=== PATIENT | male | born 1950 | race Caucasian/White ===

== ENCOUNTER 2016-09-11 19:50 | Inpatient (IN) | payer MEDICARE, OTHER ==
[~2016-09-11] VITALS: Ht 177.8 cm; Wt 114.9 kg
[2016-09-11] VITALS (10 sets, daily range): BP systolic 75–98; BP diastolic 39–83; PULSE 71–92; RESP 11–33; O2SAT 93–100
[2016-09-11] MEDS ORDERED: Heparin 1,000 Unit/mL 10 mL Inj ONE (20:04)
[2016-09-11] MEDS ORDERED: Nitroglycerin 50,000 mcg/250 mL D5W Premix IV ONE (20:04)
[2016-09-11] MEDS ORDERED: 0.9% Sodium Chloride 500 ML IV ONE ×2 (20:05→20:10)
[2016-09-11] MEDS ORDERED: Atropine 1 mg/10 mL (Code) Syringe ONE (20:05)
[2016-09-11] MEDS ORDERED: 0.9% Sodium Chloride 2,000 ML ONE (20:05)
[2016-09-11 20:18] LABS: Mean Corpuscular Hemoglobin 27.8 pg (27.0-35.0); Mean Corpuscular Volume 92.4 fL (81-100); Platelet Count 131 bil/L (150-400)
--- NOTE | 2016-09-11 20:25 | DRSVH ---
PROCEDURE: X-RAY CHEST ONE VIEW, PORTABLE ([id number]) INDICATIONS: intubated TECHNIQUE: One view of the chest was acquired. COMPARISON: None. FINDINGS: Surgical changes and devices: Pacemaker is present. Endotracheal tube is noted approximately 4.1 cm s uperior to the arash. Lungs and pleura: Increased pulmonary vascularity is present as well as increased retrocardiac opacit y. Mediastinum: Mediastinal contours appear normal. Heart size is enlarged. Bones and chest wall: No suspicious bony lesions. Overlying soft tissues appear unremarkable. IMPRESSION: Cardiomegaly with increased pulmonary vascularity suggestive of edema. In addition, there is increased retrocardiac opacity which could be represent a focal edema, atelectasis or potentially developing pneumonia. Dictated by: Leeanna Kruse M.D. on 09/11/2016 at 20:22 Approved by: Leeanna Kruse M.D. on 09/11/2016 at 20:23
--- NOTE | 2016-09-11 20:26 | ED.REPORT ---
HPI-General Illness Date of Service Sep 11, 2016 ED Provider: Dr. Christiano Bhagat M.D. A 66 year old male with a history of CHF, COPD, and multiple MIs s/p pacemaker placement presents to the ED via EMS intubated after having developed severe shortness of breath this evening. The patient's friend called EMS after he became short of breath and began to complain of left-sided chest pain. EMS found the patient tripoding and hypertensive. He was given Nitro x2 and placed on CPAP before eventually being intubated in the field. The patient was given Ketamine, Rocuronium, Morphine (10mg), and Valium (10mg) en route. There was no report of abdominal pain, nausea, vomiting, or fever. The patient has been intubated previously. Nursing Notes Stated Complaint: STEMI Chief Complaint: Critical Care/Intubated Nursing Notes Reviewed: Yes Allergies: Uncoded Allergies: SULFA (Allergy, Unknown, 09/11/16) General Time Seen by MD: 19:49 Chief Complaint Other (Shortness of Breath, Intubated) Hx Obtained From: EMS Unable to Obtain Hx: Patient condition (Intubated) Arrived By: Ambulance Sudden in Onset?: No Onset Occurred: 1 - 4 hours ago Symptom Duration: Since onset Associated with: Reports: Chest pain Pertinent Negative: Relieved by nothing Context Related History: Reports COPD Recent Healthcare: No recent doctor visit Similar Sx Previous: Yes Past Medical History Past Medical History Notes: Discharge diagnoses [facility] 08[facility]16: Dyspnea on exertion CHF Severe mitral regurgitation Recent syncopal event with ventricular tachycardia and ICD defibrillator firing Dilated non-ischemic CHrEF last EF 30-35% also with severe mitral regurgitation Nonobstructing disease on angiograph 2010 Patient is FULL CODE Past Medical History CHF COPD Multiple [place] Past Surgical History Pacemaker placement Smoking History Unknown if Ever Smoker Social History Other Social History: Good social support Review of Systems Unable to Obtain ROS Patient condition, Intubated Physical Exam Vital Signs Vital Signs Date Time Temp Pulse Resp B/P Pulse Ox O2 Delivery O2 Flow Rate FiO2 09/11/16 22:29 94 09/11/16 21:57 77 26 85/44 95 Mechanical Ventilator 09/11/16 21:18 92 33 94/73 97 Mechanical Ventilator 09/11/16 20:52 75 20 91/69 95 Mechanical Ventilator 09/11/16 20:42 75 20 84/63 100 Mechanical Ventilator 09/11/16 20:23 73 80/55 99 Mechanical Ventilator 09/11/16 20:03 73 19 76/39 09/11/16 19:57 71 11 90/66 100 Mechanical Ventilator 09/11/16 19:50 36.0 74 20 75/52 100 Mechanical Ventilator Initial VS: Reviewed ENT: Conjunctiva normal, No scleral icterus Skin: Warm, Dry, No cyanosis Alertness: Positive: Unresponsive Intubated Head / Eyes: Atraumatic, Normocephalic Pupil size 2mm, fixed Respiratory / Chest: Breath sounds = bilat Cardiovascular: Heart rate NL, Regular rhythm, No murmurs Heart Sounds / Murmur: Positive: Heart sounds diminished CARDIOVASCULAR: Pacemaker implant noted Abdomen: Soft No organomegaly Interpretation & Diagnostics Interpretation & Diagnostics: Initial K 6.2 with bicarb of 176 and lactate of 8.9 BLOOD GAS REPORT: Time: 20:22 pH 7.137 pCO2 49 pO2 98.9 cHCO3 16.5 cBase(B) -11.8 US ABDOMEN-LIMITED: IMPRESSION: Gallbladder wall thickening and slight pericholecystic fluid. This appearance could be due to acute or chronic cholecystitis or hepatocellular dysfunction. No gallstones identified. Nonvisualized pancreas. Transmitted to ED by radiologist Adamaris Conde M.D. at 09/12/2016 - 12:00:40 AM PDT Lab Results Interpretation Result Diagram: 09/11/162 09/11/16 2252 Test 09/11/16 20:00 09/11/16 22:22 White Blood Count 16.5th/mm3 (3.8-10.1) Red Blood Count 4.90mil/mm3 (4.40-5.80) Mean Corpuscular Volume 92.4fL (81-100) Mean Corpuscular Hemoglobin 27.8pg (27.0-35.0) Mean Corpuscular Hemoglobin Concent 30.0% (32.0-37.0) Red Cell Distribution Width 17.2% (12.3-15.4) Platelet Count 131bil/L (150-400) Neutrophils (%) (Auto) 57% (40-74) Lymphocytes (%) (Auto) 11% (14-46) Monocytes (%) (Auto) 25% (4-12) Eosinophils (%) (Auto) 0% (0-5) Basophils (%) (Auto) 0% (0-3) Band Neutrophils % 7% (1-5) Nucleated Red Blood Cells 3/100 WBC (0-24) Prothrombin Time 16.5sec (8.1-12.5) Prothromb Time International Ratio 1.53ratio D-Dimer 3.20mg/L FEU (<0.50) Magnesium Level 2.7mg/dL (1.6-2.6) Troponin T 0.068ug/L (0.0-0.011) Pro-B-Type Natriuretic Peptide 46430wd/mL (0-376) Lipase 75U/L (13-60) Hold Flores Top Tube Received (Received) Digoxin Level < 0.3nG/mL (0.9-2.0) Urine Color Dark yellow (YELLOW) Urine Appearance Slightly cloudy Urine pH 5.5 (5.0-8.0) Urine Specific Thorp 1.021 (1.003-1.035) Urine Protein >300mg/dL (NEG,TRACE) Urine Glucose (UA) 100mg/dL (NEGATIVE) Urine Ketones Negativemg/dL (NEGATIVE) Urine Occult Blood Large (NEGATIVE) Urine Nitrite Negative (NEGATIVE) Urine Bilirubin Moderate (NEGATIVE) Urine Ictotest Positive (Negative) Urine Urobilinogen 2.0mg/dL (NORMAL) Urine Leukocyte Esterase Trace (NEGATIVE) Urine RBC 11-50/hpf (0-2) Urine WBC 11-50/hpf (0-5) Urine Epithelial Cells Few/hpf (NONE-MOD) Urine Crystals Amorphous urates (NONE Urine Bacteria Moderate/hpf (NONE-FEW) Urine Hyaline Casts None/lpf (NONE) Urine Granular Casts None seen (NONE SEEN) Urine Waxy Casts None seen (NONE SEEN) Urine Red Blood Cell Casts None seen (NONE SEEN) Urine White Blood Cell Casts None seen (NONE SEEN) Urine Mucus None seen (None Seen) Urine Trichomonas None seen (NONE SEEN) Urine Yeast None (NONE SEEN) Urinalysis Comment None Urine Culture Reflexed Indicated ECG Interpretation ECG Interpretation: Regular wide-complex rhythm rate 75 No pacer spikes seen Time: 19:54 Interpreted by: ED physician X-Ray Chest Interpretation Chest Xray Interpretation: IMPRESSION: Cardiomegaly with increased pulmonary vascularity suggestive of edema. In addition, there is increased retrocardiac opacity which could be represent a focal edema, atelectasis or potentially developing pneumonia. Dictated by: Leeanna Kruse M.D. on 09/11/2016 at 20:22 View: Portable, 1 view Interpretation / Wet Read by: Interpret - Radiologist Chest Xray Interpretation: Surgical changes and devices: Pacemaker and endotracheal tube are unchanged. Right central venous catheters present the tip overlying the distal SVC. Nasogastric tube is present with distal tip projecting below the left hemidiaphragm. IMPRESSION: Interval support lines as above. Persistent bilateral patchy opacities as noted. Dictated by: Leeanna Kruse M.D. on 09/11/2016 at 22:08 View: Portable, 1 view Interpretation / Wet Read by: Interpret - Radiologist CT Head Interpretation CONCLUSION: No acute intracranial abnormality. Mild chronic changes. Transmitted to ED by Adamaris Conde M.D. at 09/12/2016 - 12:07:24 AM PDT Study: Head CT no contrast Interpretation / Wet Read by: Interpret - Radiologist CT Abd / Pelvis Interpretation CONCLUSION: Cardiomegaly. Pacemaker leads. Moderate dependent consolidation with air bronchograms in the lung bases. Small right pleural effusion. Coronary artery calcifications. Mild perihepatic and lower bowel fluid. Thickwalled appearance of the gallbladder is minimally distended. It contains mildly dense material suggesting vicarious contrast excretion, correlate with any prior angiogram or enhanced study. No evidence of bowel obstruction. Mild distal diverticulosis. Degenerative spine changes. Gonzalez catheter in the bladder. Mild fat-containing inguinal hernias. Transmitted to ED by Adamaris Conde M.D at 09/12/2016 - 12:07:24 AM PDT Study type: Abdominal CT no contrast Interpretation / Wet Read by: Interpret - Radiologist Procedures Central Line Placement Time: 21:13 Procedure Performed by: ED physician Consent / Setup / Site Prep: No consent - emergent, Time-out performed, Oxygen administered, Pulse oximeter applied, surveillance system monitor applied, Hand hygiene observed, Standard surgical scrub, Max barrier precaution, Sterile drapes applied, Position Trendelenburg Skin Preparation Agent: Hibiclens - Chlorhexidine Local Anesthesia: Lidocaine 1% Side / Location / Ultrasound: Internal jugular right, Ultrasound assisted Catheter / Lumen / Technique: Catheter size (7 German), Triple lumen, Seldinger technique, Good blood return, Secured w catheter device Post-Procedure / Complications: Dressing placed, CXR neg for pneumothorax, Condition improved, Tolerated procedure well, Patient stable Re-Eval/Medical Decision Med Decision/Clinical Course 65-year-old male presents critically ill after being intubated in the field. EMS report was of a STEMI, on my review of field tracings and our tracing here I did not agree. STEMI activation was canceled. The patient was hypotensive on arrival, he was given cautious fluid resuscitation based on concern for congestive heart failure. Though not febrile and although he had received steroids in the field so could possibly have had a leukocytosis on that basis, there was concern for pneumonia on the chest x-ray findings and he was initially treated with ICU/healthcare associated pneumonia coverage. When the transaminitis and elevated bilirubin and alkaline phosphatase were noted, a abdominal ultrasound was obtained and this was compatible with cholecystitis, coverage was provided with meropenem and surgery was consulted. Patient was hyperkalemic, this was treated with calcium gluconate, insulin and dextrose. He remained persistently hypotensive and was started on Levophed. Given his critical illness and anticipation of need for monitoring central venous pressures repleted repeat blood draws and multiple medications including vasoactive agents a central line was placed. No acute findings on plain CT, noncontrast CT abdomen did demonstrate the same findings as ultrasound had concern for possible cholecystitis. Source of Hx: Old records Time of Eval: 20:32 Patient Status: Condition unchanged Re-Evaluation/Progress Note: Patient rechecked. Time of Eval: 20:45 Patient Status: Condition unchanged Re-Evaluation/Progress Note: Patient rechecked. Plan for central line placement. Time of Eval: 21:04 Patient Status: Condition unchanged Re-Evaluation/Progress Note: Patient rechecked. Discussed patient's case and plan for central line placement with his close friend, who called EMS. Time of Eval: 22:03 Patient Status: Condition unchanged Re-Evaluation/Progress Note: Patient rechecked. Time of Eval: 22:20 Patient Status: Condition unchanged Re-Evaluation/Progress Note: Discussed central line placement, x-ray, and lab results with patient's close friend. She is trying to contract family. Time of Eval: 22:30 Re-Evaluation/Progress Note: Discussed plan for CT with patient's close friend. Also discussed x-ray and lab results, diagnosis, and plan for admit. Patient's friend agrees with plan for care and all questions were addressed. Time of Eval: 22:44 Patient Status: Condition improved Re-Evaluation/Progress Note: Patient is opening his eyes and able to shake his head in response to questions. Consultation #1: Referral / Consult Name: Cresencio Pendleton MD Consulted With: Cardiology Requested Call at: 20:00 Call Returned at: 20:06 Character Actor: Agrees with eval, Agrees with plan Note: Dr. Pendleton reviewed patient's ECG and agrees it does not indicate an acute STEMI. Consultation #2: Referral / Consult Name: Fide Connell MD Consulted With: Cardiology Call Returned at: 20:35 Character Actor: Agrees with eval, Agrees with plan Consultation #3: Call Returned at: 21:00 Character Actor: Agrees with eval, Agrees with plan Note: Nursing air crew supervisor Kaylynn from [facility]: Patient is too unstable to transfer. Consultation #4: Referral / Consult Name: Isidro Lazaro MD Consulted With: Surgeon Call Returned at: 22:23 Character Actor: Agrees with eval, Agrees with plan Note: Will consult Consultation #5: Referral / Consult Name: Annie Hutchinson DO Consulted With: Hospitalist Call Returned at: 22:32 Character Actor: Agrees with eval, Agrees with plan, Accepts admit Counseled Regarding: Diagnosis, Lab results, Need for admission Discharge & Departure Primary Impression: Severe sepsis Additional Impressions: Respiratory failure Chronicity: acute Respiratory failure complication: unspecified whether with hypoxia or hypercapnia Qualified Code: J96.00 - Acute respiratory failure , unspecified whether with hypoxia or hypercapnia CHF (congestive heart failure) Congestive heart failure type: unspecified congestive heart failure type Congestive heart failure chronicity: acute on chronic Qualified Code: I50.9 - Heart failure, unspecified Hyperkalemia Acute renal failure Acute renal failure type: unspecified Qualified Code: N17.9 - Acute kidney failure, unspecified Septic shock Disposition: ADMITTED TO HOSPITAL Discharge Condition All VS Reviewed: Yes Condition: Improved Crit Care Except Billable Proc Time Spent: 75-104 minutes Services Performed: Patient management by me, Time spent at bedside, Reviewing test results, Reviewing imaging, Discussing patient care, Documentation in record, Time with fam/surrogate Critical Care Notes: Multiple re-evaluations and prolonged time at the bedside Scribe Attestation Portions of this note were transcribed by Clara Christopher. IDr. Bhagat, personally performed the history, physical exam, and medical decision-making; I reviewed and confirmed the accuracy of the information in the transcribed note. Signed by: Analia Pfeifefr, 09/12/2016, 00:20 Christiano Bhagat MD Sep 11, 2016 20:26 CLARA CHRISTOPHER Sep 11, 2016 20:30
[2016-09-11 20:34] LABS: BASOPHILS % (AUTO) 0 % (0-3); D-Dimer 3.2 mg/L FEU (<0.50); EOSINOPHILS % (AUTO) 0 % (0-5); INR 1.53 ratio; MONOCYTES % (AUTO) 25 % (4-12); NEUTROPHILS % (AUTO) 57 % (40-74)
--- NOTE | 2016-09-11 20:34 | ABG ---
DateTimeAnalyzed 20:26:30 -_ pH ____7.137 - pCO2 ___48.8__ -mmHg pO2 ___98.9__ -mmHg HCO3- ___16.5__ -mmol/L ABE __-11.8__ -mmol/L tHb ___12.4__ -g/dL O2Hb ___92.8__ -% COHb ____2.4__ -% MetHb ___-0.1__ -% sO2 ___95.0__ -% FIO2 __100.0__ -% Drawn By LT - Date/Time Notified____ 20:33:00 -_ Notified By LT - Notified Whom _DR SLACK - B 762 -mmHg K+ ____5.7__ -mmol/L tO2 ___16.3__ -Vol% Randall test _Positive -
[2016-09-11] MEDS ORDERED: Norepineph 8,000 mCg/250 mL NS 8,000 MCG in IV Premix 1 EACH IV SCH (20:37)
[2016-09-11] MEDS ORDERED: Norepinephrine 8,000 mCg/250 mL NS Premix IV ONE (20:40)
[2016-09-11 20:47] LABS: Magnesium 2.7 mg/dL (1.6-2.6)
[2016-09-11 20:48] LABS: TROPONIN T 0.068 ug/L (0.0-0.011)
[2016-09-11] MEDS ORDERED: Calcium GLUCOnate 10% (Gm) 1 Gm/10 mL Inj IVPUSH PRN (21:15)
[2016-09-11] MEDS ORDERED: Insulin Human REGular-Omnicell 100 Unit/mL IV ONE (21:15)
[2016-09-11] MEDS ORDERED: levoFLOXacin Inj 750 MG in IV Premix 1 EACH IV ONE (21:45)
[2016-09-11] MEDS ORDERED: Piperacillin-Tazo 3.375 Gm Inj 3.375 GM in Dextrose 5% Minibag Plus 50 ML IV ONE (21:45)
--- NOTE | 2016-09-11 22:10 | DRSVH ---
PROCEDURE: X-RAY CHEST ONE VIEW, PORTABLE ([id number]) INDICATIONS: post central line insertion TECHNIQUE: One view of the chest was acquired. COMPARISON: [facility], CR, XR CHEST 1VW (PORTABLE), 09/11/2016, 19:51. FINDINGS: Surgical changes and devices: Pacemaker and endotracheal tube are unchanged. Right central venous cat heters present the tip overlying the distal SVC. Nasogastric tube is present with distal tip projecti ng below the left hemidiaphragm. Lungs and pleura: Bilateral patchy opacities are present with slight increased prominence in the left upper lobe compared to prior exam. Mediastinum: Mediastinal contours appear normal. Heart size is enlarged. Bones and chest wall: No suspicious bony lesions. Overlying soft tissues appear unremarkable. IMPRESSION: Interval support lines as above. Persistent bilateral patchy opacities as noted. Dictated by: Leeanna Kruse M.D. on 09/11/2016 at 22:08 Approved by: Leeanna Kruse M.D. on 09/11/2016 at 22:09
[2016-09-11] MEDS ORDERED: Furosemide 10 mg/mL 10 mL Inj IVPUSH ONE (22:15)
[2016-09-11] MEDS ORDERED: Meropenem Inj 1,000 MG in IV Premix 1 EACH IV ONE (22:25)
[2016-09-11 22:29] LABS: APPEARANCE,URINE SLIGHTLY CLOUDY (CLEAR,HAZY); COLOR,URINE DARK YELLOW (YELLOW); OCCULT BLOOD,URINE LARGE (NEGATIVE); PH,URINE 5.5 (5.0-8.0)
[2016-09-11 22:34] LABS: ICTOTEST,URINE POSITIVE (Negative)
--- NOTE | 2016-09-11 23:39 | ABG ---
DateTimeAnalyzed 23:34:07 -_ pH ____7.268 - 7.350 7.450 pCO2 ___29.4__ -mmHg 35.0 45.0 pO2 ___94.8__ -mmHg 70.0 100 HCO3- ___13.4__ -mmol/L 22.0 26.0 ABE __-12.3__ -mmol/L -2.0 2.0 tHb ___13.6__ -g/dL 12.0 18.0 O2Hb ___95.0__ -% 95.0 COHb ____2.4__ -% 1.5 MetHb ___-0.3__ -% 0.4 1.5 sO2 ___97.0__ -% 25.0 FIO2 ___60.0__ -% Drawn By LT - Date/Time Notified____ 23:38:00 -_ Notified By LT - Notified Whom DR SULLENBERGER - B 761 -mmHg K+ ____5.9__ -mmol/L tO2 ___18.2__ -Vol% Randall test _Positive -
[2016-09-11] MEDS ORDERED: Ondansetron 2 mg/mL 2 mL Inj IVPUSH PRN (23:40)
[2016-09-11] MEDS ORDERED: Alum-Mag Hydrox-Simeth 30 mL Suspension PO PRN (23:40)
[2016-09-11] MEDS ORDERED: Polyethylene Glycol (PEG) 17 Gm Powder PO PRN (23:40)
[2016-09-11] MEDS ORDERED: Propofol 10,000 mCg/mL 100 mL Inj ONE (23:41)
[2016-09-12] VITALS (13 sets, daily range): BP systolic 88–136; BP diastolic 49–74; PULSE 64–72; RESP 14–22; O2SAT 96–100
--- NOTE | 2016-09-12 00:03 | PCM.HPMED ---
Subjective Date of Service Sep 11, 2016 Primary Provider: Admitting Physician: Annie Hutchinson DO Primary Care Physician: Trey Attending Physician: Annie Hutchinson DO Admit Status: From the Emergency Department Chief Complaint: respiratory distress History of Present Illness: 65yoM with past medical history of COPD, CAD, LBBB, HFrEF (30-35%), VT s/p AICD placement, severe mitral regurgitation with recent admission to [place] admitted following episode of respiratory distress while at home. History is limited and obtained from caregiver and roommate who came with patient from home. As per caregiver. Patient with recent admission to [place] in [place] for a "heart issue" and pneumonia. His medications had been adjusted and an increase was made in furosemide. Since discharge patient has been fatigued with episodes of increased fatigue. He has been spending a good amount of time in his recliner due to fatigue and orthopnea. Over the past three days he has been mobile however increased fatigue the day of admission. Inability to sleep has also been noted with patient stating "something doesn't feel right". The day of admission patient was at baseline with fatigue. His caregiver left for a short trip to [place] and returned upon request of her who was concerned for Mr. Quigley's wellbeing. On arrival patient was short of breath with an ashen tone to his skin. EMS was called and while as per report patient was hypertensive in field after intubation and arrival to [facility] ED he was markedly hypotensive. No complaints have been noted by roommate regarding fevers, chills , nausea, vomiting, changes in bowel movements or urination. After arrival to CCU patient began opening eyes and endorsed having abdominal pain prior to admission but did shake his head answering no to new onset diarrhea. Mr. Quigley's most recent admission was at the [place] in [place] (documentation reviewed and in paper chart). Date of admission 08/06/2016 with discharge 2016. Patient presented with acute dyspnea on exertion without hypoxia. Due to a history of VT his ICD was interrogated and found to have VT associated with a syncopal episode 08/01/2016. Some concerns were expressed about medication optimization and upgrade of pacemaker to a dual chamber. Repeat ECHO was planned for 10/2016. Discharge weight 242lbs. (Admit at [facility] 252.56lbs). Review of Systems: unable to obtain review of systems as patient is sedated and intubated Allergies Uncoded Allergies: SULFA (Allergy, Unknown, 09/11/16) Home Medications med list as per paper chart received from [place]. Will need to verify with pharmacy. Losartan Metoprolol Melatonin Zolpidem Albuterol Guaifenesin Furosemide (recently increased to 120mg BID) Amiodarone Omeprazole Polyethylene glycol Pravastatin Sertraline Spironolactone Prazosin Clotrimazole Urea 10% lotion Prednisone PRN gout Finasteride Tiotropium Co-enzyme 10 Ginseng Psyllium Ranitidine Loratadine Multivitamin ASA PMH GERD Constipation COPD PTSD Prostate Cancer DAVIS on CPAP DM2, diet controlled, last A1c 5.7% CAD Atrial fibrillation, terminal system operator use of anticoagulation (as per documentation) HFrEF, EF 30% 10/13-16, AICD in place Peripheral neuropathy Spinal stenosis "gout" with atypical presentation of diffuse lower body weakness Colon polyps Carpal tunnel Depression Peripheral neuropathy HTN HLD Chronic pain Surgical History ICD placement Additional information unable to obtain as patient is sedated and intubated Family History Unable to obtain family history. Patient is intubated and sedated. Social History Occupation: lives with friend / caregiver Smoking Status: Unknown if Ever Smoker Living Arrangement: with Friends/Roommate Exam Vital Signs Vital Sign - Last Date Time Temp Pulse Resp B/P Pulse Ox O2 Delivery O2 Flow Rate FiO2 09/11/16 23:25 79 32 98/83 93 Room Air Mechanical Ventilator 09/11/16 19:50 36.0 Exam General: intubated, sedated, no acute distress Eyes: PERRLA, Scleral Anicteric Mouth: Mouth Normal, Mucous Membranes Dry/[place] Neck: Supple, no Thyromegaly, trachea central. unable to assess JVD. right IJ in place, dressing CDI Chest & Lungs: course rhonchi, anterior exam Cardiovascular: Normal S1, Normal S2, No Murmurs/Rubs/Gallops, Regular Rate/ Rhythm Pulses: Radial (present and equal), Dorsalis Pedi (present and equal) Abdomen: Soft, tenderness RUQ, distended, hypoactive bowel tones. Musculoskeletal: Unremarkable. no swollen or erythematous joints Extremities: 0-1+ pedal edema, no cyanosis, no clubbing. dressing over RLE CDI Skin: no rashes, ecchymosis Neurological: unable to assess Lymphatic: Lymph nodes Cervical and Axillary not palpable. Psych: unable to assess Lab and Diagnostics Result Diagram: 09/11/16225109/11/162251 X-Rays, CTs and MRIs Patient Name: CALLIE MERCADO MR#: [id number] [place] [facility] [place] Phys: Christiano Bhagat MD Date of Service: 09/11/161956 PROCEDURE: X-RAY CHEST ONE VIEW, PORTABLE ([id number]) INDICATIONS: intubated TECHNIQUE: One view of the chest was acquired. COMPARISON: None. FINDINGS: Surgical changes and devices: Pacemaker is present. Endotracheal tube is noted approximately 4.1 cm superior to the arash. Lungs and pleura: Increased pulmonary vascularity is present as well as increased retrocardiac opacity. Mediastinum: Mediastinal contours appear normal. Heart size is enlarged. Bones and chest wall: No suspicious bony lesions. Overlying soft tissues appear unremarkable. IMPRESSION: Cardiomegaly with increased pulmonary vascularity suggestive of edema. In addition, there is increased retrocardiac opacity which could be represent a focal edema, atelectasis or potentially developing pneumonia. Dictated by: Leeanna Kruse M.D. on 09/11/2016 at 20:22 Approved by: Leeanna Kruse M.D. on 09/11/2016 at 20:23 Assessment & Plan 65yoM with past medical history of COPD, CAD, LBBB, HFrEF (30-35%), VT s/p AICD placement, severe mitral regurgitation with [facility] following episode of respiratory distress while at home. Hypoxic hypercapneic respiratory failure, acute, POA -respiratory failure prior to presentation with intubation in the field -cont vent management -consult pulmonology in AM. Order placed Shock, septic vs cardiogenic -pressors, norepinephrine and dobutamine -goal MAP >65 -treatment as below Sepsis -likely septic shock, cholecystitis vs UTI vs SBP (less likely) vs PNA (HCAP), no new diarrhea imaging with no mention of colitis +risk factors for c. diff -CT concerning for cholecystitis -meropenem, vanc (pharmacy to dose) -surgery consulted in ED. Not currently a surgical candidate -may discuss in AM once stable, may require IR perc drain if cholecystitis -US results pending -procal pending -ID consult entered in CPOE, AM team to contact Acute on chronic heart failure (HFrEF), acute, POA -recent EF 30-35% -optimization of medications at discharge from [place] 08/11/2016 -ECHO ordered -fluid and lasix given in ED. Will hold further diuresis at this time and reassess in am COPD exacerbation, acute -presentation concerning for COPD exacerbation -distant h/o tobacco use, none current -cont albuterol q2PRN, albuterol ipratropium q4HR scheduled -125 methylpred q6hr x3. Metabolic gap acidosis, acute, POA -secondary to lactic acid and renal failure -1amp bicarb given, bicarb gtt started, vent adjusted -repeat ABG prn Acute renal failure, POA -multifactorial, pre-renal vs intrarenal (ATN vs AIN) -avoid nephrotoxic medications, hold ARB -nephrology consult in am, AM team to contact CHFrEF, acute exacerbation, POA -CHF exacerbation, last noted EF 30-35% with severe mitral regurgitation -increase weight gain of 10lbs over the last months, unknown if immediately prior to admission -recent increase in medications as per direct care staffer. -as per documentation patient takes lasix 120mg BID, increased metoprolol succinate dose 50mg BID, spironolactone 25mg daily, losartan increased to 50mg BID Hepatic failure, acute POA -shock liver from hypoperfusion possible congestive hepatopathy, distant history of ETOH use, mild LFT elevation as per PCP record, likely NAFLD -possible biliary obstruction - CT scan and US pending Abdominal pain, acute -patient able to answer yes to RUQ pain, tenderness on PE -labs suggest biliary obstruction, no comment regarding biliary tree, US pending Elevated troponin, acute -mildly elevated in the setting of renal failure however patient does have a history of CAD, HF and AICD placement -cardiology was consulted and EKG reviewed prior to admission -treatment as above Hyperkalemia, acute, POA -secondary to renal failure -monitor closely -calcium gluconate given in ED -kayexlate, albuterol, insulin and glucose given Hematuria, unknown chronicity, POA -continue to monitor -no nephrolithiasis seen on CT Elevated D-dimer, acute, POA -likely a/w chronic illness -PE not ruled out -VQ scan in am -chronically anticoagulated as per paper chart - INR subtherapeutic on admit Elevated glucose, acute, POA -history of diabetes -most recent hgba1c 5.7 as per paper record, unclear when this was complete -repeat hgb A1c pending Atrial fibrillation, chronic -reported to be on chronic anticoagulation however not documented on discharge summary from [facility] rec will require confirmation from pharmacy -repeat INR in am Pain Evaluation: Adequate Pain Control GI Prophylaxis: H2 kaleigh VTE Prophylaxis: Sub-Q Heparin (Unfractionated) Resuscitation Status: CPR: Attempt Resuscitation Time spent 60 minutes critical care time spent Annie Hutchinson DO Sep 12, 2016 00:03
[2016-09-12] MEDS ORDERED: Albuterol 0.5% (5mg/mL) 20 mL Inhalation Solution NEB ONE (00:20)
[2016-09-12] MEDS ORDERED: Sodium Polystyrene Sulfonate 0.25 Gm/mL 500 mL Suspension PO ONE (00:20)
[2016-09-12] MEDS ORDERED: Insulin Human REGular-Omnicell 100 Unit/mL IV ONE (00:20)
[2016-09-12] MEDS: Sodium Bicarb(50 mEq) 8.4% Inj 150 MEQ in Dextrose 5% 1,000 ML IV SCH ×3 (00:29→14:12)
[2016-09-12] MEDS: Chlorhexidine 0.12% 15 mL Oral Solution MT SCH ×7 (00:41→23:57)
[2016-09-12] MEDS: DOBUTamine 500 mg/250 D5W 500,000 MCG in IV Premix 1 EACH IV SCH ×2 (00:45→14:12)
--- NOTE | 2016-09-12 01:36 | ABG ---
DateTimeAnalyzed 01:30:43 -_ pH ____7.464 - pCO2 ___23.9__ -mmHg pO2 189 -mmHg HCO3- ___17.1__ -mmol/L ABE ___-5.8__ -mmol/L tHb ___11.9__ -g/dL O2Hb ___98.5__ -% COHb ____1.8__ -% MetHb ___-0.3__ -% sO2 __100.0__ -% FIO2 ___60.0__ -% PRVC 22 - PEEP ____5.0__ -cmH2O Drawn By RB - Date/Time Notified____ 01:35:00 -_ Spontaneous_RR 22 -b/min Oxygen Device 1 VENTILATOR - Notified By RB - Notified Whom JAZZY R, RN - B 760 -mmHg K+ ____4.5__ -mmol/L tO2 ___16.9__ -Vol% Randall test _Positive -
--- NOTE | 2016-09-12 02:16 | NUR ---
Admit to CCU Pt admitted to CCU room 2018 from ED. He was A&O x 3 and able to follow commands and answer yes/no questions, even while being on vent. Tele shows SR with IVCD and 1st degree AVB. SpO2 high 90s on Vent settings 60%/5/600/22. ABG and labs drawn and to lab. at bedside informing pt of status. Remains on norepi gtt and will start dobutamine as well as bicarb gtt. Propofol for sedation. Pt does report mild pain in abdomen, especially when touched. MD aware. Awaiting CT scans. OG to LIWS. WIll continue to follow labs and pt closely. Care ongoing
[2016-09-12 02:51] LABS: Mean Corpuscular Hemoglobin 27.8 pg (27.0-35.0); Mean Corpuscular Volume 90.3 fL (81-100)
[2016-09-12 03:05] LABS: INR 2.22 ratio
[2016-09-12 03:12] LABS: BASOPHILS % (AUTO) 0 % (0-3); EOSINOPHILS % (AUTO) 0 % (0-5); MONOCYTES % (AUTO) 11 % (4-12); NEUTROPHILS % (AUTO) 75 % (40-74); Platelet Count 122 bil/L (150-400)
[2016-09-12 03:19] LABS: TROPONIN T 0.057 ug/L (0.0-0.011)
--- NOTE | 2016-09-12 03:41 | PCM.CONPHA ---
Subjective Date of Service: Sep 12, 2016 Requesting Provider: Annie Hutchinson DO respiratory distress History of Present Illness severe septic shock (cholecystitis) vs UTI vs HCAP (recent hospitalized in Jul) vs SBP (less likely) Reason for Pharmacy Consult: Vancomycin Dosing Objective Vital Signs Date Time Temp Pulse Resp B/P Pulse Ox O2 Delivery O2 Flow Rate FiO2 09/12/16 02:23 67 96/74 100 40 09/12/16 00:35 Ventilator 09/12/16 00:00 36.5 72 22 88/60 100 Mechanical Ventilator 60 09/11/16 23:25 79 32 98/83 93 Room Air Mechanical Ventilator 09/11/16 22:29 94 09/11/16 21:57 77 26 85/44 95 Mechanical Ventilator 09/11/16 21:18 92 33 94/73 97 Mechanical Ventilator 09/11/16 20:52 75 20 91/69 95 Mechanical Ventilator 09/11/16 20:42 75 20 84/63 100 Mechanical Ventilator 09/11/16 20:23 73 80/55 99 Mechanical Ventilator 09/11/16 20:03 73 19 76/39 09/11/16 19:57 71 11 90/66 100 Mechanical Ventilator 09/11/16 19:50 36.0 74 20 75/52 100 Mechanical Ventilator Intake and Output 09/10/16 09/11/16 09/12/16 00:00 00:00 00:00 Intake Total 1500 ml Balance 1500 ml Weight (Kilograms): 114.800 Height (Feet): 5 Height (Inches): 10.00 Test 09/11/16 20:00 09/11/16 22:22 09/12/16 02:35 Band Neutrophils % 7% (1-5) Nucleated Red Blood Cells 3/100 WBC (0-24) D-Dimer 3.20mg/L FEU (<0.50) Magnesium Level 2.7mg/dL (1.6-2.6) Pro-B-Type Natriuretic Peptide 45036wl/mL (0-376) Lipase 75U/L (13-60) Procalcitonin 0.18ng/mL (0.00-0.08) Hold Flores Top Tube Received (Received) Digoxin Level < 0.3nG/mL (0.9-2.0) Urine Color Dark yellow (YELLOW) Urine Appearance Slightly cloudy Urine pH 5.5 (5.0-8.0) Urine Specific [place] 1.021 (1.003-1.035) Urine Protein >300mg/dL (NEG,TRACE) Urine Glucose (UA) 100mg/dL (NEGATIVE) Urine Ketones Negativemg/dL (NEGATIVE) Urine Occult Blood Large (NEGATIVE) Urine Nitrite Negative (NEGATIVE) Urine Bilirubin Moderate (NEGATIVE) Urine Ictotest Positive (Negative) Urine Urobilinogen 2.0mg/dL (NORMAL) Urine Leukocyte Esterase Trace (NEGATIVE) Urine RBC 11-50/hpf (0-2) Urine WBC 11-50/hpf (0-5) Urine Epithelial Cells Few/hpf (NONE-MOD) Urine Crystals Amorphous urates (NONE Urine Bacteria Moderate/hpf (NONE-FEW) Urine Hyaline Casts None/lpf (NONE) Urine Granular Casts None seen (NONE SEEN) Urine Waxy Casts None seen (NONE SEEN) Urine Red Blood Cell Casts None seen (NONE SEEN) Urine White Blood Cell Casts None seen (NONE SEEN) Urine Mucus None seen (None Seen) Urine Trichomonas None seen (NONE SEEN) Urine Yeast None (NONE SEEN) Urinalysis Comment None Urine Culture Reflexed Indicated Red Blood Count 4.13mil/mm3 (4.40-5.80) Hemoglobin 11.5g/dL (13.8-17.2) Hematocrit 37.3% (41.0-50.0) Mean Corpuscular Volume 90.3fL (81-100) Mean Corpuscular Hemoglobin 27.8pg (27.0-35.0) Mean Corpuscular Hemoglobin Concent 30.8% (32.0-37.0) Red Cell Distribution Width 16.7% (12.3-15.4) Assessment/Plan Assessment/Plan A/ - 65 y/o male patient brought in ED intubated en route by EMS for severe septic shock which suspected cholecystitis vs UTI vs HCAP vs SBP, and needed Vancomycin therapy as empirical coverage - In ED, one time dose of following: Zosyn, Levaquin, Meropenem, Vancomycin 2G were given; Meropenem, doxycycline, and Vancomycin to be continued - WBC; 16.5, lactic acid: 6.8, urine and blood cultures (x2) are pending - Weight: 114.8 kg, ht: 177.8 cm, SCr: 2.59 mg/dL (acute renal failure), est. clearance ~ 33 ml/min, t1/2 ~21 hrs - As mentioned above, patient is currently intubated and on norephinephrine and dobutamine P/ - Recommend Vancomycin 1250 mg iv q24h; however due to unstable renal function and complexity of the case, day team pharmacists are going to re- evaluate and order the regimen depending on patient's clinical responses. Thank you for consulting clinical pharmacy in the care of this patient Miguel Angel Siddiqi PharmD, [facility] Luciana Siddiqi Sep 12, 2016 03:41
[2016-09-12] MEDS: Insulin Human REGular 100 Units/100 mL NS IV SCH ×4 (05:56→23:23)
--- NOTE | 2016-09-12 06:02 | ABG ---
DateTimeAnalyzed 05:56:46 -_ pH ____7.473 - pCO2 ___25.8__ -mmHg pO2 ___82.5__ -mmHg HCO3- ___18.9__ -mmol/L ABE ___-4.1__ -mmol/L tHb ___11.4__ -g/dL O2Hb ___95.2__ -% COHb ____1.8__ -% MetHb ___-0.3__ -% sO2 ___96.7__ -% FIO2 ___40.0__ -% PRVC 18 - PEEP ____5.0__ -cmH2O Vt __600.0__ -L Drawn By RB - Spontaneous_RR 18 -b/min Oxygen Device 1 VENTILATOR - Notified By RB - Notified Whom JAZZY R, RN - B 759 -mmHg K+ ____4.5__ -mmol/L tO2 ___15.3__ -Vol% Randall test _Positive -
[2016-09-12] MEDS: fentaNYL 2,500 mCg/250 mL IV Premix IV SCH ×2 (06:15→23:57)
[2016-09-12] MEDS: Propofol Inj 1,000,000 MCG in IV Premix 1 EACH IV SCH ×2 (06:39→15:56)
[2016-09-12] MEDS ORDERED: Albuterol HFA 200 Puff Inhaler (Vent Pts Only) VENTILATOR PRN (07:05)
--- NOTE | 2016-09-12 07:08 | DRSVH ---
PROCEDURE: US ABDOMEN ([id number]) INDICATIONS: 65-year-old nonresponsive male. TECHNIQUE: Real-time scanning was performed of the abdominal and retroperitoneal organs, with image documentatio n. COMPARISON: None. FINDINGS: Preliminary interpretation rendered by [facility]. Liver: Liver is normal in size and homogeneous in echotexture. Gallbladder: There is diffuse gallbladder wall thickening up to 6.7 mm. No gallstones or gallbladde r sludge. Pericholecystic fluid is present. Biliary ducts: Intrahepatic bile ducts are non-dilated. Extrahepatic bile duct caliber measures 4.0 mm. Normal is 6-7 mm or less in diameter, or 10 mm or less post-cholecystectomy. Pancreas: Obscured by bowel gas. Spleen: Spleen is normal in size , with several echogenic calcified splenic granulomas. Kidneys: Kidneys are normal in size and echotexture. Right kidney measures 10.5 cm long; left kidne y measures 9.5 cm long. No hydronephrosis or nephrolithiasis. No solid masses. Aorta: Visualized aorta is normal in caliber at less than 3 cm. Iliacs: Proximal common iliac arteries are normal in caliber at less than 2.5 cm. IVC: Intrahepatic inferior vena cava is patent. Miscellaneous: No free abdominal fluid. IMPRESSION: 1. Diffuse gallbladder wall thickening would be worrisome for acalculous cholecystitis in the [facility] clinical setting. Other differential diagnoses may include sequelae of acute hepatitis, conges tive heart failure, underlying chronic liver disease, hypoproteinemia, or pancreatitis. 2. Splenic remote granulomatous disease. No significant discrepancy with preliminary [facility] report. Dictated by: Gadiel Will M.D. on 09/12/2016 at 6:58 Approved by: Gadiel Will M.D. on 09/12/2016 at 7:07
--- NOTE | 2016-09-12 07:43 | DRSVH ---
PROCEDURE: CT BRAIN WITHOUT CONTRAST ([id number]) INDICATIONS: 65-year-old unresponsive intubated male. TECHNIQUE: Noncontrast 4.5 mm thick angled axial sections acquired from the foramen magnum to the vertex, with c oronal reformats. COMPARISON: None. FINDINGS: Preliminary interpretation rendered by [employer] [facility]. Image quality: Excellent. CSF spaces: Basal cisterns are patent. No extra-axial fluid collections. Ventricles are normal in size and shape. Brain: No midline shift. No intracranial masses or hemorrhage. [place]-white matter interface is norm al. There is patchy intracranial internal carotid artery atherosclerosis. Skull and face: Calvarium and visualized facial bones are intact, without suspicious lesions. Endot juliet tube is present. Sinuses: Visualized sinuses and mastoids are clear. IMPRESSION: No acute intracranial abnormalities. [facility] Dictated by: Gadiel Will M.D. on 09/12/2016 at 7:40 Approved by: Gadiel Will M.D. on 09/12/2016 at 7:42
[2016-09-12 08:29] LABS: Bilirubin, Direct 1.6 mg/dL (0.0-0.3)
[2016-09-12] MEDS: Vancomycin Dose per Pharmacist XX SCH ×2 (08:30→08:38)
[2016-09-12] MEDS: Famotidine Inj 20 MG in IV Premix 1 EACH IV SCH (08:37)
[2016-09-12] MEDS: Heparin 5,000 Unit/mL Inj SUBQ SCH ×3 (08:38→23:57)
--- NOTE | 2016-09-12 09:00 | DRSVH ---
PROCEDURE: CT ABDOMEN AND PELVIS WITHOUT CONTRAST ([id number]) INDICATIONS: 65-year-old unresponsive male. TECHNIQUE: Noncontrast 5 mm thick sections acquired from the diaphragms to the symphysis. 5 mm coronal and sagi ttal reformats were then performed. For radiation dose reduction, the following was used: automated exposure control, adjustment of mA and/or kV according to patient size. COMPARISON: [facility], , US ABDOMEN, 09/11/2016, 21:59. FINDINGS: Preliminary interpretation rendered by [employer] [facility]. Image quality: Excellent. ABDOMEN: Lung bases: There is moderate cardiomegaly; pacemaker wires are present. There is bibasilar atelect asis, as well as trace basal right pleural effusion. Solid organs: Liver and spleen are normal in size. Gallbladder demonstrates circumferential wall th ickening, with hyperdense internal gallbladder sludge . Pancreas is normal in contours, without neeraj pancreatic inflammatory fat stranding. No adrenal nodules. Kidneys are normal in size, without hydr onephrosis or nephrolithiasis. Peritoneum and bowel: Nasogastric tube is in expected position. Unenhanced bowel loops demonstrate normal wall thickness and caliber. The appendix is normal in caliber. There is mild sigmoid colon d iverticulosis. No free fluid or air. Nodes and vessels: No retroperitoneal or mesenteric adenopathy by size criteria. Aorta and inferior vena cava are normal in caliber, with aortoiliac atherosclerosis. Miscellaneous: No ventral hernias. PELVIS: Genitourinary: Bladder is decompressed by a Gonzalez catheter. Miscellaneous: Small bilateral fat containing inguinal hernias are present. No inguinal adenopathy by CT size criteria. Bones: No suspicious bony lesions. No vertebral body compression fractures. There is grade 1 L4-L5 spondylolisthesis from facet joint arthropathy. IMPRESSION: 1. Constellation of findings suspicious for acalculous cholecystitis. 2. Moderate cardiomegaly, as well as trace basal right pleural effusion. 3. Mild sigmoid colon diverticulosis. 4. Small bilateral fat containing inguinal hernias. [facility]. Dictated by: Gadiel Will M.D. on 09/12/2016 at 8:50 Approved by: Gadiel Will M.D. on 09/12/2016 at 8:59
[2016-09-12] MEDS: Doxycycline Inj 100 MG in Dextrose 5% Minibag Plus 100 ML IV SCH ×2 (09:21→19:39)
--- NOTE | 2016-09-12 10:14 | DRSVH ---
PROCEDURE: US VENOUS LEG DUPLEX BILATERAL INDICATIONS: 65-year-old male with possible deep venous thrombosis. TECHNIQUE: Real-time imaging, as well as color and pulse Doppler interrogation, were performed of the deep veins of both legs from the inguinal ligament to the popliteal fossa. COMPARISON: None. FINDINGS: The deep veins are normally compressible, and free of intraluminal thrombus. Color and pu lse Doppler demonstrate normal phasic intravascular flow. There is normal augmentation response to d istal compression maneuver. IMPRESSION: No sonographic evidence for lower extremity deep venous thrombosis. Dictated by: Gadiel Will M.D. on 09/12/2016 at 10:11 Approved by: Gadiel Will M.D. on 09/12/2016 at 10:13
--- NOTE | 2016-09-12 10:49 | CONS ---
[address] [address] CONSULTATION REPORT PATIENT: LUIS LEON : 1950 MR#: [id number] ADMIT: 09/11/2016 JOB ID: [id number] DATE OF SERVICE: 09/12/2016 SURGICAL CONSULTATION: IDENTIFICATION: The hospitalist service and Dr. Washington of the emergency department have asked General Surgery to consult on this 65-year-old man in the ICU regarding possible cholecystitis. HISTORY OF PRESENT ILLNESS: The patient was admitted late last night, either seen or discussed with Dr. Lazaro of the General Surgery service. The patient is currently intubated but the history I can obtain from the chart is that he had a recent admission to the [facility] for heart issues and pneumonia, and after discharge he has had continued fatigue and orthopnea with marked increase in the three days prior to admission. The patient then developed shortness of breath and was noted in the field to be hypertensive immediately after intubation. However, when he arrived at [facility], he was markedly hypotensive. He is now in the ICU intubated. PAST MEDICAL HISTORY: 1. Heart failure. 2. History of atrial fibrillation, on anticoagulation. 3. Pacemaker and ICD placement in the past. 4. Diabetes. 5. Obstructive sleep apnea. 6. History of prostate cancer. 7. History of gout. 8. History of depression. 9. Hypertension. 10. Hyperlipidemia. MEDICATIONS: Per medication list which I have reviewed. SOCIAL HISTORY, FAMILY HISTORY, REVIEW OF SYSTEMS: Per admission history and physical as well as Dr. Bhagat's emergency department note. PHYSICAL EXAMINATION: The patient is in the ICU intubated though he is able to nod yes and no appropriately to my questions. He is afebrile. His pulse is in the 60s. His blood pressure is last recorded at 102/60. He is on 40% FiO2 with 97% oxygen saturation. Sclerae are clear. His abdomen is protuberant but nontender. It is not tense. He does not have any right upper quadrant tenderness. Rectal is not performed. LABORATORIES: His admission white count was 16.5 with a followup 41.5. Just six hours later, his hematocrit dropped from 45 to 37 during that time period. He does have a marked left shift. Chemistries on admission demonstrated a low bicarbonate and a potassium of 6 and follow up labs show a potassium of 4.7, but still with a low bicarbonate of 16 and an anion gap of 24. His creatinine is elevated at 2.59 with follow up to 2.62. Glucose was 166 on admission, is now 262. Lactic acid was 6.8 on admission and has come down to 6.0, then bumped back up to 6.5. Initial bilirubin was 3.5, and it seems to have peaked at 3.9 and is now at 3.3, although his transaminases continue to trend up from 700 and 800 range on admission to current and 4000 range early this morning. IMAGING: Abdominal and pelvis CT demonstrated a thickened gallbladder, no other intra-abdominal pathology other than a little bit of free fluid and some fat-containing groin hernias, but with notable cardiomegaly and right pleural effusion. IMPRESSION/PLAN: A 65-year-old man who presents with unexplained hypotension after pulmonary deterioration now has a rising white count and rising liver function tests. The degree of elevation of his transaminases is relatively atypical for acalculous cholecystitis. Regarding further workup for that diagnosis given his rising LFTs, I am not sure that a HIDA scan would necessarily show visual excretion of the dye, and as well, one could simply consider an empiric percutaneous drainage of his gallbladder. I think it will be important to sort out whether his shock is primarily cardiogenic or primarily septic, however. At this point, I have a low index of suspicion for intra-abdominal catastrophe that would require an operation. If he does have acalculous cholecystitis, the recommendation would be for a percutaneous drain rather than an excision of his gallbladder given his critical nature. General Surgery will continue to follow along with the hospitalist and ICU service.
[2016-09-12] MEDS: Albuterol-Ipratropium 3 mL Inhalation Solution NEB SCH ×3 (10:56→19:47)
[2016-09-12] MEDS ORDERED: Phytonadione (Adult) 10 MG in Dextrose 5%-Pha MIX 50 ML IV ONE (11:00)
[2016-09-12] MEDS ORDERED: 0.9% Sodium Chloride 250 ML IV PRN (11:00)
[2016-09-12 11:18] LABS: D-Dimer 8.77 mg/L FEU (<0.50)
[2016-09-12] MEDS: Dextrose 5% 0.9% NaCl 1,000 ML IV SCH (11:47)
--- NOTE | 2016-09-12 12:52 | NUR ---
NUTRITION ASSESSMENT: ASSESS:65 YO male admitted to CCU following respiratory distress at home, intubated in the field for hypoxic, hypercapnic respiratory failure and shock (sepsis vs. cardiogenic). Patient with recent admission to [facility] in [place] for cardiac issues and pneumonia. His medications were adjusted with an increase in furosemide. Since discharge patient has been fatigued. Surgery consult initiated due to rising white count and liver function tests. Per surgery, the degree of elevation of his transaminases is relatively atypical for acalculous cholecystitis, and surgery has a low index of suspicion for intra-abdominal catastrophe that would require surgery. Once etiology of shock determined, surgery will consider percutaneous drain rather than excision of gallbladder, given patient's critical status. Code status: full. PMHx:GERD, constipation, COPD, PTSD, prostate cancer, DAVIS on CPAP, DM2, CAD, A-fib, CHF, peripheral neuropathy, spinal stenosis. gout, colon polyps, carpal tunnel, depression, HTN, HLD, chronic pain. DIET:NPO. LABS: Chloride 94, CO2 16, BUN 47, Cr 2.62, Glucose 262, A1c pending, Lactic Acid 6.5, Ca 8.2, Total Bili 3.3, AST 6967, ALT 4154, Alk Phos 327, Alb 3.1. MEDICATIONS: Insulin, fentanyl, propofol. NUTRITION FOCUSED PHYSICAL ASSESSMENT: GI symptoms / stool: No stool reported.Leoncio: 9. Skin Integrity: No issues reported. ANTHROPOMETRICS: Current Wt: 114.8 kgBMI: 36.0 kg/m2. IBW: 75.45 kg (152% IBW) ESTIMATED NEEDS (CLASS II OBESITY, VENT) Calories: 1660 - 1886 kcal (22 - 25 kcal / kg IBW) Protein: 136 - 151 g protein (1.8 - 2.0 g / kg IBW) Fluid: Approx. 2870 mL (25 mL / kg BW) NUTRITION DIAGNOSIS: 1)Inadequate oral intake related to inability to consume sufficient energy, as evidenced by NPO / vent status. 2)Altered GI function related to potential acalculous cholecystitis, as evidenced by significantly elevated LFT's, bili, alk phos. INTERVENTION: 1) In the event pt. unable to be extubated over weekend and cholecystitis ruled out, recommend initiate enteral feeding. Formula selection dependent on GI status. MONITOR/EVALUATE: NPO / vent status, labs, GI/nutrition status. Follow up per high nutrition risk guidelines.
--- NOTE | 2016-09-12 13:12 | ABG ---
DateTimeAnalyzed 13:08:00 -_ pH ____7.397 - pCO2 ___40.0__ -mmHg pO2 ___38.6__ -mmHg HCO3- ___24.1__ -mmol/L ABE ___-0.2__ -mmol/L tHb ___10.6__ -g/dL O2Hb ___66.2__ -% COHb ____1.5__ -% MetHb ____1.0__ -% sO2 ___67.9__ -% FIO2 ___40.0__ -% PRVC 510 - PEEP ____5.0__ -cmH2O Set_RR ___14.0__ -b/min Vt __578.0__ -L Drawn By jmw - Date/Time Notified____ 13:12:00 -_ Spontaneous_RR ___18.0__ -b/min Oxygen Device 1 VENTILATOR - Notified By JMW - Notified Whom DR PARIMI - B 763 -mmHg tO2 ____9.8__ -Vol% Randall test N/A -
--- NOTE | 2016-09-12 13:24 | CONS ---
[address] [address] CONSULTATION REPORT PATIENT: LUIS LEON : 1950 MR#: [id number] ADMIT: 09/11/2016 JOB ID: [id number] DATE OF SERVICE: 09/12/2016 PULMONARY CRITICAL CARE CONSULTATION NOTE: The patient is a 65-year-old man seen in consultation at the request of Dr. Dione Soto for acute respiratory failure and septic shock. HISTORY OF PRESENT ILLNESS: The patient was intubated when I met him so most of the history is obtained from review of medical records. The patient has a history of coronary artery disease, diabetes, ischemic cardiomyopathy, severe mitral regurgitation for which he was hospitalized in July at the [facility] in [place]. He was treated for decompensated heart failure. Per ED records, history prior to coming to the hospital was limited but the patient had been feeling poorly and his power of real estate attorney/caregiver found him extremely fatigued, with severe shortness of breath. He was brought into the emergency department and was severely hypotensive and intubated. He is currently in the ICU on dobutamine, norepinephrine infusions on the ventilator at 50% FiO2. Imaging of the abdomen and brain was performed. He had some basilar atelectasis on chest CT and evidence of gallbladder wall thickening suggesting acalculous cholecystitis on abdomen CT. Past medical history, social history, family history, and review of systems could not be obtained directly from the patient because he was intubated. Based on review of records, the following information is available. PAST MEDICAL HISTORY: 1. Ventricular tachycardia with AICD. 2. Ischemic cardiomyopathy with EF around 25%-30%. 3. Severe mitral regurgitation. 4. Type 2 diabetes. SOCIAL HISTORY: He is a . PHYSICAL EXAMINATION: Vital signs reviewed. Temperature 36.2, pulse 67, respirations 18, BP 100/67, sats 98% on 40% FiO2. General: Intubated, sedated, but he does nod in response to questions appropriately. Chest: Clear to auscultation. Heart: Regular rate and rhythm. HEENT: ET tube in place. No scleral icterus. Abdomen: Distended, tender on deep palpation to the right upper quadrant. Skin: No rashes. Extremities: No cyanosis, clubbing or edema. LABORATORIES: Reviewed. Notable for WBC up to 41 from 16.5, hemoglobin 11.5, platelets 122. Coags notable for INR up to 2.2 from 1.5. Chemistry reviewed and shows sodium 134, potassium 4.7, chloride 94, bicarbonate 16, BUN 47, creatinine of 2.6. Lactate is 6.8 at last check which has been unchanged for many hours. When he came in the lactate was 8.9. LFTs are notable for AST of 6900, ALT of 4000, alk phos of 300. Troponin is 0.05. Bilirubin is 3.3. Procalcitonin is 0.18. Cultures: No growth on blood cultures so far. IMAGING: Chest x-ray reviewed and shows massive cardiomegaly and a small patchy infiltrate in the left upper lobe but otherwise clear. CT of the abdomen and pelvis reviewed and shows bilateral basilar consolidation/atelectasis with trace right pleural effusion. Venous duplex from this morning shows no DVT. Abdominal ultrasound from this morning shows diffuse gallbladder wall thickening which could be worrisome for acalculous cholecystitis. Differential includes congestive heart failure, chronic liver disease, etc. Abdominal CT also shows circumferential gallbladder wall thickening with internal gallbladder sludge. Arterial blood gas shows pH of 7.47, pCO2 of 25, pO2 of 82, bicarbonate of 18. ASSESSMENT AND RECOMMENDATIONS: 1. Septic shock. 2. Acute hypoxic respiratory failure. 3. Shock liver. 4. Coagulopathy-DIC versus liver failure. 5. Severe lactic and metabolic acidosis. 6. Acute kidney injury. 7. Suspected acalculous cholecystitis. 8. Ischemic cardiomyopathy. Ejection fraction around 25%. 9. Known severe mitral regurgitation. The patient is a 65-year-old man who has not previously been seen at [facility], presenting in septic shock, respiratory failure, with multiorgan dysfunction including hepatic failure, renal failure. Regarding source of this problem, differential would include pneumonia, acalculous cholecystitis, cardiogenic shock or PE. With regard to pneumonia, his procalcitonin is low and his chest CT is not very impressive with regards to his pulmonary infiltrates which seem like basilar atelectasis to me. He had a stat repeat echo this morning and on brief discussion with Dr. Nogueira with Cardiology, all of the findings on echo seem stable compared to his known previous baseline of EF 25% and severe mitral regurgitation. There are no visible new wall motion abnormalities on echo either. RV function appears normal on echo also. Lower extremity duplex is negative and this makes PE unlikely in combination with a normal appearing right ventricle. Finally that leaves us the possibility of a gallbladder problem such as gangrenous cholecystitis. Dr. Gordon with surgery has seen the patient and is going to speak with Dr. Gamino in Interventional Radiology regarding whether a percutaneous tube is a better option. Regarding the coagulopathy, there are two possible etiologies-consumption due to DIC versus shock liver and hepatic dysfunction. We are going to check a DIC panel to see what the likelier explanation is. In the meantime, I am going to give him 2 units of FFP to correct this in the event of any procedure. For antibiotics, he is on meropenem, got one dose of vancomycin in the emergency department and is also getting doxycycline for atypical coverage. He is currently on dobutamine and norepinephrine. I think we can continue these. He is a FULL CODE per discussion with his power of real estate attorney, Taylor. CRITICAL CARE TIME: 60 minutes.
[2016-09-12] MEDS: Meropenem Inj 1,000 MG in IV Premix 1 EACH IV SCH ×2 (13:51→23:56)
[2016-09-12 15:08] LABS: INR 2.08 ratio
--- NOTE | 2016-09-12 15:09 | DRSVH ---
[facility] [address] [place] [address] Echocardiogram Report Name: LUIS LEON LStudy Date: 09/12/2016 Height: 70 in Hospital Exam Location: [facility] Weight: 253 lb Gender: Male BSA: 2.3 m2 : 1950 Age: 65 yrs BP: 93/59 mmHg Reason For Study: HEART/RESPIRATORY FAILURE Ordering Physician: Performed By: Raza Wright Interpretation Summary 1. Markedly dilated left ventricle with upper limits of normal wall thickness and globally reduced systolic function with an estimated EF of 25 to 30% 2. Mildly dilated right ventricle with low normal systolic function. 3. Severe mitral regurgitation into a dilated left atrium There is no old study for comparison Procedure: A two-dimensional transthoracic echocardiogram with color flow and Doppler was performed. The study quality was technically adequate. There is no prior echocardiogram noted for this patient. A contrast injection of Definity was performed to improve assessment of LV function. The patient was supine and on a ventilator during the exam. Left Ventricle: The left ventricle is markedly dilated. The measured end diastolic dimension is 8.2 cm. Left ventricular wall thickness is at the upper limits of normal. The ejection fraction is estimated to be 25-30%. Right Ventricle: The right ventricle is mildly dilated. There is a pacemaker lead in the right ventricle. Right ventricular systolic function is borderline reduced. Atria: There is severe biatrial enlargement. No color doppler evidence for an ASD. Mitral Valve: The mitral valve does not coapt properly. There is severe mitral regurgitation. Flow reversal noted in pulmonary veins consistent with significant mitral regurgitation. Aortic Valve: The aortic valve is trileaflet. The aortic valve opens well. No aortic regurgitation is present. Tricuspid Valve: The tricuspid valve is normal in structure and function. There is mild tricuspid regurgitation. Right ventricular systolic pressure is estimated to be 23 mmHg plus the clinically estimated CVP which cannot be estimated on this exam. Pulmonic Valve: The pulmonic valve is not well seen, but is grossly normal. There is trace pulmonic regurgitation. Great Vessels: The aortic root is normal size. The dimensions of the ascending aorta are normal. The pulmonary artery is normal size. Inspiratory collapse cannot be assessed because of mechanical ventilation, thus CVP cannot be estimated.. The IVC has a measurement of 25 mm. Pericardium/ Pleura There is no pericardial effusion. There is no pleural effusion. MMode/2D Measurements & Calculations LVIDd: 8.2 cm LA dimension: 5.9 cm RA long axis: 6.5 cm Ao root diam LVIDs: 7.0 cm FS: 14.5 % LA A2 area: 41.5 cm RA area: 29.6 cm Aortic Jxn EPSS: 2.9 cm LA A4 area: 40.3 cm RA vol: 115.0 ml IVSd: 0.84 cm LA length (vol): 7.7 cm RA : 49.8 ml/m2 asc Aorta LVPWd: 1.2 cm LA vol: 183.3 ml Diam: 3.4 cm LA vol index IVC diam: 2.5 cm EDV(MOD-sp2) LV lima. diameter/BSA LV sys. diameter/BSA RVD1 (basal) : 264.9 ml (cm/m^2): 3.6 (cm/m^2): 3.0 : 4.6 cm RVD2 (mid) : 4.0 cm Doppler Measurements & Calculations Ao V2 max MV E max eric MV E/A: 1.4 TR max eric : 135.7 cm/sec : 92.8 cm/sec Med Peak E' Eric : 237.0 cm/sec Ao max PG MV A max eric TR max PG : 7.4 mmHg : 66.3 cm/sec E/E' med: 21.9 : 22.5 mmHg Ao mean PG MV A dur: 0.15 sec PA V2 max : 4.5 mmHg : 94.5 cm/sec PA mean PG PA Accel Time : 0.07 sec MV dec time Ao V2 mean MR PISA radius PA V2 mean : 0.15 sec : 103.4 cm/sec : 65.5 cm/sec Ao V2 VTI: 29.2 cm PA pr(Accel) : 41.6 mmHg Reading Physician:03:08 PM
[2016-09-12 15:33] LABS: BASOPHILS % (AUTO) 0 % (0-3); EOSINOPHILS % (AUTO) 0 % (0-5); Mean Corpuscular Volume 88.9 fL (81-100)
[2016-09-12 15:38] LABS: Mean Corpuscular Hemoglobin 27.4 pg (27.0-35.0); Platelet Count 101 bil/L (150-400)
[2016-09-12 15:57] LABS: MONOCYTES % (AUTO) 9 % (4-12); NEUTROPHILS % (AUTO) 77 % (40-74)
--- NOTE | 2016-09-12 16:17 | NUR ---
Social Work-initial assessment: Data & Assessment: See initial assessment. EMR review. Pt is a 65 y/o male who was admitted on 09/11/16 for Resp. failure per H&P. Pt's insurance is [id number] and PCP is at [facility]. Patient is 60 % service connected per his friend Jesus Dumont. Pt does not have a readmission score. Patient is vented. SW spoke with patient's NOK, Jesus Dumont, , to discuss discharge planning, SW role explained and initial assessment complete. Pt resides at home with friend in a single level home with four steps to enter where pt remained independent with basic ADLs prior to admission. Pt uses a cane at baseline and does drive. Pt has no HH or SNF history. Pt's NOK states that patient completed DPOA/ advanced directive and DPOA is Taylor [place] [phone]. Pt has no [facility] care benefits. Pt's friend has been assisting him at home. SW provided phone number and plan on white board in room. SW will continue to follow ad assist patient with discharge planning needs. Plan: Pt's family is supportive. SW will continue to follow and assist patient with discharge planning needs. Mayela Maddox LMSW, ALIVIA Addendum: 09/12/16 at 1628 by MAYELA MADDOX Amended: Links added.
[2016-09-12] MEDS ORDERED: CLOT21CR7 TOPICAL (18:04)
[2016-09-12] MEDS ORDERED: AMIO200T PO (18:04)
[2016-09-12] MEDS ORDERED: ALBU90AE IH (18:04)
[2016-09-12] MEDS ORDERED: EPIN0.3P2 IJ (18:05)
[2016-09-12] MEDS ORDERED: FURO40TA4 PO (18:05)
[2016-09-12] MEDS ORDERED: GUAI600T86 PO (18:06)
[2016-09-12] MEDS ORDERED: MELA3TAB35 PO (18:08)
[2016-09-12] MEDS ORDERED: METO-272 PO (18:08)
[2016-09-12] MEDS ORDERED: OMEP20TA86 PO (18:09)
[2016-09-12] MEDS ORDERED: POLY17PO6 PO (18:09)
[2016-09-12] MEDS ORDERED: PRAV40TA PO (18:09)
[2016-09-12] MEDS ORDERED: PRAZ1CAP2 PO (18:10)
[2016-09-12] MEDS ORDERED: SERT50TA9 PO (18:10)
[2016-09-12] MEDS ORDERED: SPIR25TA3 PO (18:11)
[2016-09-12] MEDS ORDERED: ZOLP5TAB6 PO (18:12)
--- NOTE | 2016-09-12 18:34 | PCM.PNMED ---
Subjective Date of Service Sep 12, 2016 Subjective overnight: Patient admitted to CCU overnight due to pressor requirements including norepinephrine with additional inotropic support with dobutamine. Patient initially acidotic prior to intubation and bicarbonate drip with subsequent development of metabolic and respiratory alkalosis. Bicarbonate drip was stopped and vent settings adjusted with decreased tidal volume and decrease ventilatory rate to increase CO2 retention. Today: Patient seen in the a.m. able to respond appropriately wall intubated following all commands. Patient indicates some right sided abdominal complaints on palpation. General Surgery and interventional radiology were consulted to discuss the possibility of acalculous cholecystitis. It was determined that given the patient's recent hospitalization for cardiac complaints including acute CHF exacerbation that the elevated liver enzymes were likely more secondary to a shock liver. The patient's caregiver was contacted and stated that the patient has had several days of abdominal complaints with anorexia only able to ingest fruit. The caregiver also mentions that he has had significant weakness and shortness of breath since his last hospitalization for acute CHF exacerbation. The [facility] from [place] has recently called the most significant amount of diuretics to help get excess fluid expelled. Exam Vital Signs Vital Sign - Last Date Time Temp Pulse Resp B/P Pulse Ox O2 Delivery O2 Flow Rate FiO2 09/12/16 06:21 66 106/71 99 40 09/12/16 00:35 Ventilator 09/12/16 00:00 36.5 22 Intake and Output 09/11/16 09/11/16 09/12/16 Cumulative From/Thru 15:00 23:00 07:00 09/11/16 19:50 - 09/12/16 00:00 Intake Total 1500 ml 1500 ml Balance 1500 ml 1500 ml Intake IV Total 1500 ml 1500 ml Exam General: Moderately obese male appearing stated age intubated and sedated Eyes: PERRLA, Scleral Anicteric, noninjected conjunctiva HENT: Normocephalic atraumatic, intubated with ET tube, external ears without defect, nares without drainage Neck: Supple, no Thyromegaly, trachea central. right IJ in place Cardiovascular: Normal S1, Normal S2, No Murmurs/Rubs/Gallops, Regular Rate/ Rhythm Chest & Lungs: Mild coarse breath sounds noted in the right axillary base Abdomen: Soft, tenderness RUQ more flank than subchondral, negative Crespo's, normal active bowel tones, nondistended Musculoskeletal: Unremarkable. no swollen or erythematous joints Extremities: 0-1+ pedal edema, no cyanosis, no clubbing. Left radial line in place, pulses intact at radial and dorsalis pedis bilaterally Skin: Warm and dry no rashes, ecchymosis Neurological: Patient is able to follow some commands even though intubated and mildly sedated, able to move all extremities spontaneously Lymphatic: Lymph nodes Cervical and Axillary not palpable. Psych: unable to assess : Gonzalez in place IVs and Medications Medications Reviewed: Medications were reviewed in detail Lab and Diagnostics Result Diagram: 09/12/165 09/12/16234 X-Rays, CTs and MRIs X-RAY CHEST ONE VIEW, PORTABLE IMPRESSION: Cardiomegaly with increased pulmonary vascularity suggestive of edema. In addition, there is increased retrocardiac opacity which could be represent a focal edema, atelectasis or potentially developing pneumonia. Dictated by: Leeanna Kruse M.D. on 09/11/2016 at 20:22 Approved by: Leeanna Kruse M.D. on 09/11/2016 at 20:23 CT ABDOMEN AND PELVIS WITHOUT CONTRAST IMPRESSION: 1. Constellation of findings suspicious for acalculous cholecystitis. 2. Moderate cardiomegaly, as well as trace basal right pleural effusion. 3. Mild sigmoid colon diverticulosis. 4. Small bilateral fat containing inguinal hernias. No significant discrepancy with [facility]. Dictated by: Gadiel Will M.D. on 09/12/2016 at 8:50 Approved by: Gadiel Will M.D. on 09/12/2016 at 8:59 CT BRAIN WITHOUT CONTRAST IMPRESSION: No acute intracranial abnormalities. Dictated by: Gadiel Will M.D. on 09/12/2016 at 7:40 Approved by: Gadiel Will M.D. on 09/12/2016 at 7:42 US ABDOMEN IMPRESSION: 1. Diffuse gallbladder wall thickening would be worrisome for acalculous cholecystitis in the appropriate clinical setting. Other differential diagnoses may include sequelae of acute hepatitis, congestive heart failure, underlying chronic liver disease, hypoproteinemia, or pancreatitis. 2. Splenic remote granulomatous disease. Dictated by: Gadiel Will M.D. on 09/12/2016 at 6:58 Approved by: Gadiel Will M.D. on 09/12/2016 at 7:07 Cardiac Echo Impressions Echocardiogram Report Interpretation Summary 1. Markedly dilated left ventricle with upper limits of normal wall thickness and globally reduced systolic function with an estimated EF of 25 to 30% 2. Mildly dilated right ventricle with low normal systolic function. 3. Severe mitral regurgitation into a dilated left atrium There is no old study for comparison Reading Physician:03:08 PM Additional Diagnostics US VENOUS LEG DUPLEX BILATERAL IMPRESSION: No sonographic evidence for lower extremity deep venous thrombosis. Dictated by: Gadiel Will M.D. on 09/12/2016 at 10:11 Approved by: Gadiel Will M.D. on 09/12/2016 at 10:13 Assessment & Plan 65yoM with past medical history of COPD, CAD, LBBB, HFrEF (30-35%), VT s/p AICD placement, severe mitral regurgitation, noted severe bradycardia into the 30s, with recent admission to [place] for acute CHF exacerbation admitted following episode of respiratory distress while at home. Hospital day 1 1. Acute Hypoxic hypercapnic respiratory failure, present on admission, stable -respiratory failure prior to presentation at [facility] with intubation in the field by EMS -ABG on presentation showed a pH 7.14, CO2 50, O2 100, calculated bicarbonate 17 -Subsequent ABG shows pH of 7.47, CO2 25, O2 82, calculated bicarbonate of 19 -Ventilator settings were adjusted in the a.m. for increased CO2 retention due to alkalosis with ventilator rate changed from 16 to 12 and tidal volume changed from 600 to 500 -Pulmonary consulted for ventilator management patient currently managed with propofol and fentanyl drips 2. Shock, present on admission, stable -Likely is septic given white cell count at admission was 16,000 which dramatically worsened over hours to 41,000 and then improved with antibiotics to 27,000 with antibiotics -Differential diagnosis includes cardiogenic shock given a known diagnosis of systolic congestive heart failure with likely sick sinus syndrome severe bradycardia -Patient initially required pressor support with norepinephrine and inotropic support with dobutamine, the patient has been able to be titrated off norepinephrine support and titrated down on dobutamine -Blood pressure monitoring has been significantly lower than the blood pressure monitored through the arterial line -Limit IV fluids given discussed below in #4 due to significant systolic congestive heart failure with goal MAP >65 -Echocardiogram shows mildly reduced ejection fraction compared to [place] records with EF of 20-25% 3. Severe sepsis, present on admission, acute -Patient does not meet SIRS criteria however significant leukocytosis described above in #2 as well as severe lactic acidosis is consistent with infection -likely septic shock described above secondary to acalculous cholecystitis less likely UTI, SBP, PNA (HCAP), no new diarrhea consistent with C. difficile -CT concerning for acalculous cholecystitis with significantly thickened gallbladder wall but no distention -Continue meropenem IV and doxycycline IV for likely cholecystitis -surgery consulted in ED, we appreciate surgery's recommendations -Interventional radiology consulted for possible percutaneous drain, not likely a candidate given significant elevation in INR without gallbladder distention 4. Acute on chronic systolic heart failure (HFrEF), present on admission -Records from [facility] show recent echo results with EF 30-35% -optimization of medications at discharge from [place] 08/11/2016 -Echo ordered today shows EF of 20-25% -IV fluids continued at approximately 80 mL/h through combined multiple drips for medication but limited given mild signs of hypervolemia -as per documentation patient takes lasix 120mg BID, increased metoprolol succinate dose 50mg BID, spironolactone 25mg daily, losartan increased to 50 milligrams twice a day 5. Acute exacerbation of chronic obstructive pulmonary disease, reservoir admission -Patient intubated in field however presentation in [facility] concerning for COPD exacerbation -cont albuterol q2PRN, albuterol ipratropium q4HR scheduled -125 methylpred q6hr x3. 6. Anion gap Metabolic acidosis, acute, present on admission -secondary to lactic acid and renal failure -1amp bicarb given, bicarb gtt started by admitting team and discontinued within hours - Fluids urine as described above in CHF -repeat ABG prn 7. Acute renal failure, present on admission -Likely multifactorial with dehydration versus perceived prerenal given low cardiac output -avoid nephrotoxic medications, hold ARB -nephrology consult in am, AM team to contact 8 Hepatic failure, acute, present on admission -Elevated transaminitis, PT/INR, alkaline phosphatase and elevated bilirubin with elevated direct bilirubin consistent with hepatocellular injury more than biliary obstruction -Differential diagnosis includes shock liver from hypoperfusion versus possible toxic acalculous cholecystitis, distant history of ETOH use, history of mild elevation [facility] -Surgery and IR consulted for possible cholecystectomy none surgical candidate at this time 9 Right upper quadrant Abdominal pain, acute, present on admission -patient able to confirm RUQ pain, tenderness on PE -Patient Admitting Clerk phoned on September 12 noted recent complaints of ongoing abdominal pain with anorexia only able to eat fruit -labs suggest possible biliary obstruction more likely hepatocellular injury -Imaging is consistent with thickened gallbladder wall of acalculous cholecystitis on both CT and abdominal ultrasound -Surgery and IR consultation and patient is not a surgical candidate at this time 10. Elevated troponin of unknown significance, acute, present on admission -mildly elevated and trended down in the setting of renal failure however patient does have a history of CAD, CHF, Sick Sinus Syndrome and AICD placement -cardiology was consulted and EKG reviewed prior to admission -Continue to monitor and treatment as above 12 Hyperkalemia, acute, present on admission -secondary to renal failure -calcium gluconate, Kayexalate, and albuterol given -D10 drip and insulin drip started, D10 converted to D5 normal saline given mild hyponatremia -monitor closely 13 Hematuria, unknown chronicity, present on admission -continue to monitor -no nephrolithiasis seen on CT 14 possible disseminated intravascular coagulopathy, acute, present on admission -likely secondary to severe sepsis -Elevated d-dimer increased on subsequent draws with negative ultrasound for DVT however pulmonary embolus has not been ruled out, CT PE not possible given acute kidney injury -Elevated INR consistent with liver failure, no records of chronic anticoagulation from [place] -Fibrinogen and PTT normal -Haptoglobin pending -Peripheral smear shows some schistocytes however not a significant number -Fresh frozen plasma considered and not given 15 Elevated glucose, acute, present on admission -Reported history of diabetes -most recent hgba1c 5.7 as per paper record, unclear when this was complete -repeat hgb A1c pending 16 history of severe bradycardia, unknown chronicity, present on admission -Patient's caregiver notes history of severe bradycardia down into the 30s [facility] -Records indicate that the patient was considered for a possible pacemaker to replace his AICD -Likely sick sinus syndrome -Avoid beta blockers Bowel regimen available when necessary The patient will likely remain inpatient for several more days given the current list of diagnoses and the likely complications possible. Case was discussed with Dr. Gordon (Gen Surg) and Dr. Rivera (CCU) extensively today. Pain Evaluation: Adequate Pain Control GI Prophylaxis: H2 kaleigh VTE Prophylaxis: Sub-Q Heparin (Unfractionated) Resuscitation Status: CPR: Attempt Resuscitation Time spent 40 minutes Attending Statement The patient was seen and examined together with Dr. Castano on 09/12/16 and I have added additional information to the note above. Thomas Grigsby DO Sep 12, 2016 07:07 Dione Soto DO Sep 13, 2016 15:47
--- NOTE | 2016-09-12 18:55 | PCM.PROC ---
Procedure Note Date of Service: Sep 12, 2016 Pre Procedure Diagnosis: Severe Hypotension/Shock requiring pressor support Post Procedure Diagnosis: Severe Hypotension/Shock requiring pressor support Procedure: left radial arterial line placement Provider and Barrel Stave Inspector: Thomas Rivera M.D. Indication for Procedure: Blood pressure monitoring in a critically ill patient requiring pressor and ionotropic support Procedural Analgesia: none Procedure Details: The Randall test was performed to ensure adequate perfusion to the hand through the ulnar artery. The patients left wrist was prepped with chlorhexidine and draped in sterile fashion. A one piece [employer] 20G arterial line with was introduced into the radial artery under sterile ultrasound guidance monitoring for bright arterial blood flash. The wire was threaded into the lumen of the artery and catheter was threaded over the guide wire and the needle was removed with appropriate pulsatile blood return. The catheter was then secured in place to the skin with a sterile Tegaderm dressing applied by the certified medical technician. Perfusion to the extremity distal to the point of catheter insertion was checked and found to be adequate. Dr. Rivera was present for the entire procedure. Estimated Blood Loss: 10mL The patient tolerated the procedure well and there were no complications. Post Procedure Plan: Titrate off pressure support as blood pressure allows Attending Statement Procedure: Left radial arterial catheter placement under ultrasound guidance Indication: Hypotension I was present for and supervised the entire procedure. Date of service: 09/12/16 Dian Rivera M.D. Pulmonary and Critical Care medicine Pager [phone] Thomas Grigsby DO Sep 12, 2016 18:55 Dian Rivera MD Sep 16, 2016 17:48
[2016-09-13] VITALS (14 sets, daily range): BP systolic 94–135; BP diastolic 46–75; PULSE 66–85; RESP 14–21; O2SAT 95–99
[2016-09-13] MEDS: DOBUTamine 500 mg/250 D5W 500,000 MCG in IV Premix 1 EACH IV SCH (02:32)
[2016-09-13 03:57] LABS: EOSINOPHILS % (AUTO) 0 % (0-5); Platelet Count 100 bil/L (150-400)
[2016-09-13] MEDS: Chlorhexidine 0.12% 15 mL Oral Solution MT SCH ×6 (03:58→23:55)
[2016-09-13 03:59] LABS: Mean Corpuscular Hemoglobin 27.7 pg (27.0-35.0); Mean Corpuscular Volume 87.2 fL (81-100)
[2016-09-13 04:14] LABS: INR 1.8 ratio
[2016-09-13 04:18] LABS: BASOPHILS % (AUTO) 0 % (0-3); MONOCYTES % (AUTO) 8 % (4-12); NEUTROPHILS % (AUTO) 81 % (40-74)
--- NOTE | 2016-09-13 04:43 | ABG ---
DateTimeAnalyzed 04:38:29 -_ pH ____7.494 - pCO2 ___33.1__ -mmHg pO2 112 -mmHg HCO3- ___25.4__ -mmol/L ABE ____2.1__ -mmol/L tHb ___10.7__ -g/dL O2Hb ___97.8__ -% COHb ____1.8__ -% MetHb ___-0.5__ -% sO2 ___99.1__ -% FIO2 ___40.0__ -% PRVC 510 - PEEP ____5.0__ -cmH2O Set_RR 14 -b/min Vt __549.0__ -L Drawn By RB - Date/Time Notified____ 04:43:00 -_ Spontaneous_RR 20 -b/min Oxygen Device 1 VENTILATOR - Notified By RB - Notified Whom andrzej s, rn - B 763 -mmHg K+ ____3.5__ -mmol/L tO2 ___14.9__ -Vol% Randall test N/A -
[2016-09-13] MEDS ORDERED: Vancomycin Serum Trough XX ONE (05:00)
[2016-09-13 05:02] LABS: Magnesium 2.2 mg/dL (1.6-2.6); Phosphorus 4.4 mg/dL (2.5-4.9)
[2016-09-13 06:08] LABS: Hepatitis A Antibody IgM Negative (Negative); Hepatitis B Core Antibody IgM Negative (Negative)
[2016-09-13] MEDS: Propofol Inj 1,000,000 MCG in IV Premix 1 EACH IV SCH (06:24)
--- NOTE | 2016-09-13 06:28 | NUR ---
Sedation / mentation Patient calm and oriented, able to write questions for the nurse, answer yes or no questions with nodding, and follow directions appropriately. He is able to turn himself independently requiring only assistance with the pillow positioning. Around 0400 patient expressed discomfort of the tube through using hand motions but denies pain. Offered to increase his sedation and he nodded. RASS -2 following this increase. Patient continues to wake easily and move independently.
[2016-09-13] MEDS: Albuterol-Ipratropium 3 mL Inhalation Solution NEB SCH ×4 (07:40→20:24)
--- NOTE | 2016-09-13 07:46 | DRSVH ---
PROCEDURE: X-RAY CHEST ONE VIEW, PORTABLE ([id number]) INDICATIONS: acute respiratory failure TECHNIQUE: One view of the chest was acquired. COMPARISON: None. FINDINGS: Surgical changes and devices: Tubes and catheters are in stable and expected positions. Left-sided pa cer is present. Lungs and pleura: No pleural effusions or pneumothorax. No change in left greater than right basilar airspace opacity. Mediastinum: Mediastinal contours appear normal. Heart size is normal. Bones and chest wall: No suspicious bony lesions. Overlying soft tissues appear unremarkable. IMPRESSION: No change in bibasilar pneumonia. Dictated by: Austin Schmitz M.D. on 09/13/2016 at 7:44 Approved by: Austin Schmitz M.D. on 09/13/2016 at 7:44
[2016-09-13] MEDS: Vancomycin Dose per Pharmacist XX SCH (08:41)
[2016-09-13] MEDS: Famotidine Inj 20 MG in IV Premix 1 EACH IV SCH (08:51)
[2016-09-13] MEDS: Heparin 5,000 Unit/mL Inj SUBQ SCH ×3 (08:52→23:53)
[2016-09-13] MEDS: Doxycycline Inj 100 MG in Dextrose 5% Minibag Plus 100 ML IV SCH ×2 (08:52→19:37)
--- NOTE | 2016-09-13 09:30 | PCM.PNMED ---
Subjective Date of Service Sep 13, 2016 Subjective Patient intubated and mildly sedated. Able to obtain some ROS - patient denies generalized pain, he nods that he is comfortable. He denies fever, chills. He is not nauseated and has no abdominal pain. He would prefer to be extubated but is tolerating the tube ok. Overnight, patient follows commands and is helpful with his care. He was able to write sentences to answer nursing questions. Exam Vital Signs Vital Sign - Last Date Time Temp Pulse Resp B/P Pulse Ox O2 Delivery O2 Flow Rate FiO2 09/13/16 07:41 72 100/55 97 40 09/13/16 04:00 Ventilator 09/13/16 03:56 35.8 14 Intake and Output 09/12/16 09/12/16 09/13/16 Cumulative From/Thru 15:00 23:00 07:00 09/11/16 19:50 - 09/13/16 06:21 Intake Total 1063 ml 1182 ml 3745 ml Output Total 1200 ml 1200 ml Balance -137 ml 1182 ml 2545 ml Intake Oral 0 ml 0 ml IV Total 1063 ml 1182 ml 3745 ml Output Urine Total 1200 ml 1200 ml Exam General: Moderately obese male appearing stated age intubated and sedated in ICU bed. Eyes: PERRLA, EOMI, Scleral Anicteric, noninjected conjunctiva HENT: Normocephalic atraumatic, intubated with ET tube, external ears without defect, nares without drainage. No oral thrush noted. Neck: Supple, no Thyromegaly, trachea central, right IJ in place, no JVD noted. Cardiovascular: Normal S1, Normal S2, No Murmurs/Rubs/Gallops, Regular Rate/ Rhythm Chest & Lungs: Expiratory wheezes noted in the lower lung garner, otherwise CTAB anteriorly Abdomen: Soft, non-tender, normal active bowel tones, nondistended Musculoskeletal: Unremarkable. no swollen or erythematous joints Extremities: Moderate pitting edema up to the knee bilaterally, no cyanosis, no clubbing. Left radial line in place. Pulses intact at radial and dorsalis pedis bilaterally Skin: Warm and dry no rashes, ecchymosis noted on the lower extremities Neurological: Patient is able to follow commands, able to move all extremities spontaneously Psych: appropriate mood and affect : Gonzalez in place Vent settings: FiO2 .40, PEEP 5, Rate 14, TV 500 IVs and Medications Medications Reviewed: Medications were reviewed in detail Lab and Diagnostics Result Diagram: 09/13/16 0350 09/13/16 0350 X-Rays, CTs and MRIs X-RAY CHEST ONE VIEW, PORTABLE IMPRESSION: Cardiomegaly with increased pulmonary vascularity suggestive of edema. In addition, there is increased retrocardiac opacity which could be represent a focal edema, atelectasis or potentially developing pneumonia. Dictated by: Leeanna Krsue M.D. on 09/11/2016 at 20:22 Approved by: Leeanna Kruse M.D. on 09/11/2016 at 20:23 CT ABDOMEN AND PELVIS WITHOUT CONTRAST IMPRESSION: 1. Constellation of findings suspicious for acalculous cholecystitis. 2. Moderate cardiomegaly, as well as trace basal right pleural effusion. 3. Mild sigmoid colon diverticulosis. 4. Small bilateral fat containing inguinal hernias. No significant discrepancy with preliminary [employer] report. Dictated by: Gadiel Will M.D. on 09/12/2016 at 8:50 Approved by: Gadiel Will M.D. on 09/12/2016 at 8:59 CT BRAIN WITHOUT CONTRAST IMPRESSION: No acute intracranial abnormalities. Dictated by: Gadiel Will M.D. on 09/12/2016 at 7:40 Approved by: Gadiel Will M.D. on 09/12/2016 at 7:42 US ABDOMEN IMPRESSION: 1. Diffuse gallbladder wall thickening would be worrisome for acalculous cholecystitis in the appropriate clinical setting. Other differential diagnoses may include sequelae of acute hepatitis, congestive heart failure, underlying chronic liver disease, hypoproteinemia, or pancreatitis. 2. Splenic remote granulomatous disease. Dictated by: Gadiel Will M.D. on 09/12/2016 at 6:58 Approved by: Gadiel Will M.D. on 09/12/2016 at 7:07 Cardiac Echo Impressions Echocardiogram Report Interpretation Summary 1. Markedly dilated left ventricle with upper limits of normal wall thickness and globally reduced systolic function with an estimated EF of 25 to 30% 2. Mildly dilated right ventricle with low normal systolic function. 3. Severe mitral regurgitation into a dilated left atrium There is no old study for comparison Reading Physician:03:08 PM Additional Diagnostics US VENOUS LEG DUPLEX BILATERAL IMPRESSION: No sonographic evidence for lower extremity deep venous thrombosis. Dictated by: Gadiel Will M.D. on 09/12/2016 at 10:11 Approved by: Gadiel Will M.D. on 09/12/2016 at 10:13 Assessment & Plan 65yoM with past medical history of COPD, CAD, LBBB, HFrEF (30-35%), VT s/p AICD placement, severe mitral regurgitation, noted severe bradycardia into the 30s, with recent admission to [facility] for acute CHF exacerbation admitted following episode of respiratory distress while at home. Hospital day 2. 1. Acute hypoxic hypercapnic respiratory failure, present on admission, improving. - Respiratory failure prior to presentation at [facility] with intubation in the field by EMS on 09/11/16. - Continue mechanical ventilation at this time. Pressure support trials as tolerated by the patient. - Propofol for sedation. Minimize dosing as tolerated. Sedation vacation as tolerated. - ABG each AM and as needed for vent management. - Pulmonary consulted for ventilator management and we appreciate their expertise. 2. Shock, acute, present on admission, improving. - Likely is septic given leukocytosis. Differential diagnosis includes cardiogenic shock given a known diagnosis of systolic congestive heart failure with likely sick sinus syndrome severe bradycardia. - Patient initially required pressor support with norepinephrine and inotropic support with dobutamine, the patient has been able to be titrated off norepinephrine. Continue dobutamine and titrate as tolerated. - Limit IV fluids given discussed below in #4 due to significant systolic congestive heart failure with goal MAP >65. - Continue Cheetah monitoring at this time and arterial line pressure monitoring. 3. Severe sepsis, acute, present on admission, ongoing. - Criteria met: leukocytosis (16.5 and rising), low temp (36 and below) as well as severe lactic acidosis (8.9). Presumed GI source. - CT concerning for acalculous cholecystitis with significantly thickened gallbladder wall but no distention. - Continue meropenem IV and doxycycline IV for likely cholecystitis (day 2). - Surgery consulted in ED and we appreciate their recommendations. - Interventional radiology consulted for possible percutaneous drain, not likely a candidate given significant elevation in INR without gallbladder distention. 4. Acute on chronic systolic heart failure, present on admission, ongoing. - Records from [facility] show recent echo results with EF 30-35%. Echo from 09/12/16 shows EF of 20-25%. - Optimization of medications at discharge from ID 08/11/2016 - At this time will minimize IV fluids as much as possible. - Holding home furosemide 120 mg BID, metoprolol succinate 50 mg BID, spironolactone 25 mg daily, and losartan 50 mg BID as patient has been hypotensive. May slowly consider adding one med back at a time. May start with Lasix today. 5. Acute exacerbation of chronic obstructive pulmonary disease, present on admission, improving. - Patient intubated in field however presentation in [facility] concerning for COPD exacerbation. - Continue albuterol q2PRN, DuoNeb QID scheduled. - Patient completed short course of Solu-medrol 125 mg IV. 6. Anion gap Metabolic acidosis, acute, present on admission, improving. - Secondary to lactic acid and KARELY. - Lactic acidosis resolved with KARELY improving. - Continue to monitor BMP, ABG. 7. Acute renal failure, present on admission, improving. - Likely multifactorial with dehydration versus perceived prerenal given low cardiac output. - Avoid nephrotoxic medications, hold ARB. - Continue to monitor BMP. 8. Hepatic failure, acute, present on admission, improving. - Elevated transaminases, PT/INR, alkaline phosphatase and elevated bilirubin with elevated direct bilirubin consistent with hepatocellular injury more than biliary obstruction. - Differential diagnosis includes shock liver from hypoperfusion versus possible toxic acalculous cholecystitis, distant history of ETOH use, history of mild elevation in transaminases noted in [facility] records - Surgery and IR consulted for possible cholecystectomy - not surgical candidate at this time. - Continue to monitor CMP, PT/INR. 9. Right upper quadrant abdominal pain, acute, present on admission,improving. - Taxation Inspector phoned on September 12 noted recent complaints of ongoing abdominal pain with anorexia. Labs suggest possible biliary obstruction more likely hepatocellular injury. - Imaging is consistent with thickened gallbladder wall of acalculous cholecystitis on both CT and abdominal ultrasound - Surgery and IR consultation and patient is not a surgical candidate at this time. - Continue to monitor closely. 10. Elevated troponin of unknown significance, acute, present on admission, improving. - Mildly elevated and trended down in the setting of renal failure however patient does have a history of CAD, CHF, Sick Sinus Syndrome and AICD placement. - Continue to monitor and treat other conditions as above. 11. Hyperkalemia, acute, present on admission, improved. - Secondary to renal failure. - Treated with Kayexalate, calcium gluconate, bicarb, insulin/D10. - Hold spironolactone at this time. - Continue to monitor BMP. 12. Hematuria, unknown chronicity, present on admission. - Etiology unknown with no nephrolithiasis seen on imaging. Some evidence of possible UTI. - Gonzalez catheter currently in place - continue to monitor. 13. Possible disseminated intravascular coagulopathy, acute, present on admission - Likely secondary to severe sepsis. - Elevated d-dimer increased on subsequent draws with negative ultrasound for DVT however pulmonary embolus has not been ruled out, CT PE not possible given acute kidney injury. - Elevated INR consistent with liver failure, no records of chronic anticoagulation from [facility]. - Haptoglobin pending. 14. Hyperglycemia, acute, present on admission, improving. - A1c 6.3. - Continue insulin drip per non-DKA protocol. 15. History of severe bradycardia, chronic, present on admission. - Likely sick sinus syndrome. Records indicate that the patient was considered for a possible pacemaker to replace his AICD. - Will avoid beta blockers at this time. - Continue telemetry. - Antiemetic available PRN. - Antacid available PRN. - Bowel regimen available PRN. Disposition: The patient will likely remain inpatient for several more days given the current list of diagnoses and the likely complications possible. GI Prophylaxis: H2 kaleigh VTE Prophylaxis: Sub-Q Heparin (Unfractionated) Resuscitation Status: CPR: Attempt Resuscitation Time spent 35 minutes Attending Statement The patient was seen and examined together with Dr. Jaramillo on 09/13/16 and I agree with the history, exam and plan as outlined in the note above. Madiha Jaramillo DO Sep 13, 2016 08:46 Dione Soto DO Sep 13, 2016 15:41
[2016-09-13] MEDS ORDERED: Sodium Chloride LOK Flush 10 mL Syringe IVFLUSH PRN ×2 (09:45)
[2016-09-13] MEDS ORDERED: Furosemide 10 mg/mL 2 mL Inj IVPUSH ONE (10:55)
[2016-09-13] MEDS: Dextrose 5% 0.9% NaCl 1,000 ML IV SCH (11:02)
[2016-09-13] MEDS: Meropenem Inj 1,000 MG in IV Premix 1 EACH IV SCH (12:07)
--- NOTE | 2016-09-13 14:10 | PROG NOTE ---
[address] [address] PROGRESS NOTE PATIENT: LUIS LEON : 1950 MR#: [id number] ADMIT: 09/11/2016 JOB ID: [id number] DATE: 09/13/2016 PULMONARY CRITICAL CARE PROGRESS NOTE: The patient is a 65-year-old man with history of ischemic cardiomyopathy, severe mitral regurgitation, admitted with shock--? septic versus cardiogenic and acute respiratory failure requiring mechanical ventilation. INTERVAL HISTORY: He is doing fine from a hemodynamic standpoint, although he remains on dobutamine. He is making urine and doing well on a pressure support trial this morning. No fevers. REVIEW OF SYSTEMS: Unable to obtain since patient is intubated. PHYSICAL EXAMINATION: Vital signs reviewed. T-max of 36.7, pulse 85, respirations 14, BP 110/55, sats 98% on 40% FiO2. General: Intubated, on propofol, but opens eyes and tries to follow commands. Chest: Clear to auscultation. Abdomen slightly distended but nontender to deep palpation. Extremities: He does have diffuse anasarca. LABORATORIES: Reviewed and WBC is down from 41 yesterday to 28 this morning. Hemoglobin is stable. Platelets are on the low side, 100. Chemistry reviewed. Electrolytes are okay except for potassium slightly high at 5. Creatinine is down significantly from 2.6 at peak yesterday to 1.74 today. Lactate is also down significantly, 2, from 8.9 on admission. AST and ALT are trending in the right direction from over 6000 yesterday to the 3000 range today. Alk phos and bili are also slightly elevated. BNP on admission was 11,000 and is now down to 2000. Procalcitonin is up slightly from 0.18 to 0.95. Coags are also improving. INR is 1.8 from 2.2 yesterday. Cultures: No growth to date on blood, urine, sputum, and respiratory viral PCR is negative as well. Chest x-ray today shows a worsening infiltrate at the left base compared to yesterday. This could be effusion or consolidation. ASSESSMENT AND RECOMMENDATIONS: 1. Shock--septic versus cardiogenic. 2. Acute hypoxic respiratory failure on mechanical ventilation since September 11. 3. Acute kidney injury--improving. 4. Shock liver--improving. 5. Coagulopathy--due to shock liver plus DIC. 6. Severe lactic acidosis--improving. 7. Ischemic cardiomyopathy with known EF around 25% and severe mitral regurg. 8. Suspected acalculous cholecystitis ? A 65-year-old man with known ischemic cardiomyopathy. Not previously seen at [facility] but recently admitted at [facility] in [place] in July for decompensated heart failure. He presented to our emergency department with shortness of breath, severe hypotension, and was intubated, started on pressors, but quickly weaned off of the norepinephrine over a matter of hours overnight. He had a high white count though, as high as 41,000, and the only potential source identified on abdominal CT, albeit noncontrast, was a gallbladder which had wall thickening that could be acalculous cholecystitis. Since he was doing so well yesterday, off all pressors, and only on low-dose dobutamine, we decided to hold off and continue antibiotics and watch him. Echo showed that his heart function seemed to be stable compared to prior records from [facility] with no acute event. Lower extremity duplex showed no evidence of DVT and right ventricle on echo did not look significantly under strain. All of this made PE less likely as well and we were reluctant to anticoagulate this gentleman with severe coagulopathy without a stronger indication. Our working theory is still septic shock but source is not yet clearly defined. I spoke with Dr. Buckley today who kindly agreed to see him and is considering recommending a HIDA scan, which Dr. Gordon from General Surgery also brought up yesterday. In the meantime, he is on meropenem, doxycycline. He got one dose of vanc on admission but his MRSA nasal swab is negative so we could stop this. He is on dobutamine still at 6 mcg but we are going to wean this off and he is tolerating this well so far. I am also going to give him one dose of Lasix IV because he is doing so well on a spontaneous breathing trial that I think we can extubate him. If he has any difficulty we should try BiPAP. Critical care time [address] Guadarrama takes over the pulmonary service tomorrow.
[2016-09-13] MEDS ORDERED: Insulin Human REGular 300 Unit/3 mL Inj SUBQ SCH (14:30)
--- NOTE | 2016-09-13 15:24 | NUR ---
P: Respiratory Distress I: Pt extubated at 1130 with good sats on 3L/NC. Speech evaluation done and pt taking regular diet and thin fluids without difficulty. NS TKO with meds. RIJ TLC with one port that does not flush well, otherwise patent. Gonzalez patent with good urine output after 20mg Lasix IV given. Left arterial line left in for BP. Cheetah dc'd. Alert and oriented and uses call light appropriately. E: Stable. S: Frequent rounding.
--- NOTE | 2016-09-13 15:54 | CONS ---
[address] [address] CONSULTATION REPORT PATIENT: LUIS LEON : 1950 MR#: [id number] ADMIT: 09/11/2016 JOB ID: [id number] DATE OF SERVICE: 09/13/2016 REASON FOR CONSULT: Septic shock. HISTORY OF PRESENT ILLNESS: The patient is a 65-year-old gentleman with an extensive past medical history including severe organic heart disease, as well as some COPD, recurrent pneumonias, and diabetes. He was admitted in May to [facility] apparently with pneumonia, as well as in July to [facility] with CHF exacerbation and possible COPD-related issues. He was then back at home and seemed to be doing reasonably okay, though he has chronic shortness of breath and limited exercise capacity due to his underlying heart and lung disease. It is unclear exactly what precipitated his admission through the emergency department late on the , but apparently, his caregiver and others found him increasingly weak and short of breath. He was found to be profoundly tachypneic and hypotensive, and in the ER, was noted to be in respiratory failure requiring intubation, as well as ongoing renal failure with severe hepatic injury, profound leukocytosis, and severe lactic acidosis. He was critically ill upon admission in the freight sorter hours, right around midnight, September 11September 12. Initially it was felt he likely had septic shock of unknown source superimposed upon his underlying heart and lung disease and he was aggressively treated with broad-spectrum antibiotics including azithromycin, ertapenem and a single dose of vancomycin. He has had a rapid improvement over the past 36 hours, which is really quite surprising in that he is now being rapidly weaned, though he remains on the ventilator, and his hypotension has completely vanished, and this morning, the last of pressor agents were successfully stopped without any untoward effect. I reviewed extensive notes from the [facility] and discussed this case in person with Dr. Rivera on the hogan this morning, as well as respiratory therapy and nursing. The patient is awake enough, though he is still intubated, to actually obtain some yes and no question history. The patient tells me that in the couple days leading up to his admission back on Wednesday, he was not having any headache, visual change or sore throat. He also states that he did not have any cough that he can recall nor did he have any fever or chills before he came in. He specifically denies having any abdominal pain whatsoever and also denies nausea, vomiting, or diarrhea prior to admission. Somewhat surprisingly, he tells me he was having severe dysuria prior to admission, though this has not figured much in the differential diagnosis since admission, perhaps because he had a negative urine culture. He says this morning he is feeling much improved and would like to be extubated. Beyond that, I cannot get too much history as we are just asking yes and no questions. PAST MEDICAL HISTORY: 1. COPD. 2. Organic heart disease. a. Coronary artery disease. b. Left bundle branch block. c. Congestive heart failure with ejection fraction about 25%. d. AICD placed and occasionally fires. e. Severe mitral regurgitation on the basis of dilated cardiomyopathy. 3. History of recent pneumonia in May. 4. PTSD. 5. Prostate cancer. 6. Diabetes mellitus. 7. Peripheral neuropathy and it is unknown to me, based on chart review, whether this is due to diabetes or something else. 8. Hypertension. 9. Hyperlipidemia. SOCIAL HISTORY: The patient lives with a caregiver. He tells me he was a smoker, though I cannot ask him exactly when because he is intubated, but apparently he has quit and he apparently does not drink, though I cannot figure out because of the difficulties in speaking to him whether he is an ex- drinker or not. He did serve in the [employer] and that was clear. FAMILY HISTORY: Cannot be obtained as he is intubated, sedated, and really having some trouble communicating. REVIEW OF SYSTEMS: Was done to the degree it was possible and those positives and negatives are included in the history of the present illness above. Otherwise, we are not able to go into too much detail because the patient is intubated, still a bit sedated and not able to supply much more data other than he did tell me that he can walk short distances with a walker. PHYSICAL EXAMINATION: Reveals a seriously ill gentleman lying supine in the ICU. When he first came in, he was afebrile and he remains that way. Temp 36.7, pulse currently around 80, regular, with some PVCs shown on the monitor. Blood pressure 101/57, and he is off all vasopressor agents as well as dobutamine, saturating 95% on 40 of FiO2, 5 of PEEP, and he is currently undergoing a pressure support trial and doing pretty well. He is awake and able to respond somewhat to questions. His head is without trauma. Eyes without conjunctivitis or scleral icterus. Nose appears normal. Oral endotracheal tube, oral gastric tube in good position. His neck is supple without adenopathy. He has many lines including a right IJ CVP, bilateral antecubital fossa, peripheral IVs, a left radial A-line, and a Gonzalez catheter. The patient's lungs are notable for some scattered rales and rhonchi, especially rhonchi and especially at the left base. Cardiac tones regular rate and rhythm with a 2/6 systolic murmur. The abdomen is soft and nontender. There is no appreciable organomegaly and no tenderness. I put tremendous pressure in the right upper quadrant and the patient absolutely states there is no tenderness there, nor has there been in recent days, according to the patient. He has no suprapubic fullness. He has a Gonzalez catheter present. Penis and scrotum appear normal. No inguinal adenopathy. His joints are without any evidence of synovitis. He has about 2+ edema below the knees, some venous stasis changes bilaterally, but no overt skin breakdown or cellulitis on the extremities. Neurologically, the patient can move everything and he seems to respond appropriately to questions, though it is difficult to tell, of course, with him still intubated but does seem intact. LABORATORIES: Include a white count which was a striking 41,000, with left shift, when he came in. It is now down to 28,000 after a day and a half with 9% bands, which is actually slowly improving. His platelet count is 100,000. When he came in, it was 131. The patient's creatinine, when he started a day and a half ago, 2.45. It is now down a full point, to 1.74. Bicarb was as low was 15 on admission, now 21. Lactic acid 2. Total bilirubin 2.5. AST 3800 and that is improved over 6967 when he came in. His alk phos 287. It was as high as 433 when he came in. BNP 2528. It was 11,800 when he came in, day and a half ago. Procalcitonin 0.18 on admission; now 0.95. Urinalysis on admission: 11-50 white cells, 11-50 red cells. Hep C antibody negative. Micro studies include negative blood cultures on admission, negative urine culture, negative MRSA screen, negative respiratory culture with basically rare polys and no growth actually on his respiratory culture, and his nasopharyngeal PCR for virus is negative. IMAGING: From admission, includes a chest x-ray which showed cardiomegaly and what appears to be a possible retrocardiac infiltrate, though it is difficult to tell as he likely has some CHF. Today's chest x-ray continues to show left greater than right bibasilar opacities. Abdominal pelvic CT scan was done, suspicious for acalculous cholecystitis, as the gallbladder has increased wall thickening and some sludge. The abdominal ultrasound is interesting in that it shows diffuse gallbladder wall thickening, which the radiologist opines could also be due to acute hepatitis or CHF. There is also evidence of granulomatous disease, within the spleen, which is likely old. IMPRESSION: It seems clear that the decline which occurred on September 10 and resulting in profound shock, lactic acidosis, and profound leukocytosis in this patient with attendant renal and hepatic injury was due to sepsis. At this point, however, I am uncertain as to the source. Being able to get some history from the patient today is very helpful and he specifically denies any abdominal pain, nausea, vomiting, or diarrhea prior to admission, and his physical exam reveals a completely benign abdomen with absolutely no right upper quadrant tenderness. This would be odd in terms of acalculous cholecystitis and I also wonder if whether the gallbladder wall thickness we see on the ultrasound and CT of the abdomen is just due to heart failure and/or his acute hepatic injury due to his shock. Interestingly, the patient readily answers questions about his urinary tract in a positive way and states that he had severe dysuria just prior to admission, raising the possibility of urosepsis. His urinalysis on admission was certainly not normal with pyuria and hematuria, but the confusing fact there is that his urine culture has been negative, and his CT scan did not show any changes consistent with hydronephrosis or pyelonephritis. Overall, I think this patient had septic shock, perhaps of a urinary source, and I am not convinced that he has acalculous cholecystitis. He is rapidly improving on a combination of azithromycin and meropenem, and I would be inclined to continue those antibiotics. Meropenem is certainly our broadest spectrum antibiotic and I do not like to use it too much empirically, but here we have a patient who has been admitted at least twice in the last three months to neighboring hospitals and I think it is probably reasonable as broad-spectrum coverage. RECOMMENDATIONS: 1. Hopefully, the patient will be extubated later today and this was discussed with Respiratory Therapy. 2. I would continue with azithromycin and meropenem, planning for a total course of seven days or so, if we do not find any positive cultures or obvious explanations for this apparent septic shock. 3. If we continue to pursue the gallbladder pathology angle, I think it would be reasonable to get a HIDA scan tomorrow as the dust settles and hopefully he will be extubated. 4. Will continue to monitor many parameters including procalcitonin, LFTs, and renal function in this obviously critically ill gentleman. 5. This case discussed in detail with the ICU team, including Dr. Rivera in person.
--- NOTE | 2016-09-13 16:53 | PROG NOTE ---
[address] [address] PROGRESS NOTE PATIENT: LUIS LEON : 1950 MR#: [id number] ADMIT: 09/11/2016 JOB ID: [id number] DATE: 09/13/2016 The patient is doing remarkably well, was extubated this morning. He has been hemodynamically stable. He tells me that he has no abdominal pain. PHYSICAL EXAMINATION: On physical examination, he has no right upper quadrant tenderness, normal bowel tones. His white count remains elevated at 28.2, his hematocrit is 33.4. He still has 9% band neutrophils. Chemistries show that his creatinine is trending down to 1.74. His lactate is back in the normal range this morning at 2. His liver function tests continue to be abnormal though transaminases are trending down in the 3000s today. His bilirubin is 2.5, having peaked at 3.9 two days ago. BNP remains elevated at 2528, down from admission of 11,000. His chest x-ray this morning was consistent with bibasilar pneumonia. IMPRESSION AND PLAN: A 65-year-old man who is doing remarkably well whose critical situation over the past 48 hours is improving but remains of unclear etiology. I have discussed the case with Dr. Rivera. It is unclear whether the primary event was primarily respiratory or cardiogenic or somehow related to an intra-abdominal infection. I think it is unlikely that acalculous cholecystitis led to his sudden decompensation. He continues on intravenous antibiotics with improvement. With his creatinine improving, some consideration could be given to CT scan with intravenous and oral contrast looking for some sort of infectious etiology such as intra-abdominal abscess or diverticulitis, but given his tremendous response to antibiotics and the fact that we are not planning to stop antibiotics, the question of whether the risk of intravenous contrast outweighs the benefits has to be considered. In terms of other diagnostic studies, a HIDA scan would effectively either rule in or rule out acalculous cholecystitis, and if the patient did demonstrate nonvisualization of his gallbladder with good visualization of the duodenum, I would recommend that he have a percutaneous cholecystostomy tube placed by Interventional Radiology rather than take him to the operating room for an intervention. I will discuss the case once again with Dr. Rivera including the role that General Surgery will play in continuing to follow this patient.
[2016-09-13] MEDS: Insulin LISPRO 300 Unit/3 mL Inj SUBQ SCH ×2 (16:56→21:07)
[2016-09-14] VITALS (11 sets, daily range): BP systolic 98–122; BP diastolic 60–72; PULSE 69–85; RESP 13–22; O2SAT 95–99
[2016-09-14] MEDS ORDERED: Meropenem 1 Gm/100 mL NS Minibag Plus IV SCH ×2
[2016-09-14 05:40] LABS: Mean Corpuscular Hemoglobin 27.4 pg (27.0-35.0); Mean Corpuscular Volume 88.3 fL (81-100); Platelet Count 84 bil/L (150-400)
[2016-09-14 05:55] LABS: BASOPHILS % (AUTO) 0 % (0-3); EOSINOPHILS % (AUTO) 0 % (0-5); MONOCYTES % (AUTO) 17.6 % (4-12); NEUTROPHILS % (AUTO) 77.4 % (40-74)
[2016-09-14 06:01] LABS: Magnesium 2.1 mg/dL (1.6-2.6); Phosphorus 4.2 mg/dL (2.5-4.9)
[2016-09-14 06:04] LABS: INR 1.46 ratio
--- NOTE | 2016-09-14 06:09 | NUR ---
Resp / Sleep SpO2 upper 90s on RA while patient is awake. When sleeping his SpO2 drops to the high 80s a few times and and the low 80s once, 2L NC is placed. and O2 levels improve. Patient complaining of having a difficult time sleeping. MD notified and Temazepam is ordered. Given and not effective. MD notified again and Xanax is ordered and given. Patent appeared to be sleeping for most of the rest of the night.
[2016-09-14] MEDS: Albuterol-Ipratropium 3 mL Inhalation Solution NEB SCH ×4 (07:38→19:58)
[2016-09-14] MEDS: Insulin LISPRO 300 Unit/3 mL Inj SUBQ SCH ×4 (08:00→21:58)
[2016-09-14] MEDS: Doxycycline Inj 100 MG in Dextrose 5% Minibag Plus 100 ML IV SCH ×2 (08:19→20:45)
[2016-09-14] MEDS: Famotidine Inj 20 MG in IV Premix 1 EACH IV SCH (08:19)
[2016-09-14] MEDS: Heparin 5,000 Unit/mL Inj SUBQ SCH ×2 (08:20→16:01)
[2016-09-14] MEDS: Meropenem Inj 1,000 MG in 0.9% Sodium Chloride 100 ML IV SCH ×2 (09:19→16:02)
--- NOTE | 2016-09-14 09:47 | PROG NOTE ---
[address] [address] PROGRESS NOTE PATIENT: LUIS LEON : 1950 MR#: [id number] ADMIT: 09/11/2016 JOB ID: [id number] DATE: 09/14/2016 REASON FOR FOLLOWUP: Septic shock of unknown etiology. INTERVAL HISTORY: In the past 24 hours since I last saw the patient, he has dramatically improved. He has been extubated. He is now awake, alert and able to give me a lucid history about the events leading up to his admission with the septic shock back on the night of September 11. He tells me that up until the point he developed the shock, hypotension and respiratory failure, he had been feeling reasonably well. He denies any preceding fevers or chills. He states he had no sore throat. He absolutely denies any increasing cough or shortness of breath. He says he had no significant abdominal pain, nausea or vomiting. Yesterday while he was still on the ventilator and very hard to get a history from, he told me that he had some dysuria, but today he is able to clarify and says he has dysuria occasionally on an ongoing basis. This is longstanding and did not change prior to admission. Today, the patient says he feels fine basically. He has been extubated. He has no fevers, no chills. No sore throat. No cough. No nausea, vomiting, or diarrhea. He says he has some very mild right lower quadrant pain but absolutely nothing in the right upper quadrant. He does not have any urinary complaints, though he still has a Gonzalez this morning. No specific complaints of pain in the extremities either. PHYSICAL EXAMINATION: Reveals an afebrile gentleman, he has been afebrile since admission now, 36.1, pulse 69, respiratory rate is 18. He is breathing on 2 L very comfortably. Blood pressure 116/68, saturating 99%. He is on no vasopressors. The patient is awake, alert, lucid. Oral cavity unremarkable. Eyes without conjunctivitis or scleral icterus. Lungs fairly clear. A few crackles at the bases. Cardiac tones regular rate and rhythm. The abdomen is soft and nontender. He says there is some very mild right lower quadrant tenderness but even with extreme deep palpation the patient does not even flinch or appear to be in any pain whatsoever. Certainly no peritoneal signs. No skin rash compatible with cellulitic process. LABORATORIES: Include a white count which has dropped to 21,000. The bandemia has resolved, however. His creatinine is dropping steadily from a high of 2.6 now down to 1.5, so his creatinine clearance is undoubtedly approaching normal. Lactic acid is finally gone. Bilirubin is still 2.8, moderately elevated. His AST, though, is rapidly improving. It peaked at 5700, is now down to 1350. ALT likewise peaked at 4150, it is now down to 2450. Procalcitonin was 0.95 yesterday. Micro studies remain entirely unhelpful. Blood, urine, MRSA, PCR, sputum studies and a PCR on respiratory secretions are all completely negative. We do not have a chest x-ray from today but yesterday's was unimpressive with some subtle bibasilar infiltrates. IMPRESSION: This patient suffered septic shock with multiorgan system failure on September 10 and , resulting in his ICU admission, the use of vasopressors, and intubation. He suffered severe hepatic and renal injury. He is now getting better almost as fast as he got sick, and it remains unclear where the source was. I am still skeptical about acalculous cholecystitis, though the CT and the ultrasound suggested this as a possibility, as the patient has absolutely no right upper quadrant tenderness. The only complaint he has today is the mild right lower quadrant tenderness, but nothing really of interest was seen on the CT scan. My best estimation at this point might be that the patient suffered a life-threatening transient infection related to some intra-abdominal process, but at this point it remains unclear to me what it is. Given his rapid improvement, we will try to confine our antibiotics to seven day course or so. Given that we do not have any positive cultures or data, we are really at a loss to narrow our antibiotics very much. RECOMMENDATIONS: 1. Will continue with the doxycycline and meropenem. Note that yesterday I was under the impression he was on azithromycin, which is not correct. 2. I would anticipate giving these antibiotics for a total of seven days or so, but we might be able to narrow a little bit as we continue to have negative cultures. 3. There is a plan underway for a HIDA scan which I think is reasonable to help in exonerate the gallbladder, but given his rapid improvement, I am not sure that any intervention would be indicated at this point. 4. Will continue to closely follow this complex patient with you. 5. This case was discussed with the ICU team during rounds as well as respiratory therapy and nursing at the bedside.
--- NOTE | 2016-09-14 10:18 | PCM.PNMED ---
Subjective Date of Service Sep 14, 2016 Subjective Pulmonary/Critical care Patient is a 65yom with MHx significant for obesity, hypertension, DMII, COPD with sequela of DAVIS, CAD, HFrEF, afib and mitral valve regurgitation presented sedated/intubated for acute respiratory failure in the filed and transferred to CCU due to sepsis shock. Since admission, CT-scan showed thicken gallbladder, possible acalculous cholecystitis. He was placed on meropenem and azithromycin. Infectious Disease, Dr. Buckley has since d/c azithromycin for doxycycline. He was weened off pressor and dobutamine drip, then extubated on 09/13. Patient has no new complaints today. Denies any SOB, chest pain, abdominal pain , or dysuria. No fever, chills, or night sweats. No nausea, vomiting, or diarrhea. Exam Vital Signs Vital Sign - Last Date Time Temp Pulse Resp B/P Pulse Ox O2 Delivery O2 Flow Rate FiO2 09/14/16 08:30 Supplement Oxygen 09/14/16 08:30 36.4 70 13 122/72 99 2.00 09/13/16 11:30 40 Intake and Output 09/13/16 09/13/16 09/14/16 Cumulative From/Thru 15:00 23:00 07:00 09/11/16 19:50 - 09/14/16 05:13 Intake Total 624 ml 501 ml 4870 ml Output Total 1800 ml 950 ml 3950 ml Balance -1176 ml -449 ml 920 ml Intake Oral 460 ml 200 ml 660 ml IV Total 164 ml 301 ml 4210 ml Output Urine Total 1800 ml 950 ml 3950 ml Lab and Diagnostics Result Diagram: 09/14/16 0505 09/14/16 0505 X-Rays, CTs and MRIs X-RAY CHEST ONE VIEW, PORTABLE IMPRESSION: Cardiomegaly with increased pulmonary vascularity suggestive of edema. In addition, there is increased retrocardiac opacity which could be represent a focal edema, atelectasis or potentially developing pneumonia. Dictated by: Leeanna Kruse M.D. on 09/11/2016 at 20:22 Approved by: Leeanna Kruse M.D. on 09/11/2016 at 20:23 CT ABDOMEN AND PELVIS WITHOUT CONTRAST IMPRESSION: 1. Constellation of findings suspicious for acalculous cholecystitis. 2. Moderate cardiomegaly, as well as trace basal right pleural effusion. 3. Mild sigmoid colon diverticulosis. 4. Small bilateral fat containing inguinal hernias. No significant discrepancy with preliminary [facility] report. Dictated by: Gadiel Will M.D. on 09/12/2016 at 8:50 Approved by: Gadiel Will M.D. on 09/12/2016 at 8:59 CT BRAIN WITHOUT CONTRAST IMPRESSION: No acute intracranial abnormalities. Dictated by: Gadiel Will M.D. on 09/12/2016 at 7:40 Approved by: Gadiel Will M.D. on 09/12/2016 at 7:42 US ABDOMEN IMPRESSION: 1. Diffuse gallbladder wall thickening would be worrisome for acalculous cholecystitis in the appropriate clinical setting. Other differential diagnoses may include sequelae of acute hepatitis, congestive heart failure, underlying chronic liver disease, hypoproteinemia, or pancreatitis. 2. Splenic remote granulomatous disease. Dictated by: Gadiel Will M.D. on 09/12/2016 at 6:58 Approved by: Gadiel Will M.D. on 09/12/2016 at 7:07 Cardiac Echo Impressions Echocardiogram Report Interpretation Summary 1. Markedly dilated left ventricle with upper limits of normal wall thickness and globally reduced systolic function with an estimated EF of 25 to 30% 2. Mildly dilated right ventricle with low normal systolic function. 3. Severe mitral regurgitation into a dilated left atrium There is no old study for comparison Reading Physician:03:08 PM Additional Diagnostics US VENOUS LEG DUPLEX BILATERAL IMPRESSION: No sonographic evidence for lower extremity deep venous thrombosis. Dictated by: Gadiel Will M.D. on 09/12/2016 at 10:11 Approved by: Gadiel Will M.D. on 09/12/2016 at 10:13 Assessment & Plan Patient is a 65yom with MHx significant for obesity, hypertension, DMII, COPD with sequela of DAVIS, CAD, HFrEF, afib and mitral valve regurgitation presented sedated/intubated for acute respiratory failure in the filed and transferred to CCU due to sepsis shock. Sepsis shock since, resolved. He was down grade to PCU status. Questionable source of infection, given high WBC. Respiratory Hypoxic respiratory failure, resolved - initially sedated/intubated for 2days, now extubated - Cont NC to maintain O2 >92% sat COPD - Duoneb Q4HWA Infectious Possible acalculous cholecystitis - WBC continue trending downward on broad spectrum meropenem and doxycycline - HIDA scan ordered - Appreciate ID Dr. Buckley continue following Cardiovascular HFrEF (25-30%) - home dosed is Lasix 120mg TID - Hold off diurese overnight for renal function to recover. Hematology Thrombocytopenia - platelets 100's, high D-dimers, few schizocytes - platelet stable, showing giant platelets however. - likely DIC, in the setting of giant platelets, this may be hereditary related and therefore chronic - Cont to trend, CBC daily Metabolic KARELY - Likely from shock, slowly resolving Alimentary Transaminitis - shock liver vs acalculous cholecystis, slowly improving - HIDA scan today - Appreciate Surgery continue following GI Prophylaxis: H2 kaleigh VTE Prophylaxis: Sub-Q Heparin (Unfractionated) Resuscitation Status: CPR: Attempt Resuscitation Shola Maier DO Sep 14, 2016 10:18 Shola Maier DO Sep 14, 2016 10:18 -Patient intubated in field however presentation in [facility] concerning for COPD exacerbation -cont albuterol q2PRN, albuterol ipratropium q4HR scheduled -125 methylpred q6hr x3. 6. Anion gap Metabolic acidosis, acute, present on admission -secondary to lactic acid and renal failure -1amp bicarb given, bicarb gtt started by admitting team and discontinued within hours - Fluids urine as described above in CHF -repeat ABG prn 7. Acute renal failure, present on admission -Likely multifactorial with dehydration versus perceived prerenal given low cardiac output -avoid nephrotoxic medications, hold ARB -nephrology consult in am, AM team to contact 8 Hepatic failure, acute, present on admission -Elevated transaminitis, PT/INR, alkaline phosphatase and elevated bilirubin with elevated direct bilirubin consistent with hepatocellular injury more than biliary obstruction -Differential diagnosis includes shock liver from hypoperfusion versus possible toxic acalculous cholecystitis, distant history of ETOH use, history of mild [facility] -Surgery and IR consulted for possible cholecystectomy none surgical candidate at this time 9 Right upper quadrant Abdominal pain, acute, present on admission -patient able to confirm RUQ pain, tenderness on PE -Continuous Improvement Manager phoned on September 12 noted recent complaints of ongoing abdominal pain with anorexia only able to eat fruit -labs suggest possible biliary obstruction more likely hepatocellular injury -Imaging is consistent with thickened gallbladder wall of acalculous cholecystitis on both CT and abdominal ultrasound -Surgery and IR consultation and patient is not a surgical candidate at this time 10. Elevated troponin of unknown significance, acute, present on admission -mildly elevated and trended down in the setting of renal failure however patient does have a history of CAD, CHF, Sick Sinus Syndrome and AICD placement -cardiology was consulted and EKG reviewed prior to admission -Continue to monitor and treatment as above 12 Hyperkalemia, acute, present on admission -secondary to renal failure -calcium gluconate, Kayexalate, and albuterol given -D10 drip and insulin drip started, D10 converted to D5 normal saline given mild hyponatremia -monitor closely 13 Hematuria, unknown chronicity, present on admission -continue to monitor -no nephrolithiasis seen on CT 14 possible disseminated intravascular coagulopathy, acute, present on admission -likely secondary to severe sepsis -Elevated d-dimer increased on subsequent draws with negative ultrasound for DVT however pulmonary embolus has not been ruled out, CT PE not possible given acute kidney injury -Elevated INR consistent with liver failure, no records of chronic anticoagulation from [place] -Fibrinogen and PTT normal -Haptoglobin pending -Peripheral smear shows some schistocytes however not a significant number -Fresh frozen plasma considered and not given 15 Elevated glucose, acute, present on admission -Reported history of diabetes -most recent hgba1c 5.7 as per paper record, unclear when this was complete -repeat hgb A1c pending 16 history of severe bradycardia, unknown chronicity, present on admission -Patient's caregiver notes history of severe bradycardia down into the 30s [facility] -Records indicate that the patient was considered for a possible pacemaker to replace his AICD -Likely sick sinus syndrome -Avoid beta blockers Bowel regimen available when necessary The patient will likely remain inpatient for several more days given the current list of diagnoses and the likely complications possible. Case was discussed with Dr. Gordon (Gen Surg) and Dr. Rivera (CCU) extensively today. GI Prophylaxis: H2 kaleigh VTE Prophylaxis: Sub-Q Heparin (Unfractionated) Resuscitation Status: CPR: Attempt Resuscitation Shola Maier DO Sep 14, 2016 10:18
--- NOTE | 2016-09-14 11:03 | NUR ---
NUTRITION FOLLOW UP: ASSESS: 65 YO male admitted for severe sepsis, respiratory failure. Pt extubated 09/13. Diet advanced to consistent carb with good PO intake. PMHx: GERD, constipation, COPD, PTSD, prostate cancer, DAVIS on CPAP, DM2, CAD, A-fib, CHF, peripheral neuropathy, spinal stenosis. gout, colon polyps, carpal tunnel, depression, HTN, HLD, chronic pain. DIET: Consistent Carb. PO intake 100%. LABS: BUN 35, Cr 1.47, Glu 112, Ca 8.4, AST 1352, ALT 2458, Alb 3.0 MEDICATIONS: Pressor. GI: No stool noted. SKIN: No issues reported. ANTHROPOMETRICS: Current Wt: 114.5 kg, BMI: 36.2 kg/m2. IBW:75.45 kg (152% IBW), Admit wt: 114.8 kg. ESTIMATED NEEDS (BMI) Calories: 9322-8948 kcal/day (20- 22 kcal/kg BW) Protein: 91-113 g/day (1.2-1.5 g/kg IBW) Fluid: Approx. 2870 mL (25 mL/kg BW) NUTRITION DIAGNOSIS: 1) Inadequate oral intake related to inability to consume sufficient energy, as evidenced by NPO/vent status.-IMPROVED. 2) Altered GI function related to potential acalculous cholecystitis, as evidenced by significantly elevated LFT's, bili, alk phos.-IMPROVING. INTERVENTION: 1) Continue current diet as ordered MONITOR/EVALUATE: Diet tolerance, labs, PO intake, GI/nutrition status. Follow per high nutrition risk guidelines. Addendum: 09/14/16 at [address] Correction: Toni d/c'd. Follow per low nutrition risk guidelines.
--- NOTE | 2016-09-14 14:04 | NUR ---
P: Respiratory Distress I: Pt states he has no SOB or pain. 2L/NC with sats stable. Asked pt about home CPAP but he really doesn't wear it. He uses home O2 for sleep. RIJ TLC patent. Left wrist arterial line dc'd without difficulty. Bilateral saline locks dc'd with catheters intact. Taking diet and fluids well. NPO for a couple hours for hiata scan. NS TKO for meds. Gonzalez patent and draining light neema urine. Blood sugars stable and no sliding scale coverage needed. NSR with 1st degree heart block and PVC's. Afebrile. E: Stable S: Alert and oriented. Uses call light appropriately. Frequent rounding.
--- NOTE | 2016-09-14 16:10 | NUR ---
Spoke with Simin at patient access [facility]. Patient is 60% service connected, patient also has [employer] and SHANELL Recinos. He has two providers at [facility] Dr. Luís Bautista [phone] Dr.Nicholas Allen [phone] Updated HEAD TRIMMER
--- NOTE | 2016-09-14 16:22 | PCM.PNMED ---
Subjective Date of Service Sep 14, 2016 Subjective Mr. Quigley is a 65-year-old male with past medical history significant for obesity, hypertension, diabetes mellitus type II, chronic obstructive pulmonary disease, coronary artery disease, congestive heart failure, atrial fibrillation , mitral regurgitation, who is admitted to the CCU status post intubation due to septic shock. Patient was successfully extubated yesterday without complication. Overnight: Patient's oxygen saturation fell with resolution of hypoxia with 2 L O2 nasal cannula in place. Patient required temazepam and Xanax for sleep Today: Patient has no complaints, states he feels almost all better. Denies chest pain, shortness of breath, abdominal pain, headache, visual changes, nausea/vomiting or GI/ symptoms. Exam Vital Signs Vital Sign - Last Date Time Temp Pulse Resp B/P Pulse Ox O2 Delivery O2 Flow Rate FiO2 09/14/16 12:30 36.4 74 18 101/63 97 Nasal Cannula 2.00 09/13/16 11:30 40 Intake and Output 09/13/16 09/13/16 09/14/16 Cumulative From/Thru 15:00 23:00 07:00 09/11/16 19:50 - 09/14/16 05:13 Intake Total 624 ml 501 ml 4870 ml Output Total 1800 ml 950 ml 3950 ml Balance -1176 ml -449 ml 920 ml Intake Oral 460 ml 200 ml 660 ml IV Total 164 ml 301 ml 4210 ml Output Urine Total 1800 ml 950 ml 3950 ml Exam General: Obese male Sitting up in bed in no acute distress, awake and alert answering questions appropriately well-developed, well-nourished, appropriately interactive HEENT: Normocephalic, atraumatic. External ears without defect. Pupils equal, round, and reactive to light and accommodation. Anicteric sclerae, moist conjunctivae, and no lid lag. Oropharynx free of erythema and cobble stoning with moist mucosa. Neck: Supple with full range of motion. No jugular venous distension. Cardiovascular: Regular rate and rhythm with no murmurs appreciated. Pulmonary: Clear to auscultation bilaterally upper anterior and posterior lobes. Slight crackles heard at lung bases bilaterally. Normal respiratory effort with no use of accessory muscles. Abdomen: Bowel tones present. Soft, nontender to palpation 4 quadrants. Crespo sign negative. No guarding no rebound tenderness. Extremities: Mild lower extremity edema bilaterally Skin: Normal temperature, turgor, and texture Neurological: Cranial nerves grossly intact. Psychiatric: Normal mood and affect. Alert and oriented to person, place, and time. IVs and Medications Medications Reviewed: Medications were reviewed in detail Lab and Diagnostics Result Diagram: 09/14/16 0505 09/14/16 0505 Microbiology Nasopharyngeal PCR negative, sputum culture negative, MRSA negative, urine culture negative, but culture 2 no growth to date. X-Rays, CTs and MRIs . X-RAY CHEST ONE VIEW, PORTABLE IMPRESSION: Cardiomegaly with increased pulmonary vascularity suggestive of edema. In addition, there is increased retrocardiac opacity which could be represent a focal edema, atelectasis or potentially developing pneumonia. Dictated by: Leeanna Kruse M.D. on 09/11/2016 at 20:22 X-RAY CHEST ONE VIEW, PORTABLE IMPRESSION: Interval support lines as above. Persistent bilateral patchy opacities as noted. Dictated by: Leeanna Kruse M.D. on 09/11/2016 at 22:08 X-RAY CHEST ONE VIEW, PORTABLE IMPRESSION: No change in bibasilar pneumonia. Dictated by: Austin Schmitz M.D. on 09/13/2016 at 7:44 US ABDOMEN IMPRESSION: 1. Diffuse gallbladder wall thickening would be worrisome for acalculous cholecystitis in the appropriate clinical setting. Other differential diagnoses may include sequelae of acute hepatitis, congestive heart failure, underlying chronic liver disease, hypoproteinemia, or pancreatitis. 2. Splenic remote granulomatous disease. No significant discrepancy with preliminary [facility] report. Dictated by: Gadiel Will M.D. on 09/12/2016 at 6:58 US VENOUS LEG DUPLEX BILATERAL IMPRESSION: No sonographic evidence for lower extremity deep venous thrombosis. Dictated by: Gadiel Will M.D. on 09/12/2016 at 10:11 CT BRAIN WITHOUT CONTRAST IMPRESSION: No acute intracranial abnormalities. No significant discrepancy from preliminary [facility] report. Dictated by: Gadiel Will M.D. on 09/12/2016 at 7:40 CT ABDOMEN AND PELVIS WITHOUT CONTRAST IMPRESSION: 1. Constellation of findings suspicious for acalculous cholecystitis. 2. Moderate cardiomegaly, as well as trace basal right pleural effusion. 3. Mild sigmoid colon diverticulosis. 4. Small bilateral fat containing inguinal hernias. No significant discrepancy with preliminary [facility] report. Dictated by: Gadiel Will M.D. on 09/12/2016 at 8:50 Cardiac Echo Impressions Echocardiogram Report Interpretation Summary 1. Markedly dilated left ventricle with upper limits of normal wall thickness and globally reduced systolic function with an estimated EF of 25 to 30% 2. Mildly dilated right ventricle with low normal systolic function. 3. Severe mitral regurgitation into a dilated left atrium There is no old study for comparison Reading Physician:03:08 PM Additional Diagnostics US VENOUS LEG DUPLEX BILATERAL IMPRESSION: No sonographic evidence for lower extremity deep venous thrombosis. Dictated by: Gadiel Will M.D. on 09/12/2016 at 10:11 Approved by: Gadiel Will M.D. on 09/12/2016 at 10:13 Assessment & Plan 65yoM with past medical history of COPD, CAD, LBBB, HFrEF (30-35%), VT s/p AICD placement, severe mitral regurgitation, noted severe bradycardia into the 30s, with recent admission to [facility] for acute CHF exacerbation admitted following episode of respiratory distress while at home. Hospital day 3. 1. Acute hypoxic hypercapnic respiratory failure, present on admission, resolved - Respiratory failure prior to presentation at [facility] with intubation in the field by EMS on 09/11/16. - Extubated for 09/13/2016 - Downgraded from ICU 2. Shock, acute, present on admission, improving - Patient hemodynamically stable, afebrile lactic acidosis has resolved. White count remains elevated though trending down - Likely is septic given leukocytosis, with possible source gallbladder infection. Differential diagnosis includes cardiogenic shock given a known diagnosis of systolic congestive heart failure with likely sick sinus syndrome severe bradycardia. - Patient initially required pressor support with norepinephrine and inotropic support with dobutamine, the patient has been able to be titrated off blood pressure support - Limit IV fluids given discussed below in #4 due to significant systolic congestive heart failure with goal MAP >65. 3. Severe sepsis, acute, present on admission, resolved - Criteria met: leukocytosis (16.5 and rising), low temp (36 and below) as well as severe lactic acidosis (8.9). Presumed GI source. - CT concerning for acalculous cholecystitis with significantly thickened gallbladder wall but no distention. - Continue doxycycline and meropenem per ID recommendations - Surgery consulted in ED and we appreciate their recommendations. - Interventional radiology consulted for possible percutaneous drain, not likely a candidate given significant elevation in INR without gallbladder distention. 4. Acute on chronic systolic heart failure, present on admission, ongoing. - Records from [facility] show recent echo results with EF 30-35%. Echo from 09/12/16 shows EF of 20-25%. - Optimization of medications at discharge from [facility] 08/11/2016 - At this time will minimize IV fluids as much as possible. - Holding home furosemide 120 mg BID, metoprolol succinate 50 mg BID, spironolactone 25 mg daily, and losartan 50 mg BID as patient has been hypotensive. May slowly consider adding one med back at a time. - We will start conservatively reintroducing Lasix 20 mg IV today 5. Acute exacerbation of chronic obstructive pulmonary disease, present on admission, improving. - Patient intubated in field however presentation in [facility] concerning for COPD exacerbation. - Continue albuterol q2PRN, DuoNeb QID scheduled. - Patient completed short course of Solu-medrol 125 mg IV. 6. Anion gap Metabolic acidosis, acute, present on admission, improving. - Secondary to lactic acid and KARELY. - Lactic acidosis resolved with KARELY improving. - Continue to monitor BMP, ABG. 7. Acute renal failure, present on admission, improving. - Likely multifactorial with dehydration versus perceived prerenal given low cardiac output. - Avoid nephrotoxic medications, hold ARB. - Continue to monitor BMP. 8. Hepatic failure, acute, present on admission, improving. - Elevated transaminases, PT/INR, alkaline phosphatase and elevated bilirubin with elevated direct bilirubin consistent with hepatocellular injury more than biliary obstruction. - Differential diagnosis includes shock liver from hypoperfusion versus possible toxic acalculous cholecystitis, distant history of ETOH use, history of mild elevation in transaminases noted in [place] records - Surgery and IR consulted for possible cholecystectomy - not surgical candidate at this time. - Continue to monitor CMP, PT/INR. 9. Right upper quadrant abdominal pain, acute, present on admission. Resolved - Want Ad Clerk phoned on September 12 noted recent complaints of ongoing abdominal pain with anorexia. Labs suggest possible biliary obstruction more likely hepatocellular injury. - Imaging is consistent with thickened gallbladder wall of acalculous cholecystitis on both CT and abdominal ultrasound - Surgery and IR consultation and patient is not a surgical candidate at this time. - Continue to monitor closely. 10. Elevated troponin of unknown significance, acute, present on admission, improving. - Mildly elevated and trended down in the setting of renal failure however patient does have a history of CAD, CHF, Sick Sinus Syndrome and AICD placement. - Continue to monitor and treat other conditions as above. 11. Hyperkalemia, acute, present on admission, improved. - Secondary to renal failure. - Treated with Kayexalate, calcium gluconate, bicarb, insulin/D10. - Hold spironolactone at this time. - Continue to monitor BMP. 12. Hematuria, unknown chronicity, present on admission. - Etiology unknown with no nephrolithiasis seen on imaging. Some evidence of possible UTI. - Gonzalez catheter currently in place - continue to monitor. 13. Possible disseminated intravascular coagulopathy, acute, present on admission - Likely secondary to severe sepsis. - Elevated d-dimer increased on subsequent draws with negative ultrasound for DVT however pulmonary embolus has not been ruled out, CT PE not possible given acute kidney injury. - Elevated INR consistent with liver failure, no records of chronic anticoagulation from [place]. - Haptoglobin pending. 14. Hyperglycemia, acute, present on admission, improving. - A1c 6.3. - Insulin lispro with meals 15. History of severe bradycardia, chronic, present on admission. - Likely sick sinus syndrome. Records indicate that the patient was considered for a possible pacemaker to replace his AICD. - Will avoid beta blockers at this time. - Continue telemetry. Pain Evaluation: Adequate Pain Control GI Prophylaxis: H2 kaleigh VTE Prophylaxis: Sub-Q Heparin (Unfractionated) Resuscitation Status: CPR: Attempt Resuscitation Attending Statement The patient was seen and examined together with Dr. Vicente on 09/14/2016 and I agree with the history, exam and plan as outlined in the note above. . PATRICK VICENTE DO Sep 14, 2016 14:20 Reginald Matthews MD Sep 16, 2016 08:10
[2016-09-14] MEDS ORDERED: Furosemide 10 mg/mL 2 mL Inj IVPUSH ONE (16:30)
--- NOTE | 2016-09-14 16:59 | DRSVH ---
PROCEDURE: NM HIDA SCAN WITH CCK PHARMACEUTICAL: 5.2 mCi Tc-99m mebrofenin IV; 2.70 mcg CCK IV. INDICATIONS: acalculous cholecystits TECHNIQUE: Following intravenous administration of Tc-99m mebrofenin, sequential anterior abdominal images were obtained. To evaluate the contractile response of the gallbladder in response to Cholecystokinin (CC K), sincalide (0.02 g/kg) was administered by slow intravenous infusion approximately 60 minutes aft er the administration of the radiopharmaceutical. Sequential imaging was continued for [address] the start of CCK infusion. Gallbladder ejection fraction was calculated. COMPARISON: , US, US ABDOMEN, 09/11/2016, 21:59. , CT, C T ABD PELVIS WO CON, 09/11/2016, 22:50. FINDINGS: Biliary scan: There is normal tracer uptake and excretion by the liver. There is normal visualizati on of the intrahepatic ducts, common bile duct, and gallbladder. There is normal tracer transit into the duodenum. CCK stimulation: There is poor contractile response of the gallbladder to CCK infusion. The calcula xuan gallbladder ejection fraction is 0%; normal values are above 35%. It has been shown that any patient abdominal pain after CCK administration is related to the rate of CCK injection, rather than to any underlying gallbladder disease (Clinical Nuclear Medicine 2012; 37: 63-70. Journal of Nuclear Medicine 2014; 55: 1-9). IMPRESSION: 1. Normal filling of gallbladder. No evidence for acute cholecystitis. 2. Poor contractile response of gallbladder to CCK infusion. This finding may be secondary to gallbla dder dyskinesia or chronic cholecystitis. Dictated by: Kailee Li M.D. on 09/14/2016 at 16:56 Approved by: Kailee Li M.D. on 09/14/2016 at 16:57
[2016-09-14] MEDS: Polyethylene Glycol (PEG) 17 Gm Powder PO PRN (20:45)
[2016-09-14] MEDS: Senna-Docusate 8.6-50 mg Tablet PO PRN (20:45)
--- NOTE | 2016-09-14 22:59 | PROG NOTE ---
[address] [address] PROGRESS NOTE PATIENT: LUIS LEON : 1950 MR#: [id number] ADMIT: 09/11/2016 JOB ID: [id number] DATE: 09/14/2016 SUBJECTIVE: The patient is seen in followup for the surgical team. He continues to do well, remaining afebrile and hemodynamically normal over the last 24 hours. HIDA scan was obtained today, which I have personally reviewed, and demonstrates normal filling of the gallbladder. The calculated gallbladder ejection fraction is 0%. His white blood cell count continues to trend in the normal direction, now down to 21.4. He continues to deny any abdominal pain. OBJECTIVE: His abdomen is soft, nontender, nondistended. ASSESSMENT AND PLAN: This is a 65-year-old man admitted with severe sepsis with concern that his gallbladder may be the source. Given that the patient denies any abdominal pain, that his HIDA scan demonstrates normal filling, I think we can safely rule out the gallbladder. The decreased ejection fraction of 0% is likely of no consequence. If, when the patient has fully recovered, he complains of right upper quadrant postprandial abdominal pain, that could be addressed with an outpatient surgical referral. At this time, General Surgery is going to sign off. Please feel free to contact a member of the team if there are any questions or concerns.
[2016-09-15] VITALS (11 sets, daily range): BP systolic 93–107; BP diastolic 52–75; PULSE 71–82; RESP 20–23; O2SAT 95–99
[2016-09-15] MEDS: Meropenem Inj 1,000 MG in 0.9% Sodium Chloride 100 ML IV SCH ×3 (00:31→19:59)
[2016-09-15] MEDS: Heparin 5,000 Unit/mL Inj SUBQ SCH (00:32)
[2016-09-15] MEDS ORDERED: LORazepam 1 mg Tablet PO ONE (00:45)
--- NOTE | 2016-09-15 01:14 | NUR ---
anxiety pt c/o anxiety and unable to fall back to sleep, pt requesting Xanax (which he had previous night) called MD received order, gave and effective
[2016-09-15 04:42] LABS: Mean Corpuscular Hemoglobin 27.2 pg (27.0-35.0); Mean Corpuscular Volume 89.3 fL (81-100); Platelet Count 68 bil/L (150-400)
[2016-09-15 05:07] LABS: BASOPHILS % (AUTO) 0 % (0-3); EOSINOPHILS % (AUTO) 0 % (0-5); MONOCYTES % (AUTO) 12 % (4-12); NEUTROPHILS % (AUTO) 80 % (40-74)
[2016-09-15] MEDS: Insulin LISPRO 300 Unit/3 mL Inj SUBQ SCH ×4 (07:30→21:24)
[2016-09-15] MEDS: Famotidine Inj 20 MG in IV Premix 1 EACH IV SCH (07:33)
[2016-09-15] MEDS: Doxycycline Inj 100 MG in Dextrose 5% Minibag Plus 100 ML IV SCH ×2 (07:38→21:23)
[2016-09-15] MEDS: Albuterol-Ipratropium 3 mL Inhalation Solution NEB SCH ×4 (08:28→20:43)
--- NOTE | 2016-09-15 08:39 | PROG NOTE ---
[address] [address] PROGRESS NOTE PATIENT: LUIS LEON : 1950 MR#: [id number] ADMIT: 09/11/2016 JOB ID: [id number] DATE: 09/15/2016 REASON FOR FOLLOW UP: Septic shock of unknown source. INTERVAL HISTORY: The patient continues to rapidly improve. This morning, he says he has no fevers, no chills, no sweats. No significant cough, sore throat, nausea, vomiting, diarrhea or abdominal pain. He is bothered by his Gonzalez catheter and otherwise feels fine. PHYSICAL EXAMINATION: Reveals a consistently afebrile gentleman. Temperature currently 36.4, pulse 75, respiratory rate 20, blood pressure 104/75, saturating well on 2 L. Mental status is completely clear. Oral cavity without thrush or hairy leukoplakia. Neck without adenopathy or stiffness. Lungs relatively clear. Cardiac tones without significant murmur. Abdomen is slightly obese, soft, nontender. Gonzalez catheter is present. Right neck central line present. No edema or cellulitis of the lower extremities. LABORATORIES: Include a white count which is rapidly dropping, now 11,000. Platelets also dropping, now 68,000. A normal diff essentially on the white count. Creatinine 1.4, which has improved from 2.6 on admission. AST is down to 560, ALT down to 1792, alk phos down to 271. Procalcitonin 0.45, down from 0.95. Blood cultures negative. Urine culture negative. MRSA screen negative. Tracheal culture negative. A nasopharyngeal PCR negative. IMAGING: Includes a negative HIDA scan. The chest x-ray shows subtle bibasilar infiltrates. IMPRESSION: This patient presented with what appeared to be fulminant septic shock with profound leukocytosis over 40,000, refractory shock, need for intubation, and acute hepatic and renal failure. All of these problems have dramatically improved in just three or four days, with now the patient sitting up having breakfast, feeling fine, with a near normal white count and rapidly improving renal and hepatic function. The patient tells me this happened to him twice in the last six or seven months, once at the [facility] in [place] and once at [facility] in [place]. The cause was never completely clear according to the patient, though our records indicate they felt he had pneumonia during at least one of these hospitalizations. The patient has had colonoscopies and now HIDA scans and investigations into his gallbladder which remain negative, and the source of this apparent recurrent septic shock is unclear. The odds would suggest that this is most likely of gastrointestinal origin, though clearly not related to the gallbladder. RECOMMENDATIONS: 1. Will continue with the current antibiotics which include meropenem and doxycycline for a total one week course. 2. The doxycycline could be changed to oral at any time. 3. I would remove the Gonzalez catheter as soon as possible. 4. A comprehensive ID evaluation should really be considered after the patient has stabilized including levels of immune function such as quantitative immunoglobulins complement and any other factors which might be thought to be contributing to these recurrent episodes of septic shock. Perhaps a swallow study might also be indicated in additional evaluation of the GI tract, but at this point, the patient seems well on his way to recovery.
--- NOTE | 2016-09-15 14:20 | NUR ---
Evaluation completed. Please go to "Notes" then click on "Assessments and Notes" (bottom left corner of screen). Then select appropriate discipline tab on top of screen.
[2016-09-15] MEDS: Senna-Docusate 8.6-50 mg Tablet PO PRN (15:23)
[2016-09-15] MEDS: Polyethylene Glycol (PEG) 17 Gm Powder PO PRN (15:23)
--- NOTE | 2016-09-15 18:12 | CONS ---
[address] [address] CONSULTATION REPORT PATIENT: LUIS LEON : 1950 MR#: [id number] ADMIT: 09/11/2016 JOB ID: [id number] DATE OF SERVICE: 09/15/2016 REQUESTED BY: Dr. Reginald Matthews. HISTORY: The patient is a 65-year-old man who has a history of recurrent unexplained sepsis. He describes his symptoms starting as malaise. He was admitted on September 12, 2016. At the time of admission, he was intubated. He had recently been discharged from the [facility] because of pneumonia. He was hypotensive in the emergency department and was intubated. He has had other episodes similar to this. He does have multiple comorbidities including congestive heart failure, ejection fraction 25, mitral regurgitation, AICD with occasional fires, history of pneumonia in May, PTSD, prostate cancer, diabetes mellitus, peripheral neuropathy, hypertension and hyperlipidemia. The reason that Surgery was asked to see him, and the 1st consultation was done by Dr. Gordon and the followup by Dr. Murphy, was for possible cholecystitis. This was based on his imaging studies. An abdominal CT scan on September 12 showed some circumferential gallbladder thickening, possibly with gallbladder sludge. The findings were suspicious for acalculous cholecystitis, but his abdominal ultrasound showed his gallbladder wall to be 6.7. There were no gallstones or sludge identified. There was some pericholecystic fluid. The ultrasonic Crespo sign was negative. He then yesterday had a gallbladder scan. It showed normal filling of the gallbladder without cystic duct occlusion, but the ejection fraction was 0. The patient denies abdominal pain. He never has postprandial abdominal pain, epigastric pain, right upper quadrant pain, pain radiating into his back. He does not have nocturnal pain. He has no history of jaundice, acholic stools, dark urine or pancreatitis. He has never had an abdominal operation. The patient is now feeling better. LABORATORY STUDIES: His white blood cell count has fallen from 41.5-11.2 today. He also has had an elevated bilirubin, AST, ALT but those are more likely from sepsis. PHYSICAL EXAMINATION: Alert, appearing older than stated age. No acute distress. BMI 36, temperature is 36.2, brachial, blood pressure 106/68, pulse 74, respiratory rate 20, O2 sat on 1.5 L 96%. HEENT: PERRLA, EOMI. Abdomen: Obese. His abdominal wall is deconditioned. He has no abdominal tenderness in any quadrant but, in specific, the right upper quadrant. IMPRESSION: Recurrent episodes of sepsis, etiology unknown. With a patent cystic duct, I concur with Dr. Murphy that I do not think his sepsis is from his gallbladder. He has an abnormal ejection fraction, but he has no symptoms. The indication to remove the gallbladder in the setting of gallbladder dyskinesia is associated typical biliary colic, and he has no abdominal pain. I did discuss with him a laparoscopic cholecystectomy and potential risks, but I told him that I felt there was no guarantee that removing his gallbladder would prevent further episodes. He is aware that a laparoscopic cholecystectomy is not without potential risks. I explained operative risks as bleeding, bile leak, postoperative diarrhea, infection and bile ductal injury. I have recommended that he observe his symptoms and that upon discharge he return for [facility] at [facility], but at this point, I would not recommend proceeding with a laparoscopic or open cholecystectomy. CASTRO
--- NOTE | 2016-09-15 19:18 | NUR ---
Resp/Gonzalez Pt SpO2 mid to high 90s on RA. Up with PT, CGA in room. Gonzalez d/c'd, pt able to void post removal. + BM today. Denies pain. No fevers. Possible d/c tomorrow.
--- NOTE | 2016-09-15 19:28 | PCM.PNMED ---
Subjective Date of Service Sep 15, 2016 Subjective Mr. Quigley is a 65-year-old male with past medical history significant for obesity, hypertension, diabetes mellitus type II, chronic obstructive pulmonary disease, coronary artery disease, congestive heart failure, atrial fibrillation , mitral regurgitation, who is admitted to the CCU status post intubation due to septic shock. Patient was successfully extubated on 09/13/2016 without complication. Overnight: Patient required once again required Xanax for sleep secondary to anxiety. Patient received double dose of MiraLAX with no effect. Today: At time of interview patient has no specific complaints, denies chest pain shortness of breath headache nausea vomiting or any abdominal pain. He is concerned however that he has yet to have a bowel movement. Exam Vital Signs Vital Sign - Last Date Time Temp Pulse Resp B/P Pulse Ox O2 Delivery O2 Flow Rate FiO2 09/15/16 04:15 36.8 82 23 98/52 95 Nasal Cannula 2.00 09/13/16 11:30 40 Intake and Output 09/14/16 09/14/16 09/15/16 Cumulative From/Thru 15:00 23:00 07:00 09/11/16 19:50 - 09/15/16 06:25 Intake Total 1129 ml 693 ml 6692 ml Output Total 900 ml 1400 ml 6250 ml Balance 229 ml -707 ml 442 ml Intake Oral 820 ml 360 ml 1840 ml IV Total 309 ml 333 ml 4852 ml Output Urine Total 900 ml 1400 ml 6250 ml Exam General: Obese male Sitting up in bed in no acute distress, awake and alert answering questions appropriately well-developed, well-nourished, appropriately interactive HEENT: Normocephalic, atraumatic. External ears without defect. Neck: Supple with full range of motion. No jugular venous distension. Cardiovascular: Regular rate and rhythm with no murmurs appreciated. Pulmonary: Clear to auscultation bilaterally. No crackles or wheezing heard. No use of accessory muscles. Decreased air movement Abdomen: Bowel tones present. Soft, nontender to palpation 4 quadrants. Extremities: Mild lower extremity edema bilaterally Skin: Normal temperature, turgor, and texture Neurological: Cranial nerves grossly intact. Psychiatric: Normal mood and affect. Alert and oriented to person, place, and time. IVs and Medications Medications Reviewed: Medications were reviewed in detail Lab and Diagnostics Result Diagram: 4/4/17 0430 4/4/17 0430 Microbiology Nasopharyngeal PCR negative, sputum culture negative, MRSA negative, urine culture negative, but culture 2 no growth to date. X-Rays, CTs and MRIs . X-RAY CHEST ONE VIEW, PORTABLE IMPRESSION: Cardiomegaly with increased pulmonary vascularity suggestive of edema. In addition, there is increased retrocardiac opacity which could be represent a focal edema, atelectasis or potentially developing pneumonia. Dictated by: Leeanna Kruse M.D. on 09/11/2016 at 20:22 X-RAY CHEST ONE VIEW, PORTABLE IMPRESSION: Interval support lines as above. Persistent bilateral patchy opacities as noted. Dictated by: Leeanna Kruse M.D. on 09/11/2016 at 22:08 X-RAY CHEST ONE VIEW, PORTABLE IMPRESSION: No change in bibasilar pneumonia. Dictated by: Austin Schmitz M.D. on 09/13/2016 at 7:44 US ABDOMEN IMPRESSION: 1. Diffuse gallbladder wall thickening would be worrisome for acalculous cholecystitis in the appropriate clinical setting. Other differential diagnoses may include sequelae of acute hepatitis, congestive heart failure, underlying chronic liver disease, hypoproteinemia, or pancreatitis. 2. Splenic remote granulomatous disease. No significant discrepancy with preliminary [facility] report. Dictated by: Gadiel Will M.D. on 09/12/2016 at 6:58 US VENOUS LEG DUPLEX BILATERAL IMPRESSION: No sonographic evidence for lower extremity deep venous thrombosis. Dictated by: Gadiel Will M.D. on 09/12/2016 at 10:11 CT BRAIN WITHOUT CONTRAST IMPRESSION: No acute intracranial abnormalities. No significant discrepancy from preliminary [facility] report. Dictated by: Gadiel Will M.D. on 09/12/2016 at 7:40 CT ABDOMEN AND PELVIS WITHOUT CONTRAST IMPRESSION: 1. Constellation of findings suspicious for acalculous cholecystitis. 2. Moderate cardiomegaly, as well as trace basal right pleural effusion. 3. Mild sigmoid colon diverticulosis. 4. Small bilateral fat containing inguinal hernias. No significant discrepancy with preliminary [facility] report. Dictated by: Gadiel Will M.D. on 09/12/2016 at 8:50 Cardiac Echo Impressions Echocardiogram Report Interpretation Summary 1. Markedly dilated left ventricle with upper limits of normal wall thickness and globally reduced systolic function with an estimated EF of 25 to 30% 2. Mildly dilated right ventricle with low normal systolic function. 3. Severe mitral regurgitation into a dilated left atrium There is no old study for comparison Reading Physician:03:08 PM Additional Diagnostics US VENOUS LEG DUPLEX BILATERAL IMPRESSION: No sonographic evidence for lower extremity deep venous thrombosis. Dictated by: Gadiel Will M.D. on 09/12/2016 at 10:11 Approved by: Gadiel Will M.D. on 09/12/2016 at 10:13 Assessment & Plan 65yoM with past medical history of COPD, CAD, LBBB, HFrEF (30-35%), VT s/p AICD placement, severe mitral regurgitation, noted severe bradycardia into the 30s, with recent admission to [facility] for acute CHF exacerbation admitted following episode of respiratory distress while at home. Hospital day 5. 1. Acute hypoxic hypercapnic respiratory failure, present on admission, resolved - Respiratory failure prior to presentation at [facility] with intubation in the field by EMS on 09/11/16. - Extubated for 09/13/2016 - Downgraded from ICU 2. Shock, acute, present on admission, improving - Patient hemodynamically stable, afebrile lactic acidosis has resolved. White count remains elevated though significantly trended down overnight from 21.4- 11.2 on 09/15/2016 - Likely is septic given leukocytosis, with possible source gallbladder infection. Differential diagnosis includes cardiogenic shock given a known diagnosis of systolic congestive heart failure with likely sick sinus syndrome severe bradycardia. - Patient initially required pressor support with norepinephrine and inotropic support with dobutamine, the patient has been able to be titrated off blood pressure support - Limit IV fluids given discussed below in #4 due to significant systolic congestive heart failure with goal MAP >65. 3. Severe sepsis, acute, present on admission, resolved - Criteria met: leukocytosis, low temp, as well as severe lactic acidosis. Presumed GI source. - CT concerning for acalculous cholecystitis with significantly thickened gallbladder wall but no distention. - Continue doxycycline and meropenem per ID recommendations - Surgery consulted in ED and we appreciate their recommendations. - Interventional radiology consulted for possible percutaneous drain, not likely a candidate given significant elevation in INR without gallbladder distention. - Surgery consult to for possible cholecystectomy though will hold off at this point. 4. Acute on chronic systolic heart failure, present on admission, ongoing. - Records from [facility] show recent echo results with EF 30-35%. Echo from 09/12/16 shows EF of 20-25%. - Optimization of medications at discharge from [facility] 08/11/2016 - At this time will minimize IV fluids as much as possible. - Holding home furosemide 120 mg BID, metoprolol succinate 50 mg BID, spironolactone 25 mg daily, and losartan 50 mg BID as patient has been hypotensive. May slowly consider adding one med back at a time. - We will start conservatively reintroducing Lasix 20 mg IV - Continue to closely monitor fluid status 5. Acute exacerbation of chronic obstructive pulmonary disease, present on admission, improving. - Patient intubated in field however presentation in [facility] concerning for COPD exacerbation. - Continue albuterol q2PRN, DuoNeb QID scheduled. - Patient completed short course of Solu-medrol 125 mg IV. 6. Anion gap Metabolic acidosis, acute, present on admission, improving. - Secondary to lactic acid and KARELY. - Lactic acidosis resolved with KARELY improving. - Continue to monitor BMP 7. Acute renal failure, present on admission, improving. - Likely multifactorial with dehydration versus perceived prerenal given low cardiac output. - Avoid nephrotoxic medications, hold ARB. - Continue to monitor BMP. 8. Hepatic failure, acute, present on admission, improving. - Elevated transaminases, PT/INR, alkaline phosphatase and elevated bilirubin with elevated direct bilirubin consistent with hepatocellular injury more than biliary obstruction. - Differential diagnosis includes shock liver from hypoperfusion versus possible toxic acalculous cholecystitis, distant history of ETOH use, history of mild elevation in transaminases noted in [facility] records - Surgery and IR consulted for possible cholecystectomy - not surgical candidate at this time. - Continue to monitor CMP, PT/INR. 9. Right upper quadrant abdominal pain, acute, present on admission. Resolved - Project Structural Engineer phoned on September 12 noted recent complaints of ongoing abdominal pain with anorexia. Labs suggest possible biliary obstruction more likely hepatocellular injury. - Imaging is consistent with thickened gallbladder wall of acalculous cholecystitis on both CT and abdominal ultrasound - Surgery and IR consultation and patient is not a surgical candidate at this time. - Continue to monitor closely. 10. Elevated troponin of unknown significance, acute, present on admission, improving. - Mildly elevated and trended down in the setting of renal failure however patient does have a history of CAD, CHF, Sick Sinus Syndrome and AICD placement. - Continue to monitor and treat other conditions as above. 11. Hyperkalemia, acute, present on admission, improved. - Secondary to renal failure. - Treated with Kayexalate, calcium gluconate, bicarb, insulin/D10. - Hold spironolactone at this time. - Continue to monitor BMP. 12. Hematuria, unknown chronicity, present on admission. - Etiology unknown with no nephrolithiasis seen on imaging. Some evidence of possible UTI. - Gonzalez catheter currently in place - continue to monitor. 13. Possible disseminated intravascular coagulopathy, acute, present on admission - Likely secondary to severe sepsis. - Elevated d-dimer increased on subsequent draws with negative ultrasound for DVT however pulmonary embolus has not been ruled out, CT PE not possible given acute kidney injury. - Elevated INR consistent with liver failure, no records of chronic anticoagulation from [facility]. - Haptoglobin pending. 14. Hyperglycemia, acute, present on admission, improving. - A1c 6.3. - Insulin lispro with meals 15. History of severe bradycardia, chronic, present on admission. - Likely sick sinus syndrome. Records indicate that the patient was considered for a possible pacemaker to replace his AICD. - Will avoid beta blockers at this time. - Continue telemetry. Disposition: Anticipate discharge tomorrow, 09/16/2016, with plan for outpatient follow-up appointment and Physical Therapy, as needed. . Pain Evaluation: Adequate Pain Control GI Prophylaxis: H2 kaleigh VTE Prophylaxis: Sub-Q Heparin (Unfractionated) Resuscitation Status: CPR: Attempt Resuscitation Attending Statement The patient was seen and examined together with Dr. Vicente on 09/15/2016 and I agree with the history, exam and plan as outlined in the note above. . PATRICK VICENTE DO Sep 15, 2016 06:40 Reginald Mathtews MD Sep 16, 2016 08:11
[2016-09-16] VITALS (8 sets, daily range): BP systolic 101–113; BP diastolic 61–85; PULSE 63–95; RESP 16–20; O2SAT 96–97
--- NOTE | 2016-09-16 01:51 | NUR ---
transfer pt transferred to room 3008 via wheelchair, pt not on tele, pt uses 2L NC at home at HS here pt using occasionally, pt able to stand and void independently, pt denies any pain, gave pt xanax for anxiety, all belongings, chart and meds taken with pt .
[2016-09-16] MEDS: Meropenem Inj 1,000 MG in 0.9% Sodium Chloride 100 ML IV SCH ×3 (03:18→22:17)
[2016-09-16 05:36] LABS: BASOPHILS % (AUTO) 0.1 % (0-3)
[2016-09-16 05:38] LABS: EOSINOPHILS % (AUTO) 0 % (0-5); MONOCYTES % (AUTO) 29.9 % (4-12); Mean Corpuscular Hemoglobin 26.5 pg (27.0-35.0); Mean Corpuscular Volume 89.2 fL (81-100); NEUTROPHILS % (AUTO) 57.5 % (40-74); Platelet Count 61 bil/L (150-400)
[2016-09-16] MEDS: Albuterol-Ipratropium 3 mL Inhalation Solution NEB SCH ×4 (07:15→20:51)
[2016-09-16] MEDS: Insulin LISPRO 300 Unit/3 mL Inj SUBQ SCH ×4 (08:00→22:00)
[2016-09-16] MEDS: Famotidine Inj 20 MG in IV Premix 1 EACH IV SCH (08:37)
[2016-09-16] MEDS: Doxycycline Inj 100 MG in Dextrose 5% Minibag Plus 100 ML IV SCH (10:40)
--- NOTE | 2016-09-16 11:39 | PROG NOTE ---
[address] [address] PROGRESS NOTE PATIENT: LUIS LEON : 1950 MR#: [id number] ADMIT: 09/11/2016 JOB ID: [id number] DATE: 09/16/2016 INFECTIOUS DISEASE FOLLOW UP NOTE: REASON FOR FOLLOWUP: Septic shock. INTERVAL HISTORY: Overnight, the patient says he feels "great." He said he actually feels better than his premorbid state of health, and at this point, absolutely denies fevers, chills, headache, sore throat, cough, shortness of breath, chest pain, nausea, vomiting, diarrhea or dysuria. PHYSICAL EXAMINATION: Reveals a gentleman who is afebrile, has been throughout this now six day hospital stay. Temperature 36.7 this morning. Pulse 84, respiratory rate 16, blood pressure 110/61. He is saturating well on room air and in no acute distress. Eyes without conjunctivitis. Oral cavity without thrush or pharyngitis. Lungs: A few crackles especially at the left base. Cardiac tones without new murmur. Abdomen: Soft, nontender. Slightly distended. No skin rash. LABORATORIES: Include white count 9200, which is the first time it has been normal having started off at 41,000 five days ago. His hematocrit 38, platelets 61, and still dropping a bit. Differential white blood count known includes 30% monocytes interestingly, 57% segs. Creatinine is down to 1.23. His transaminases which had been very elevated continue to fall. AST is down to 252. ALT down to 1214. Alk phos 279, albumin 3.1. Procalcitonin down to 0.33 and those all are moving in the right direction. Hep C is negative. Micro studies include negative blood cultures, negative MRSA PCR, negative sputum culture, negative nasopharyngeal PCR for viruses and a negative MRSA screen. IMAGING: Includes a HIDA scan which was normal as was mentioned yesterday. IMPRESSION: This is a strange case of a gentleman who says he has had three episodes of septic shock within the last several months. This most recent one was associated with a dramatic leukocytosis over 40,000. The patient was started on broad-spectrum antibiotics and has now not only made it out of the unit, but is up on the hogan feeling absolutely great and talking about going home in the next day or two. At least one of his three recent hospitalizations at an outside hospital was thought to be due to pneumonia. At this point, it is very unclear to me where the sepsis arose from, though one would think the abdomen but not from the gallbladder. RECOMMENDATIONS: 1. Will continue with meropenem and doxy to finish a one week course which will reply take us through tomorrow. 2. Once the patient finishes the antibiotics, he could probably be discharged but at outpatient followup he should be thoroughly re-evaluated and I would wonder about doing another colonoscopy as he has not had one in five years. It might also be reasonable, at some point, to check a contrast oral and IV contrast CT of the chest, abdomen and pelvis once again, though I think that unfortunately would probably be low yield. It may also be reasonable to check quantitative immunoglobulins and complement levels in this perplexing but steadily improving gentleman.
--- NOTE | 2016-09-16 13:58 | NUR ---
Ambulate w/Nsg Pt is released to ambulate w/nsg 2-3x/week; PT will cont to see 2x/week to continue progression of stair navigation.
--- NOTE | 2016-09-16 14:17 | NUR ---
Social Work: Readiness for d/c Data: Pt is on day 5 of hospitalization. EMR reviewed. Pt discussed in rounds. MD states pt likely to d/c in 1-2 days. No d/c planning needs anticipated at this time. WATERSHED TENDER will continue to follow for d/c planning needs. Assessment: Pt who is independent at baseline. Plan: Pt will d/c home via POV when medically stable. No d/c planning needs anticipated at this time. WATERSHED TENDER will continue to follow for d/c planning needs. DRAKE Kumar
--- NOTE | 2016-09-16 14:32 | NUR ---
Respiratory, Activity Pt ambulating to bathroom SBA. Spent most of shift up in chair. O2 sats high 90's on RA.
--- NOTE | 2016-09-16 15:09 | PCM.PNMED ---
Subjective Date of Service Sep 16, 2016 Subjective siting up in chair.Eating OK, no diarrhea, cote out, ambulating, feeling better. No specific complaints. Chart reviewed. Exam Vital Signs Vital Sign - Last Date Time Temp Pulse Resp B/P Pulse Ox O2 Delivery O2 Flow Rate FiO2 09/16/16 13:56 36.7 95 18 113/85 97 Room Air 09/15/16 08:29 1.50 09/13/16 11:30 40 Intake and Output 09/15/16 09/15/16 09/16/16 Cumulative From/Thru 15:00 23:00 07:00 09/11/16 19:50 - 09/16/16 06:32 Intake Total 1403 ml 760 ml 8855 ml Output Total 700 ml 1020 ml 7970 ml Balance 703 ml -260 ml 885 ml Intake Oral 1120 ml 720 ml 3680 ml IV Total 283 ml 40 ml 5175 ml Output Urine Total 700 ml 1020 ml 7970 ml # Voids 4 4 # Bowel Movements 1 0 1 Exam Eyes; johnie, eom intact ENMT; no oral lesions, well hydrated, right CVL CV; regular, soft systolic murmur, no JVD, Resp; coarse but otherwise clear GI; soft, non tender, non acute Skin; multiple bruised areas, no rash Neuro; 2-12 intact, no obvious motor or sensory defects Lab and Diagnostics Result Diagram: 09/16/16 0526 09/16/16 0526 Microbiology Nasopharyngeal PCR negative, sputum culture negative, MRSA negative, urine culture negative, but culture 2 no growth to date. X-Rays, CTs and MRIs . X-RAY CHEST ONE VIEW, PORTABLE IMPRESSION: Cardiomegaly with increased pulmonary vascularity suggestive of edema. In addition, there is increased retrocardiac opacity which could be represent a focal edema, atelectasis or potentially developing pneumonia. Dictated by: Leeanna Kruse M.D. on 09/11/2016 at 20:22 X-RAY CHEST ONE VIEW, PORTABLE IMPRESSION: Interval support lines as above. Persistent bilateral patchy opacities as noted. Dictated by: Leeanna Kruse M.D. on 09/11/2016 at 22:08 X-RAY CHEST ONE VIEW, PORTABLE IMPRESSION: No change in bibasilar pneumonia. Dictated by: Austin Schmitz M.D. on 09/13/2016 at 7:44 US ABDOMEN IMPRESSION: 1. Diffuse gallbladder wall thickening would be worrisome for acalculous cholecystitis in the appropriate clinical setting. Other differential diagnoses may include sequelae of acute hepatitis, congestive heart failure, underlying chronic liver disease, hypoproteinemia, or pancreatitis. 2. Splenic remote granulomatous disease. No significant discrepancy with preliminary [facility] report. Dictated by: Gadiel Will M.D. on 09/12/2016 at 6:58 US VENOUS LEG DUPLEX BILATERAL IMPRESSION: No sonographic evidence for lower extremity deep venous thrombosis. Dictated by: Gadiel Will M.D. on 09/12/2016 at 10:11 CT BRAIN WITHOUT CONTRAST IMPRESSION: No acute intracranial abnormalities. No significant discrepancy from preliminary [facility] report. Dictated by: Gadiel Will M.D. on 09/12/2016 at 7:40 CT ABDOMEN AND PELVIS WITHOUT CONTRAST IMPRESSION: 1. Constellation of findings suspicious for acalculous cholecystitis. 2. Moderate cardiomegaly, as well as trace basal right pleural effusion. 3. Mild sigmoid colon diverticulosis. 4. Small bilateral fat containing inguinal hernias. No significant discrepancy with preliminary [facility] report. Dictated by: Gadiel Will M.D. on 09/12/2016 at 8:50 Cardiac Echo Impressions Echocardiogram Report Interpretation Summary 1. Markedly dilated left ventricle with upper limits of normal wall thickness and globally reduced systolic function with an estimated EF of 25 to 30% 2. Mildly dilated right ventricle with low normal systolic function. 3. Severe mitral regurgitation into a dilated left atrium There is no old study for comparison Reading Physician:03:08 PM Additional Diagnostics US VENOUS LEG DUPLEX BILATERAL IMPRESSION: No sonographic evidence for lower extremity deep venous thrombosis. Dictated by: Gadiel Will M.D. on 09/12/2016 at 10:11 Approved by: Gadiel Will M.D. on 09/12/2016 at 10:13 Assessment & Plan 65yoM with past medical history of COPD, CAD, LBBB, HFrEF (30-35%), VT s/p AICD placement, severe mitral regurgitation, noted severe bradycardia into the 30s, with recent admission to [facility] for acute CHF exacerbation admitted following episode of respiratory distress while at home. Hospital day 5. 1. Acute hypoxic hypercapnic respiratory failure, present on admission, resolved - Respiratory failure prior to presentation at [facility] with intubation in the field by EMS on 09/11/16. - Extubated for 09/13/2016 - secondary to sepsis 2. Septic Shock, acute, present on admission, resolved - Patient initially required pressor support with norepinephrine and inotropic support with dobutamine, the patient has been able to be titrated off blood pressure support - Limit IV fluids given discussed below in #4 due to significant systolic congestive heart failure with goal MAP >65. 3. Severe sepsis, acute, present on admission, resolved - Criteria met: leukocytosis, low temp, as well as severe lactic acidosis. Presumed GI source of infection 4.Probable GI source of Infection causing sever sepsis and septic shock, POA, active - liver scan normal uptake - CT abdo pelvis = diverticulosis, possible cholycystitis - Continue doxycycline and meropenem per ID recommendations, thru tomorrow, one week course - Sourse of infection likely from a diverticular source or other intraabdominal source - Dr. Buckley recomends a comprehensive ID consult as and out patient as this has happened several time before. 4. Acute on chronic systolic heart failure, present on admission, stable. - Records from [facility] show recent echo results with EF 30-35%. Echo from 09/12/16 shows EF of 20-25%. - Optimization of medications at discharge from [facility] 08/11/2016 - Holding home furosemide 120 mg BID, metoprolol succinate 50 mg BID, spironolactone 25 mg daily, and losartan 50 mg BID as patient has been hypotensive. May slowly consider adding one med back at a time. - We will start conservatively reintroducing Lasix 20 mg IV - Continue to closely monitor fluid status 5. Acute exacerbation of chronic obstructive pulmonary disease, present on admission, improving. - Patient intubated in field however presentation in [facility] concerning for COPD exacerbation. - Continue albuterol q2PRN, DuoNeb QID scheduled. - Patient completed short course of Solu-medrol 125 mg IV. 6. Anion gap Metabolic acidosis, acute, present on admission, improving. - Secondary to lactic acid and KARELY. - Lactic acidosis resolved with KARELY improving. - Continue to monitor BMP 7. Acute renal failure, present on admission, improving. - Likely multifactorial with dehydration versus perceived prerenal given low cardiac output. - Avoid nephrotoxic medications, hold ARB. - Continue to monitor BMP. 8. Hepatic failure, acute, present on admission, improving. - Elevated transaminases, PT/INR, alkaline phosphatase and elevated bilirubin with elevated direct bilirubin consistent with hepatocellular injury more than biliary obstruction. - Differential diagnosis includes shock liver from hypoperfusion versus possible toxic acalculous cholecystitis, distant history of ETOH use, [facility] of mild [facility] - Surgery and IR consulted for possible cholecystectomy - not surgical candidate at this time. - Continue to monitor CMP, PT/INR. -base line not known 9. Right upper quadrant abdominal pain, acute, present on admission. Resolved - Milling Supervisor phoned on September 12 noted recent complaints of ongoing abdominal pain with anorexia. Labs suggest possible biliary obstruction more likely hepatocellular injury. - Imaging is consistent with thickened gallbladder wall of acalculous cholecystitis on both CT and abdominal ultrasound - Surgery and IR consultation and patient is not a surgical candidate at this time. - Continue to monitor closely. 10. Elevated troponin of unknown significance, acute, present on admission, improving. - Mildly elevated and trended down in the setting of renal failure however patient does have a history of CAD, CHF, Sick Sinus Syndrome and AICD placement. - Continue to monitor and treat other conditions as above. 12. Hematuria, unknown chronicity, present on admission. - Etiology unknown with no nephrolithiasis seen on imaging. Some evidence of possible UTI. - Cote catheter currently in place - continue to monitor. 13. Possible disseminated intravascular coagulopathy, acute, present on admission. resolved - Likely secondary to severe sepsis. - Elevated d-dimer increased on subsequent draws with negative ultrasound for DVT however pulmonary embolus has not been ruled out, CT PE not possible given acute kidney injury. - Elevated INR consistent with liver failure, no records of chronic anticoagulation from [place]. - Haptoglobin pending. 14. Hyperglycemia, acute, present on admission, improving. - A1c 6.3. - Insulin lispro with meals 15. History of severe bradycardia, chronic, present on admission. - Likely sick sinus syndrome. Records indicate that the patient was considered for a possible pacemaker to replace his AICD. - Will avoid beta blockers at this time. - Continue telemetry. Disposition: Anticipate discharge tomorrow, 09/16/2016, with plan for outpatient follow-up appointment and Physical Therapy, as needed. . GI Prophylaxis: H2 k[place] VTE Prophylaxis: Sub-Q Heparin (Unfractionated) Resuscitation Status: CPR: Attempt Resuscitation Grisel Jain MD Sep 16, 2016 15:09
[2016-09-17 02:19] VITALS: BP 114/80; PULSE 69; RESP 18; O2SAT 98
--- NOTE | 2016-09-17 05:07 | NUR ---
ACTIVITY Pt slept most of shift after receiving Xanax at HS. No complaints of pain or SOB, on 2L NC satting mid 90s. Audible expiratory wheezes heard in upper airways. VSS. Hourly rounding in place.
[2016-09-17 05:13] VITALS: BP 109/74; PULSE 70; RESP 18; O2SAT 97
[2016-09-17] MEDS: Meropenem Inj 1,000 MG in 0.9% Sodium Chloride 100 ML IV SCH ×2 (06:09→14:08)
[2016-09-17 06:26] LABS: BASOPHILS % (AUTO) 0 % (0-3); EOSINOPHILS % (AUTO) 0.2 % (0-5); Mean Corpuscular Volume 88.2 fL (81-100); NEUTROPHILS % (AUTO) 56.7 % (40-74); Platelet Count 58 bil/L (150-400)
[2016-09-17] MEDS: Albuterol-Ipratropium 3 mL Inhalation Solution NEB SCH ×3 (07:38→16:16)
[2016-09-17 07:40] VITALS: PULSE 86; RESP 20; O2SAT 95
[2016-09-17] MEDS: Insulin LISPRO 300 Unit/3 mL Inj SUBQ SCH ×2 (08:00→12:00)
--- NOTE | 2016-09-17 10:18 | NUR ---
Social Work: Readiness for d/c Data: Pt is on day 6 of hospitalization. EMR reviewed, PT recommending HH. Pt discussed in rounds. MD states pt likely to d/c today. TELETYPE TECHNICIAN met with pt, explained HH services to him. Pt declines HH at this time. Pt states he does have a PCP, Dr. Parisi. Pt states he has a friend who will pick him up at d/c. No further d/c planning needs anticipated at this time. TELETYPE TECHNICIAN will continue to follow if needs arise. Assessment: Pt who has caregiving at baseline. Plan: Pt will d/c home via POV likely today. Pt declining HH at this time. No further d/c planning needs anticipated at this time. TELETYPE TECHNICIAN will continue to follow if needs arise. DRAKE Kumar
[2016-09-17 10:24] VITALS: BP 126/81; PULSE 90; RESP 18; O2SAT 100
--- NOTE | 2016-09-17 14:34 | PCM.DIMED ---
Discharge Instructions Date of Service Sep 17, 2016 Dates of Hospitalization Sep 11, 2016 at 22:51 Discharge Diagnosis Discharge Diagnosis 1. Acute hypoxic hypercapnic respiratory failure, present on admission, resolved 2. Septic Shock, acute, present on admission, resolved 3. Severe sepsis, acute, present on admission, resolved 4.Probable GI source of Infection causing sever sepsis and septic shock, POA, active 4. Acute on chronic systolic heart failure, present on admission, stable. 5. Acute exacerbation of chronic obstructive pulmonary disease, present on admission, improving. 6. Anion gap Metabolic acidosis, acute, present on admission, resolved 7. Acute renal failure, present on admission, improving. 8. Hepatic failure, acute, present on admission, improving. 9. Right upper quadrant abdominal pain, acute, present on admission. Resolved 10. Elevated troponin of unknown significance, acute, present on admission, chronic. 12. Hematuria, unknown chronicity, present on admission, resolved 13. Possible disseminated intravascular coagulopathy, acute, present on admission. resolved 14. Hyperglycemia, acute, present on admission, improving. 15. History of severe bradycardia, chronic, present on admission. Diet Low fat, Low Sodium, Heart Healthy Activity Limited until seen by PCP Patient Instructions Follow-up plan We would like you to follow u[p with your primary care provider as soon as possible. We would also in several weeks see an Infectious Disease specialist for a "comprehensive" evaluation for these recurrent infection. Grisel Jain MD Sep 17, 2016 14:34
--- NOTE | 2016-09-17 14:43 | PCM.DC.MED ---
Discharge Summary Date of Service Sep 17, 2016 Dates of Hospitalization Date of Hospital Admission Sep 11, 2016 at 22:51 Date of Discharge: Sep 17, 2016 Providers: Admitting Physician: Annie Hutchinson DO Primary Care Physician: Trey Attending Physician: Annie Hutchinson DO Diagnosis at Time of Discharge Diagnosis at Time of Discharge 1. Acute hypoxic hypercapnic respiratory failure, present on admission, resolved 2. Septic Shock, acute, present on admission, resolved 3. Severe sepsis, acute, present on admission, resolved 4.Probable GI source of Infection causing sever sepsis and septic shock, POA, active 4. Acute on chronic systolic heart failure, present on admission, stable. 5. Acute exacerbation of chronic obstructive pulmonary disease, present on admission, improving. 6. Anion gap Metabolic acidosis, acute, present on admission, resolved 7. Acute renal failure, present on admission, improving. 8. Hepatic failure, acute, present on admission, improving. 9. Right upper quadrant abdominal pain, acute, present on admission. Resolved 10. Elevated troponin of unknown significance, acute, present on admission, chronic. 12. Hematuria, unknown chronicity, present on admission, resolved 13. Possible disseminated intravascular coagulopathy, acute, present on admission. resolved 14. Hyperglycemia, acute, present on admission, improving. 15. History of severe bradycardia, chronic, present on admission. Consultations PATIENT: LUIS QUIGLEY : 1950 DATE: 09/16/2016 INFECTIOUS DISEASE FOLLOW UP NOTE: REASON FOR FOLLOWUP: Septic shock. INTERVAL HISTORY: Overnight, the patient says he feels "great." He said he actually feels better than his premorbid state of health, and at this point, absolutely denies fevers, chills, headache, sore throat, cough, shortness of breath, chest pain, nausea, vomiting, diarrhea or dysuria. PHYSICAL EXAMINATION: Reveals a gentleman who is afebrile, has been throughout this now six day hospital stay. Temperature 36.7 this morning. Pulse 84, respiratory rate 16, blood pressure 110/61. He is saturating well on room air and in no acute distress. Eyes without conjunctivitis. Oral cavity without thrush or pharyngitis. Lungs: A few crackles especially at the left base. Cardiac tones without new murmur. Abdomen: Soft, nontender. Slightly distended. No skin rash. LABORATORIES: Include white count 9200, which is the first time it has been normal having started off at 41,000 five days ago. His hematocrit 38, platelets 61, and still dropping a bit. Differential white blood count known includes 30% monocytes interestingly, 57% segs. Creatinine is down to 1.23. His transaminases which had been very elevated continue to fall. AST is down to 252. ALT down to 1214. Alk phos 279, albumin 3.1. Procalcitonin down to 0.33 and those all are moving in the right direction. Hep C is negative. Micro studies include negative blood cultures, negative MRSA PCR, negative sputum culture, negative nasopharyngeal PCR for viruses and a negative MRSA screen. IMAGING: Includes a HIDA scan which was normal as was mentioned yesterday. IMPRESSION: This is a strange case of a gentleman who says he has had three episodes of septic shock within the last several months. This most recent one was associated with a dramatic leukocytosis over 40,000. The patient was started on broad-spectrum antibiotics and has now not only made it out of the unit, but is up on the hogan feeling absolutely great and talking about going home in the next day or two. At least one of his three recent hospitalizations at an outside hospital was thought to be due to pneumonia. At this point, it is very unclear to me where the sepsis arose from, though one would think the abdomen but not from the gallbladder. RECOMMENDATIONS: 1. Will continue with meropenem and doxy to finish a one week course which will reply take us through tomorrow. 2. Once the patient finishes the antibiotics, he could probably be discharged but at outpatient followup he should be thoroughly re-evaluated and I would wonder about doing another colonoscopy as he has not had one in five years. It might also be reasonable, at some point, to check a contrast oral and IV contrast CT of the chest, abdomen and pelvis once again, though I think that unfortunately would probably be low yield. It may also be reasonable to check quantitative immunoglobulins and complement levels in this perplexing but steadily improving gentleman. Jj Buckley MD 09/16/16 1108PATIENT: LUIS QUIGLEY : 1950 MR#: [id number] ADMIT: 09/11/2016 JOB ID: [id number] DATE OF SERVICE: 09/13/2016 REASON FOR CONSULT: Septic shock. HISTORY OF PRESENT ILLNESS: The patient is a 65-year-old gentleman with an extensive past medical history including severe organic heart disease, as well as some COPD, recurrent pneumonias, and diabetes. He was admitted in May to [facility] apparently with pneumonia, as well as in July to the [facility] with CHF exacerbation and possible COPD-related issues. He was then back at home and seemed to be doing reasonably okay, though he has chronic shortness of breath and limited exercise capacity due to his underlying heart and lung disease. It is unclear exactly what precipitated his admission through the emergency department late on the , but apparently, his caregiver and others found him increasingly weak and short of breath. He was found to be profoundly tachypneic and hypotensive, and in the ER, was noted to be in respiratory failure requiring intubation, as well as ongoing renal failure with severe hepatic injury, profound leukocytosis, and severe lactic acidosis. He was critically ill upon admission in the customs house broker hours, right around midnight, September 11September 12. Initially it was felt he likely had septic shock of unknown source superimposed upon his underlying heart and lung disease and he was aggressively treated with broad-spectrum antibiotics including azithromycin, ertapenem and a single dose of vancomycin. He has had a rapid improvement over the past 36 hours, which is really quite surprising in that he is now being rapidly weaned, though he remains on the ventilator, and his hypotension has completely vanished, and this morning, the last of pressor agents were successfully stopped without any untoward effect. I reviewed extensive notes from the [facility] and discussed this case in person with Dr. Rivera on the hogan this morning, as well as respiratory therapy and nursing. The patient is awake enough, though he is still intubated, to actually obtain some yes and no question history. The patient tells me that in the couple days leading up to his admission back on Wednesday night, he was not having any headache, visual change or sore throat. He also states that he did not have any cough that he can recall nor did he have any fever or chills before he came in. He specifically denies having any abdominal pain whatsoever and also denies nausea, vomiting, or diarrhea prior to admission. Somewhat surprisingly, he tells me he was having severe dysuria prior to admission, though this has not figured much in the differential diagnosis since admission, perhaps because he had a negative urine culture. He says this morning he is feeling much improved and would like to be extubated. Beyond that, I cannot get too much history as we are just asking yes and no questions. PAST MEDICAL HISTORY: 1. COPD. 2. Organic heart disease. a. Coronary artery disease. b. Left bundle branch block. c. Congestive heart failure with ejection fraction about 25%. d. AICD placed and occasionally fires. e. Severe mitral regurgitation on the basis of dilated cardiomyopathy. 3. History of recent pneumonia in May. 4. PTSD. 5. Prostate cancer. 6. Diabetes mellitus. 7. Peripheral neuropathy and it is unknown to me, based on chart review, whether this is due to diabetes or something else. 8. Hypertension. 9. Hyperlipidemia. SOCIAL HISTORY: The patient lives with a caregiver. He tells me he was a smoker, though I cannot ask him exactly when because he is intubated, but apparently he has quit and he apparently does not drink, though I cannot figure out because of the difficulties in speaking to him whether he is an ex- drinker or not. He did serve in the [employer] and that was clear. FAMILY HISTORY: Cannot be obtained as he is intubated, sedated, and really having some trouble communicating. REVIEW OF SYSTEMS: Was done to the degree it was possible and those positives and negatives are included in the history of the present illness above. Otherwise, we are not able to go into too much detail because the patient is intubated, still a bit sedated and not able to supply much more data other than he did tell me that he can walk short distances with a walker. PHYSICAL EXAMINATION: Reveals a seriously ill gentleman lying supine in the ICU. When he first came in, he was afebrile and he remains that way. Temp 36.7, pulse currently around 80, regular, with some PVCs shown on the monitor. Blood pressure 101/57, and he is off all vasopressor agents as well as dobutamine, saturating 95% on 40 of FiO2, 5 of PEEP, and he is currently undergoing a pressure support trial and doing pretty well. He is awake and able to respond somewhat to questions. His head is without trauma. Eyes without conjunctivitis or scleral icterus. Nose appears normal. Oral endotracheal tube, oral gastric tube in good position. His neck is supple without adenopathy. He has many lines including a right IJ CVP, bilateral antecubital fossa, peripheral IVs, a left radial A-line, and a Gonzalez catheter. The patient's lungs are notable for some scattered rales and rhonchi, especially rhonchi and especially at the left base. Cardiac tones regular rate and rhythm with a 2/6 systolic murmur. The abdomen is soft and nontender. There is no appreciable organomegaly and no tenderness. I put tremendous pressure in the right upper quadrant and the patient absolutely states there is no tenderness there, nor has there been in recent days, according to the patient. He has no suprapubic fullness. He has a Gonzalez catheter present. Penis and scrotum appear normal. No inguinal adenopathy. His joints are without any evidence of synovitis. He has about 2+ edema below the knees, some venous stasis changes bilaterally, but no overt skin breakdown or cellulitis on the extremities. Neurologically, the patient can move everything and he seems to respond appropriately to questions, though it is difficult to tell, of course, with him still intubated but does seem intact. LABORATORIES: Include a white count which was a striking 41,000, with left shift, when he came in. It is now down to 28,000 after a day and a half with 9% bands, which is actually slowly improving. His platelet count is 100,000. When he came in, it was 131. The patient's creatinine, when he started a day and a half ago, 2.45. It is now down a full point, to 1.74. Bicarb was as low was 15 on admission, now 21. Lactic acid 2. Total bilirubin 2.5. AST 3800 and that is improved over 6967 when he came in. His alk phos 287. It was as high as 433 when he came in. BNP 2528. It was 11,800 when he came in, day and a half ago. Procalcitonin 0.18 on admission; now 0.95. Urinalysis on admission: 11-50 white cells, 11-50 red cells. Hep C antibody negative. Micro studies include negative blood cultures on admission, negative urine culture, negative MRSA screen, negative respiratory culture with basically rare polys and no growth actually on his respiratory culture, and his nasopharyngeal PCR for virus is negative. IMAGING: From admission, includes a chest x-ray which showed cardiomegaly and what appears to be a possible retrocardiac infiltrate, though it is difficult to tell as he likely has some CHF. Today's chest x-ray continues to show left greater than right bibasilar opacities. Abdominal pelvic CT scan was done, suspicious for acalculous cholecystitis, as the gallbladder has increased wall thickening and some sludge. The abdominal ultrasound is interesting in that it shows diffuse gallbladder wall thickening, which the radiologist opines could also be due to acute hepatitis or CHF. There is also evidence of granulomatous disease, within the spleen, which is likely old. IMPRESSION: It seems clear that the decline which occurred on September 10 and resulting in profound shock, lactic acidosis, and profound leukocytosis in this patient with attendant renal and hepatic injury was due to sepsis. At this point, however, I am uncertain as to the source. Being able to get some history from the patient today is very helpful and he specifically denies any abdominal pain, nausea, vomiting, or diarrhea prior to admission, and his physical exam reveals a completely benign abdomen with absolutely no right upper quadrant tenderness. This would be odd in terms of acalculous cholecystitis and I also wonder if whether the gallbladder wall thickness we see on the ultrasound and CT of the abdomen is just due to heart failure and/or his acute hepatic injury due to his shock. Interestingly, the patient readily answers questions about his urinary tract in a positive way and states that he had severe dysuria just prior to admission, raising the possibility of urosepsis. His urinalysis on admission was certainly not normal with pyuria and hematuria, but the confusing fact there is that his urine culture has been negative, and his CT scan did not show any changes consistent with hydronephrosis or pyelonephritis. Overall, I think this patient had septic shock, perhaps of a urinary source, and I am not convinced that he has acalculous cholecystitis. He is rapidly improving on a combination of azithromycin and meropenem, and I would be inclined to continue those antibiotics. Meropenem is certainly our broadest spectrum antibiotic and I do not like to use it too much empirically, but here we have a patient who has been admitted at least twice in the last three months to neighboring hospitals and I think it is probably reasonable as broad-spectrum coverage. RECOMMENDATIONS: 1. Hopefully, the patient will be extubated later today and this was discussed with Respiratory Therapy. 2. I would continue with azithromycin and meropenem, planning for a total course of seven days or so, if we do not find any positive cultures or obvious explanations for this apparent septic shock. 3. If we continue to pursue the gallbladder pathology angle, I think it would be reasonable to get a HIDA scan tomorrow as the dust settles and hopefully he will be extubated. 4. Will continue to monitor many parameters including procalcitonin, LFTs, and renal function in this obviously critically ill gentleman. 5. This case discussed in detail with the ICU team, including Dr. Rivera in person. Jj Buckley MD 09/13/16 1046 Procedures XRay, CTs & MRIs . X-RAY CHEST ONE VIEW, PORTABLE IMPRESSION: Cardiomegaly with increased pulmonary vascularity suggestive of edema. In addition, there is increased retrocardiac opacity which could be represent a focal edema, atelectasis or potentially developing pneumonia. Dictated by: Leeanna Kruse M.D. on 09/11/2016 at 20:22 X-RAY CHEST ONE VIEW, PORTABLE IMPRESSION: Interval support lines as above. Persistent bilateral patchy opacities as noted. Dictated by: Leeanna Kruse M.D. on 09/11/2016 at 22:08 X-RAY CHEST ONE VIEW, PORTABLE IMPRESSION: No change in bibasilar pneumonia. Dictated by: Austin Schmitz M.D. on 09/13/2016 at 7:44 US ABDOMEN IMPRESSION: 1. Diffuse gallbladder wall thickening would be worrisome for acalculous cholecystitis in the appropriate clinical setting. Other differential diagnoses may include sequelae of acute hepatitis, congestive heart failure, underlying chronic liver disease, hypoproteinemia, or pancreatitis. 2. Splenic remote granulomatous disease. No significant discrepancy with preliminary [facility] report. Dictated by: Gadiel Will M.D. on 09/12/2016 at 6:58 US VENOUS LEG DUPLEX BILATERAL IMPRESSION: No sonographic evidence for lower extremity deep venous thrombosis. Dictated by: Gadiel Will M.D. on 09/12/2016 at 10:11 CT BRAIN WITHOUT CONTRAST IMPRESSION: No acute intracranial abnormalities. No significant discrepancy from preliminary [facility] report. Dictated by: Gadiel Will M.D. on 09/12/2016 at 7:40 CT ABDOMEN AND PELVIS WITHOUT CONTRAST IMPRESSION: 1. Constellation of findings suspicious for acalculous cholecystitis. 2. Moderate cardiomegaly, as well as trace basal right pleural effusion. 3. Mild sigmoid colon diverticulosis. 4. Small bilateral fat containing inguinal hernias. No significant discrepancy with preliminary [facility] report. Dictated by: Gadiel Will M.D. on 09/12/2016 at 8:50 Cardiac Echo Impression Echocardiogram Report Interpretation Summary 1. Markedly dilated left ventricle with upper limits of normal wall thickness and globally reduced systolic function with an estimated EF of 25 to 30% 2. Mildly dilated right ventricle with low normal systolic function. 3. Severe mitral regurgitation into a dilated left atrium There is no old study for comparison Reading Physician:03:08 PM Other Diagnostics US VENOUS LEG DUPLEX BILATERAL IMPRESSION: No sonographic evidence for lower extremity deep venous thrombosis. Dictated by: Gadiel Will M.D. on 09/12/2016 at 10:11 Approved by: Gadiel Will M.D. on 09/12/2016 at 10:13 Brief History 65yoM with past medical history of COPD, CAD, LBBB, HFrEF (30-35%), VT s/p AICD placement, severe mitral regurgitation with recent admission [facility] admitted following episode of respiratory distress while at home. History is limited and obtained from caregiver and roommate who came with patient from home. As per caregiver. Patient with recent admission to [facility] [place] for a "heart issue" and pneumonia. His medications had been adjusted and an increase was made in furosemide. Since discharge patient has been fatigued with episodes of increased fatigue. He has been spending a good amount of time in his recliner due to fatigue and orthopnea. Over the past three days he has been mobile however increased fatigue the day of admission. Inability to sleep has also been noted with patient stating "something doesn't feel right". The day of admission patient was at baseline with fatigue. His caregiver left for a short trip to [place] and returned upon request of her who was concerned for Mr. Quigley's wellbeing. On arrival patient was short of breath with an ashen tone to his skin. EMS was called and while as per report patient was hypertensive in field after intubation and arrival to [facility] he was markedly hypotensive. No complaints have been noted by roommate regarding fevers, chills , nausea, vomiting, changes in bowel movements or urination. After arrival to CCU patient began opening eyes and endorsed having abdominal pain prior to admission but did shake his head answering no to new onset diarrhea. Mr. Quigley's most recent admission was at the [facility] in [place] (documentation reviewed and in paper chart). Date of admission 08/06/2016 with discharge 2016. Patient presented with acute dyspnea on exertion without hypoxia. Due to a history of VT his ICD was interrogated and found to have VT associated with a syncopal episode 08/01/2016. Some concerns were expressed about medication optimization and upgrade of pacemaker to a dual chamber. Repeat ECHO was planned for 10/2016. Discharge weight 242lbs. (Admit at [facility] 252.56lbs). Hospital Course 65yoM with past medical history of COPD, CAD, LBBB, HFrEF (30-35%), VT s/p AICD placement, severe mitral regurgitation, noted severe bradycardia into the 30s, with recent admission to [facility] for acute CHF exacerbation admitted following episode of respiratory distress while at home. Hospital day 5. 1. Acute hypoxic hypercapnic respiratory failure, present on admission, resolved - Respiratory failure prior to presentation at [facility] with intubation in the field by EMS on 09/11/16. - Extubated for 09/13/2016 - secondary to sepsis 2. Septic Shock, acute, present on admission, resolved - Patient initially required pressor support with norepinephrine and inotropic support with dobutamine, the patient has been able to be titrated off blood pressure support - Limit IV fluids given discussed below in #4 due to significant systolic congestive heart failure with goal MAP >65. 3. Severe sepsis, acute, present on admission, resolved - Criteria met: leukocytosis, low temp, as well as severe lactic acidosis. Presumed GI source of infection 4.Probable GI source of Infection causing sever sepsis and septic shock, POA, active - liver scan normal uptake - CT abdo pelvis = diverticulosis, possible cholycystitis - Continue doxycycline and meropenem per ID recommendations, thru tomorrow, one week course - Sourse of infection likely from a diverticular source or other intraabdominal source - Dr. Buckley recomends a comprehensive ID consult as and out patient as this has happened several time before. Please see his consultation notes included here 4. Acute on chronic systolic heart failure, present on admission, stable. - Records from [facility] show recent echo results with EF 30-35%. Echo from 09/12/16 shows EF of 20-25%. - Optimization of medications at discharge from [facility] 08/11/2016 - Continue to closely monitor fluid status 5. Acute exacerbation of chronic obstructive pulmonary disease, present on admission, improving. - Patient intubated in field however presentation in [facility] concerning for COPD exacerbation. - extubated - Patient completed short course of Solu-medrol 125 mg IV. 6. Anion gap Metabolic acidosis, acute, present on admission, resolved. - Secondary to lactic acid and KARELY. - Lactic acidosis resolved with KARELY improving. 7. Acute renal failure, present on admission, improving. - Likely multifactorial with dehydration versus perceived prerenal given low cardiac output. - Avoid nephrotoxic medications, hold ARB. 8. Hepatic failure, acute, present on admission, improving. - Elevated transaminases, PT/INR, alkaline phosphatase and elevated bilirubin with elevated direct bilirubin consistent with hepatocellular injury more than biliary obstruction. - Differential diagnosis includes shock liver from hypoperfusion versus possible toxic acalculous cholecystitis, distant history of ETOH use, history of mild elevation in transaminases noted in [facility] records -base line not known 9. Right upper quadrant abdominal pain, acute, present on admission. Resolved - Procurement Analyst phoned on September 12 noted recent complaints of ongoing abdominal pain with anorexia. Labs suggest possible biliary obstruction more likely hepatocellular injury. - Imaging is consistent with thickened gallbladder wall of acalculous cholecystitis on both CT and abdominal ultrasound - HIDA scan normal 10. Elevated troponin of unknown significance, acute, present on admission, improving. - Mildly elevated and trended down in the setting of renal failure however patient does have a history of CAD, CHF, Sick Sinus Syndrome and AICD placement. - Continue to monitor and treat other conditions as above. 12. Hematuria, unknown chronicity, present on admission. - Etiology unknown with no nephrolithiasis seen on imaging. Some evidence of possible UTI. -out patient follow up 13. Possible disseminated intravascular coagulopathy, acute, present on admission. resolved - Likely secondary to severe sepsis. 14. Hyperglycemia, acute, present on admission, resolved - A1c 6.3. 15. History of severe bradycardia, chronic, present on admission. - Likely sick sinus syndrome. Records indicate that the patient was considered for a possible pacemaker to replace his AICD. . Disposition: Anticipate discharge tomorrow, 09/16/2016, with plan for outpatient follow-up appointment and Physical Therapy, as needed. . Exam Vital Signs (Last) Date Time Temp Pulse Resp B/P Pulse Ox O2 Delivery O2 Flow Rate FiO2 09/17/16 10:24 36.2 90 18 126/81 100 Nasal Cannula 2.00 09/13/16 11:30 40 Exam Eyes; johnie, eom intact ENMT; no oral lesions, well hydrated, right CVL CV; regular, soft systolic murmur, no JVD, Resp; coarse but otherwise clear GI; soft, non tender, non acute Skin; multiple bruised areas, no rash Neuro; 2-12 intact, no obvious motor or sensory defects Test 09/11/16 20:00 09/11/16 22:22 09/12/16 07:15 09/12/16 07:25 Hemoglobin A1c 6.3% (4.8-5.6) Hold Flores Top Tube Received (Received) Digoxin Level < 0.3nG/mL (0.9-2.0) Urine Color Dark yellow (YELLOW) Urine Appearance Slightly cloudy Urine pH 5.5 (5.0-8.0) Urine Specific [place] 1.021 (1.003-1.035) Urine Protein >300mg/dL (NEG,TRACE) Urine Glucose (UA) 100mg/dL (NEGATIVE) Urine Ketones Negativemg/dL (NEGATIVE) Urine Occult Blood Large (NEGATIVE) Urine Nitrite Negative (NEGATIVE) Urine Bilirubin Moderate (NEGATIVE) Urine Ictotest Positive (Negative) Urine Urobilinogen 2.0mg/dL (NORMAL) Urine Leukocyte Esterase Trace (NEGATIVE) Urine RBC 11-50/hpf (0-2) Urine WBC 11-50/hpf (0-5) Urine Epithelial Cells Few/hpf (NONE-MOD) Urine Crystals Amorphous urates (NONE Urine Bacteria Moderate/hpf (NONE-FEW) Urine Hyaline Casts None/lpf (NONE) Urine Granular Casts None seen (NONE SEEN) Urine Waxy Casts None seen (NONE SEEN) Urine Red Blood Cell Casts None seen (NONE SEEN) Urine White Blood Cell Casts None seen (NONE SEEN) Urine Mucus None seen (None Seen) Urine Trichomonas None seen (NONE SEEN) Urine Yeast None (NONE SEEN) Urinalysis Comment None Urine Culture Reflexed Indicated Hold Purple Top Tube Received (Received) Fibrinogen 237mg/dL (157-380) D-Dimer 8.77mg/L FEU (<0.50) Hold Blue Top Tube Received (Received) Hepatitis A IgM Antibody Negative (Negative) Hepatitis B Surface Antigen Negative (Negative) Hepatitis B Core IgM Antibody Negative (Negative) Hepatitis C Antibody <0.1s/co ratio (0.0-0.9) Hepatitis C Comment Comment (.) Direct Bilirubin 1.6mg/dL (0.0-0.3) Troponin T 0.041ug/L (0.0-0.011) Test 09/12/16 08:00 09/12/16 11:11 09/13/16 03:50 09/14/16 05:05 Hold Red Top Tube Received (Received) Haptoglobin 125mg/dL (34-200) Activated Partial Thromboplast Time 34.4sec (22.8-33.0) Total Creatine Kinase 68U/L (21-232) Pro-B-Type Natriuretic Peptide 2528pg/mL (0-376) Random Vancomycin Level 7.8ug/mL Rx Band Neutrophils % 1% (1-5) Hematology Comments Prothrombin Time 15.7sec (8.1-12.5) Prothromb Time International Ratio 1.46ratio Phosphorus Level 4.2mg/dL (2.5-4.9) Magnesium Level 2.1mg/dL (1.6-2.6) Test 09/15/16 04:30 09/16/16 11:15 09/17/16 06:00 Nucleated Red Blood Cells 1/100 WBC (0-24) Lactic Acid Level 1.4mmol/L (0.4-2.0) Lipase 91U/L (13-60) White Blood Count 9.3th/mm3 (3.8-10.1) Red Blood Count 4.56mil/mm3 (4.40-5.80) Hemoglobin 12.3g/dL (13.8-17.2) Hematocrit 40.2% (41.0-50.0) Mean Corpuscular Volume 88.2fL (81-100) Mean Corpuscular Hemoglobin 27.0pg (27.0-35.0) Mean Corpuscular Hemoglobin Concent 30.6% (32.0-37.0) Red Cell Distribution Width 16.7% (12.3-15.4) Platelet Count 58bil/L (150-400) Neutrophils (%) (Auto) 56.7% (40-74) Lymphocytes (%) (Auto) 11.2% (14-46) Monocytes (%) (Auto) 31.0% (4-12) Eosinophils (%) (Auto) 0.2% (0-5) Basophils (%) (Auto) 0% (0-3) Sodium Level 142mEq/L (134-144) Potassium Level 4.3mEq/L (3.5-5.2) Chloride Level 103mEq/L (97-108) Carbon Dioxide Level 23mmol/L (18-29) Blood Urea Nitrogen 24mg/dL (8-27) Creatinine 1.40mg/dL (0.76-1.27) Estimat Glomerular Filtration Rate 54mL/min (>59) Glucose Level 123mg/dL (60-99) Calcium Level 9.1mg/dL (8.5-10.1) Total Bilirubin 2.7mg/dL (0.0-1.2) Aspartate Amino Transf (AST/SGOT) 138U/L (0-50) Alanine Aminotransferase (ALT/SGPT) 835U/L (0-44) Alkaline Phosphatase 272U/L (25-160) Total Protein 6.0g/dL (6.4-8.4) Albumin 3.5g/dL (3.4-5.0) Procalcitonin 0.25ng/mL (0.00-0.08) Microbiology Results Nasopharyngeal PCR negative, sputum culture negative, MRSA negative, urine culture negative, but culture 2 no growth to date. Discharge Medications Discharge Medications Amiodarone (Amiodarone) 200 Mg Tablet 200 MG PO DAILY (Reported) Clotrimazole 2% (Gyne-Lotrimin 3 2%) 21 Gm Cream.appl 21 GM TOPICAL BID ( Reported) Furosemide (Furosemide) 40 Mg Tablet 120 MG PO TID (Reported) Metoprolol Succinate ER (Metoprolol Succinate ER) 50 Mg Tab.er.24h 50 MG PO DAILY (Reported) Omeprazole (Omeprazole) 20 Mg Tablet.dr 20 MG PO BID (Reported) Pravastatin (Pravastatin) 40 Mg Tablet 40 MG PO HS (Reported) Prazosin (Prazosin) 1 Mg Capsule 1 MG PO HS (Reported) Sertraline HCl (Sertraline) 50 Mg Tablet 50 MG PO BID (Reported) Spironolactone (Spironolactone) 25 Mg Tablet 25 MG PO DAILY (Reported) As needed Albuterol Sulfate (Proair Respiclick) 90 Mcg Aer.pow.ba 90 MCG IH BID PRN PRN For Shortness of Breath (Reported) Epinephrine (Epipen 2-Froylan) 0.3 Mg/0.3 Ml Auto.injct 0.3 MG IJ ONCE PRN PRN For Anaphyllaxis (Reported) Guaifenesin (Guaifenesin ER) 600 Mg Tab.er.12h 600 MG PO BID PRN PRN Secretion Control (Reported) Polyethylene Glycol 3350 (Miralax) 17 Gm Powd.pack 17 GM PO DAILY PRN PRN For Constipation (Reported) Zolpidem (Zolpidem) 5 Mg Tablet 5 MG PO HS PRN PRN For Insomnia (Reported) Miscellaneous Medications Melatonin (Melatonin) 3 Mg Tablet 3 MG PO (Reported) Followup Plan Follow-up plan We would like you to follow u[p with your primary care provider as soon as possible. We would also in several weeks see an Infectious Disease specialist for a "comprehensive" evaluation for these recurrent infection. Discharge Diet: Low fat, Low Sodium, Heart Healthy Discharge Activity: Limited until seen by PCP Follow-up with PCP in: 1 week Time spent 45 minutes spent discharging this patient today, current time is 2:48 pm Grisel Jain MD Sep 17, 2016 14:43 We would also in several weeks see an Infectious Disease specialist for a "comprehensive" evaluation for these recurrent infection. Discharge Diet: Low fat, Low Sodium, Heart Healthy Discharge Activity: Limited until seen by PCP Grisel Jain MD Sep 17, 2016 14:43
--- NOTE | 2016-09-17 14:49 | PROG NOTE ---
[address] [address] PROGRESS NOTE PATIENT: LUIS LEON : 1950 MR#: [id number] ADMIT: 09/11/2016 JOB ID: [id number] DATE: 09/17/2016 INFECTIOUS DISEASE FOLLOW UP NOTE: REASON FOR FOLLOWUP: Septic shock of undetermined source, probably GI. INTERVAL HISTORY: Overnight, the patient says he has continued to improve and he is back now to something better than his normal state of health. He denies headache, sore throat, cough, shortness of breath, chest pain, nausea, vomiting or diarrhea. He always uses oxygen at home and he is in fact using it here, of course, but he does not feel any more short of breath than baseline. PHYSICAL EXAMINATION: Reveals an afebrile gentleman, temperature 36.2, blood pressure 126/81. He is saturating well on 2 L. Respiratory rate 18 and unlabored. Oral cavity without thrush or pharyngitis. Lungs fairly clear. Cardiac tones without any significant murmur or rub. Abdomen obese and slightly distended but nontender throughout and no evident synovitis or inflammation in the lower extremities. LABORATORIES: Include a white count still normal at 9300. Creatinine stable at 1.4. LFTs continuing to improve from their shock liver state initially. His AST is now down to 138, ALT down to 835, alk phos 272. Procalcitonin continuing to decline. It never was very high at 0.95, but at least it is now down to 0.25. Urinalysis: 11-50 white cells. Hep C antibody negative. Micro studies include negative blood cultures. Negative urine cultures. Negative MRSA screen. Negative sputum. IMAGING: Including a HIDA scan of the liver was basically noncontributory. IMPRESSION: This is an extremely odd case of a gentleman who has had three episodes of very serious infection in the last few months at this and two outside hospitals. This episode was associated with white count over 40,000 and septic shock. He rapidly improved and was able to get out of the ICU and is now in his seventh day in the hospital and really doing extremely well. At this point, with a normal white count, procalcitonin and steadily declining. LFTs, I see no reason to prolong his hospital stay as he is eager to be discharged. RECOMMENDATIONS: 1. Go ahead and finish up doxy and meropenem today to finish up our one week. The patient can be discharged later today from my point of view. 2. I have discussed this case in detail with Dr. Jain of the Medicine team. 3. When the patient is re-evaluated at the [facility], I think he should have a colonoscopy as well as a CT scan of the abdomen and pelvis with oral and IV contrast to better elucidate what's causing these recurrent episodes of sepsis which I think is likely originating from the belly. 4. As part of an immune workup, it may be reasonable to get quantitative immunoglobulins, and perhaps a CH 50 level though I think these are probably low yield. 5. ID will go ahead and sign off.
--- NOTE | 2016-09-17 15:50 | NUR ---
Meropenem Meropenem rate increased to infuse over the next 30 min after consultation with pharmacist so that pt. may d/c now.
--- NOTE | 2016-09-17 16:31 | NUR ---
Discharge Pt. is discharged with family member. He is alert and oriented, soboe and c/o chronic neck pain but denies complaints and states he feels ready and comfortable with d/c plan. Pt. is given instructions verbally and in packet and states he understands and will f/u per instructions. Pt. states he has had multiple home medication changes recently and so will consult with his pcp about which to restart and how.
== END 2016-09-17 16:57 | disposition home or self-care (01) | DRG 871 ==
LOC: SED 19:50 → CCU 22:51 → UNDOADMIN 22:51 → PCC 22:51 → CCU 23:27 → PCC 09-14 10:37 → MPC 09-16 01:08
PROVIDERS: ADMIT Internal Medicine; ATTEND Internal Medicine
PROC: 5A1945Z Respiratory Ventilation, 24-96 Consecutive Hours (ICD-10-PCS; principal; 2016-09-11)
PROC: 4A033R1 Measurement of Arterial Saturation, Peripheral, Percutaneous Approach (ICD-10-PCS; 2016-09-11)
PROC: 02HV33Z Insertion of Infusion Device into Superior Vena Cava, Percutaneous Approach (ICD-10-PCS; 2016-09-11)
PROC: 03HY32Z Insertion of Monitoring Device into Upper Artery, Percutaneous Approach (ICD-10-PCS; 2016-09-12)
DX: A41.9 Sepsis, unspecified organism (principal); I50.23 Acute on chronic systolic (congestive) heart failure; J96.01 Acute respiratory failure with hypoxia; J96.02 Acute respiratory failure with hypercapnia; R65.21 Severe sepsis with septic shock; K72.00 Acute and subacute hepatic failure without coma; D65 Disseminated intravascular coagulation [defibrination syndrome]; N17.9 Acute kidney failure, unspecified; J44.1 Chronic obstructive pulmonary disease with (acute) exacerbation; E87.2 Acidosis; E87.5 Hyperkalemia; R31.9 Hematuria, unspecified; I48.2 Chronic atrial fibrillation; Z95.810 Presence of automatic (implantable) cardiac defibrillator; I10 Essential (primary) hypertension; G47.33 Obstructive sleep apnea (adult) (pediatric); E78.5 Hyperlipidemia, unspecified; K81.9 Cholecystitis, unspecified; R00.1 Bradycardia, unspecified; I25.5 Ischemic cardiomyopathy; B99.9 Unspecified infectious disease; R10.11 Right upper quadrant pain; R79.89 Other specified abnormal findings of blood chemistry; E11.65 Type 2 diabetes mellitus with hyperglycemia; E66.9 Obesity, unspecified; Z68.36 Body mass index [BMI] 36.0-36.9, adult